=== PATIENT | female | born 1940 | race Caucasian/White ===

== ENCOUNTER → 2017-07-18 | Outpatient (CLI) | payer MEDICARE ==
[~2017-07-18] MED LIST: ASPIR 8181 MG PO; ATENOLOL 50MG T50 M1 PO; CALCIUM 500 +1 EAC5 PO; CIPRO500 MG PO; CLARITIN10 M2 PO; DETROL2 M1 PO; FOSAMAX 70 MG T70 MG PO; GLUCOPHAGE XR500 MG PO; HYDRALAZINE 2525 MG PO; LISINOPRIL20 MG PO; LISINOPRIL40 MG PO; MOBIC15 MG PO; NEURONTIN 300300 M1 PO; THIAMINE HCL100 MG PO; TRAMADOL 50 MG50 MG PO; TYLENOL EXTRA500 MG PO; VITAFOL-OB+DHA1 EACH PO; VITAMIN E400 UNIT PO; ZOCOR20 MG PO
== END ==
LOC: M.ULTRA 09:25
DX: I10 Essential (primary) hypertension (principal); E11.9 Type 2 diabetes mellitus without complications

== ENCOUNTER 2017-09-09 16:18 | Inpatient (IN) | payer MEDICARE ==
[~2017-09-09] VITALS: Ht 170.2 cm; Wt 52.6 kg
[~2017-09-09 16:18] MED LIST changes: -CIPRO500 MG PO; -DETROL2 M1 PO; -HYDRALAZINE 2525 MG PO; -LISINOPRIL40 MG PO; -THIAMINE HCL100 MG PO; -VITAFOL-OB+DHA1 EACH PO
[2017-09-09 16:25] VITALS: BP 216/91
--- NOTE | 2017-09-09 18:05 | NUR ---
PT ATTEMPTED TO URINATE AT THIS TIME, UNSUCCESSFUL. GIVEN WATER TO DRINK.
[2017-09-09 18:08] LABS: ABSOLUTE LYMPHOCYTES 0.8 thou/uL (0.8-5.3); ABSOLUTE MONOCYTES 0.6 thou/uL (0.0-1.2); ABSOLUTE NEUTROPHILS 6.9 thou/uL (1.6-8.1); BASOPHILS 0.5 %; HEMATOCRIT 45.4 % (37.0-47.0); HEMOGLOBIN 15.2 gm/dL (12.0-15.0); LYMPHOCYTES 10.1 %; MCH 29.8 pg (26.0-34.0); MCHC 33.5 g/dL (28.0-37.0); MCV 89.1 fL (80.0-100.0); MONOCYTES 6.8 %; MPV 7.4 fl. (7.2-11.1); NUCLEATED RBCS 0 /100WBC; PLATELET COUNT* 212 thou/uL (150-400); POLYS 82.6 %; WBC 8.4 thou/uL (4.0-11.0)
[2017-09-09 18:16] LABS: CALCIUM 8.8 mg/dL (8.5-10.1); CREATININE 0.6 mg/dL (0.6-1.3); POTASSIUM 3.9 mmol/L (3.5-5.1)
[2017-09-09 18:18] LABS: INR 1.1; PROTIME 10.8 Seconds (9.20-11.50)
[2017-09-09 18:19] LABS: URINE BILIRUBIN NEGATIVE (Negative); URINE BLOOD 1+ (Negative); URINE CLARITY SL CLOUDY; URINE COLOR YELLOW; URINE GLUCOSE-RANDOM NEGATIVE (Negative); URINE KETONES 2+ (Negative); URINE LEUKOCYTES NEGATIVE (Negative); URINE NITRITE POSITIVE (Negative); URINE PROTEIN TRACE (Negative); URINE UROBILINOGEN 0.2 E.U./dl (0.2-1.0)
[2017-09-09 18:23] LABS: ALBUMIN 3.4 g/dL (3.4-5.0); TOTAL BILIRUBIN 0.6 mg/dL (<0.1-1.0); TOTAL PROTEIN 7.1 g/dL (6.4-8.2)
[2017-09-09 18:25] LABS: BACTERIA >30 Many /HPF (None Seen); CASTS None Seen /LPF (None Seen); CRYSTALS None Seen /LPF (None Seen); SQUAMOUS 0-3 Few /LPF (0-3); URINE RBC 0-2 Rare /HPF (0-2); URINE WBC 0-5 Rare /HPF (0-5)
[2017-09-09 20:18] VITALS: BP 194/84
--- NOTE | 2017-09-09 20:30 | NUR ---
ALERT AND ORIENTED X 4 FEMALE PATIENT TO BED 114 BY CART FROM ER ACCOMPANIED BY IN STABLE CONDITION. ADMISSION ROUTINES IN PROGRESS. CONTINUE TO MONITOR.
[2017-09-09] MEDS ORDERED: DETROL2 M1 PO (21:01)
[2017-09-09] MEDS ORDERED: HYDRALAZINE 2525 MG PO (21:03)
[2017-09-10 04:25] LABS: HEMATOCRIT 41.3 % (37.0-47.0); HEMOGLOBIN 13.9 gm/dL (12.0-15.0); MCH 29.4 pg (26.0-34.0); MCHC 33.6 g/dL (28.0-37.0); MCV 87.4 fL (80.0-100.0); MPV 7.9 fl. (7.2-11.1); RBC 4.72 mil/uL (4.20-5.00); RDW-CV 13.9 % (10.5-14.5); WBC 6.7 thou/uL (4.0-11.0)
[2017-09-10 04:53] LABS: ALBUMIN 2.8 g/dL (3.4-5.0); CALCIUM 8.2 mg/dL (8.5-10.1); CREATININE 0.6 mg/dL (0.6-1.3); POTASSIUM 3.2 mmol/L (3.5-5.1); TOTAL BILIRUBIN 0.5 mg/dL (<0.1-1.0); TOTAL PROTEIN 5.6 g/dL (6.4-8.2)
--- NOTE | 2017-09-10 04:59 | NUR ---
PATIENT HAS REMAINED ALERT AND ORIENTED X 4 THROUGHOUT THE SHIFT WITH SOME SLIGHT FORGETFULNESS. TURNING SELF IN BED. MEDS AND IVF'S PROVIDED ORDERED. RESTING QUIETLY ON HOURLY ROUNDS. CONTINUE TO MONITOR.
[2017-09-10 08:20] VITALS: BP 166/77
--- NOTE | 2017-09-10 13:03 | EKG ---
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: Joelle SANTORO : 1940 Requested By: Adán Garner Order Number: [id number] : Celestine Carrillo Measurements Intervals [place] Rate: 77 P: 18 TX: 175 QRS: -4 QRSD: 93 T: 29 QT: 406 QTc: 460 Interpretive Statements Sinus rhythm Anteroseptal infarct, age indeterminate possible Compared to ECG 08/20/2016 11:22:00 Myocardial infarct finding now present Electronically Signed On 09-10-2017 13:03:34 CDT by Celestine Carrillo [email or web address] <ELECTRONICALLY SIGNED> By: Celestine Carrillo MD, FACC 09/10/17 1303 1836 1836 Celestine Carrillo MD, [facility] /EPI
--- NOTE | 2017-09-10 13:55 | NUR ---
PT.WAS ALERT AND ORIENTED. STATED SHE LIVES WITH HER . HE WORKS FROM ABOUT 7AM TO 5:30 PM. SHE TRIPPED AND FELL AFTER HE LEFT FOR WORK. USUALLY SHE HAS HER CELL PHONE WITH HER AT ALL TIMES BUT SHE DIDN'T TAKE IT WITH HER THAT TIME. SHE HAD TO WAIT UNTIL HE GOT HOME FROM WORK FOR HIM TO HELP HER. SHE MIGHT BE INTERESTED IN A LIFE LINE. SHE USES A CANE AT HOSPITAL. SHE STATED SHE IS NORMALLY INDEPENDENT AT HOME. 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 CM WILL FOLLOW.
--- NOTE | 2017-09-10 16:42 | NUR ---
PATIENT REMAINS ALERT AND ORIENTED. POST OP SHOE IN PLACE. TYLENOL EFFECTIVE FOR GENERAL ACHES. TRANSFERS WITH ASSIST OF 1, GB, AND WALKER. LARGE BM THIS AM. IVF AT 125ML/HR. VOIDING PER TOILET, INCONTINENT AT TIMES. TOLERATING MEALS. PT/OT ORDERED.BED/CHAIR ALARM IN USE. AT BEDSIDE. WILL CONTINUE TO MONITOR.
[2017-09-10 16:55] VITALS: BP 151/79
[2017-09-10 19:40] VITALS: BP 156/63
[2017-09-11] VITALS (7 sets, daily range): BP systolic 147–215; BP diastolic 61–76
[2017-09-11 03:47] LABS: HEMATOCRIT 39.6 % (37.0-47.0); HEMOGLOBIN 13.1 gm/dL (12.0-15.0); MCH 29.7 pg (26.0-34.0); MCHC 33.2 g/dL (28.0-37.0); MCV 89.3 fL (80.0-100.0); RBC 4.43 mil/uL (4.20-5.00); RDW-CV 14.2 % (10.5-14.5); WBC 5.1 thou/uL (4.0-11.0)
[2017-09-11 04:04] LABS: CALCIUM 7.8 mg/dL (8.5-10.1); CREATININE 0.5 mg/dL (0.6-1.3); POTASSIUM 3.8 mmol/L (3.5-5.1)
--- NOTE | 2017-09-11 05:37 | NUR ---
PATIENT HAS REMAINED ALERT AND ORIENTED X 4 WITH FORGETFULNESS. RESTING QUIETLY ON HOURLY ROUNDS. INCONT OF URINE. ASSIST WITH BRIEF CHANGES. TURNING SELF. VITAL SIGNS STABLE. MEDS AND IVF'S PER ORDERS. MEDICATED FOR PAIN X 2 TO GOOD EFFECT. CONTINUE TO MONITOR.
--- NOTE | 2017-09-11 15:16 | NUR ---
Nutrition: Pt seen for low BMI. Pt stated she usually weighed 120#. Her noticed wt loss recently, and when pt came to hospital, she realized she was down to 116#. She stated she didn't know why she has lost wt. She still has a good appetite. Admitted for fall at home. Pt is eating well. No malnutrition noted. She stated she takes Ca and vit D on occasion, not daily because it constipates her. She had some food preferences which RD has alerted kitchen about and ordered. Unintended weight loss R/T etiology unknown AEB pt self report of 4# loss. Encouraged pt to watch her wt and if she loses any more, talk with her PCP about it. Also, mentioned OTC oral supplements. Appears at Mild nutrition risk at this time.
--- NOTE | 2017-09-11 17:57 | NUR ---
PATIENT SOMEWHAT PROGRESSING TOWARDS GOALS. AOX4, BUT VERY FORGETFUL. CAN APPEAR TO BE ORIENTED SOMETIMES WHEN MAKING INAPPROPRAITE STATEMENTS. DENIES PAIN THROUGHOUT SHIFT. REMAINS WEAK AND UNSTEADY UPON STANDING. INCONTINENT TO BRIEF, NEEDS FREQUENT CHECKS PATIENT STATES HER BRIEF IS DRY WHEN IT IS SOILED. BLOOD PRESSURES HAVE REMAINED HIGH THROUGHOUT SHIFT. DR GORDON NOTIFIED, NEW ORDERS FOR QID HYDRALAZINE SCHEDULED. PATIENT'S PRESENT THIS EVENING, HAS LEFT A LIST FOR PHYSICIAN TO ADRESS HIS CONCERNS ABOUT PATIENT AT HOME. OTHERWISE, NO NEW CONCERNS FOR NURSING EXPRESSED.
[2017-09-12 00:28] VITALS: BP 182/75
[2017-09-12 04:19] VITALS: BP 185/66
--- NOTE | 2017-09-12 06:43 | NUR ---
Alert and oriented x 4. Orhto shoe placed on patient for L great toe fracture. She is up with assist x1 to the bedside commode. She is incontinent of urine frequently and has a brief on which is often saturated,skin is intact. She had tylenol for a headache at bedtime. She has slept well.
[2017-09-12 08:30] VITALS: BP 157/77
--- NOTE | 2017-09-12 11:44 | NUR ---
SPOKE WITH PT. ABOUT DISCHARGE PLANNING. SHE WAS AGREEABLE TO GOING TO SNF FOR SHORT TERM. SHE WOULD LIKE TO GO TO [facility]. REFERRAL MADE TO [facility]. FAXED INFORMATION. PROBABLE DISCHARGE TOMORROW. LEFT MESSAGE ON HER HUSBANDS CHRISTEN.
--- NOTE | 2017-09-12 14:33 | NUR ---
[facility] SAID THEY CAN ACCEPT PT.TOMORROW IF READY FOR DISCHARGE. INFORMED PT.AND .
[2017-09-12 15:43] VITALS: BP 152/58
[2017-09-12 20:30] VITALS: BP 170/65
[2017-09-13 00:13] VITALS: BP 170/54
--- NOTE | 2017-09-13 06:57 | NUR ---
ALERT AND ORIENTED X4. DENIES NEED FOR PAIN MEDICATION. NO C/O DIFFICULTY WITH VOIDING. WEIGHTBEARING TOLERATED TO LEFT LOWER EXTREMITY. CALL LIGHT WITHIN REACH. UP WITH 1 ASIST. INCONTINENT X1 LAST NIGHT OF URINE.
[2017-09-13 08:00] VITALS: BP 181/62
[2017-09-13] MEDS ORDERED: LISINOPRIL40 MG PO (08:55)
[2017-09-13] MEDS ORDERED: CIPRO500 MG PO (08:55)
[2017-09-13] MEDS ORDERED: TRAMADOL 50 MG50 MG PO (08:56)
--- NOTE | 2017-09-13 09:25 | NUR ---
TEX called Ernestina with [facility] and discussed pt to dc to SNF today. TEX faxed orders to fax [phone]. Ernestina scheduled transportation for pt to dc to SNF [facility] at 13:00. TEX discussed with pt nurse and with pt/family.
[2017-09-13 12:44] VITALS: BP 181/62
--- NOTE | 2017-09-13 12:58 | NUR ---
PATIENT LEFT UNIT BY WHEELCHAIR WITH NURSING STAFF AT 1300. EDUCATED PATIENT AND ON DISCHARGE INSTRUCTIONS AND NEW MED SCRIPTS. PATIENT AND VERBALIZED UNDERSTANDING. IV DC'D. ALL BELONGINGS LEFT WITH PATIENT.
[2017-09-13 13:02] VITALS: BP 181/62
== END 2017-09-13 13:04 | DRG 563 ==
LOC: M.ERS 16:18 → M.TBA-ER 18:32 → M.ORTHSURG 18:32
PROVIDERS: Family Medicine; Physician Assistant Surgical; ADMIT Internal Medicine
DX: S92.402A Displaced unspecified fracture of left great toe, initial encounter for closed fracture (principal); N39.0 Urinary tract infection, site not specified; E44.1 Mild protein-calorie malnutrition; Z68.1 Body mass index [BMI] 19.9 or less, adult; E11.9 Type 2 diabetes mellitus without complications; F17.210 Nicotine dependence, cigarettes, uncomplicated; I10 Essential (primary) hypertension; G89.29 Other chronic pain; M54.9 Dorsalgia, unspecified; B96.20 Unspecified Escherichia coli [E. coli] as the cause of diseases classified elsewhere; W01.0XXA Fall on same level from slipping, tripping and stumbling without subsequent striking against object, initial encounter; Y93.01 Activity, walking, marching and hiking; Z79.2 Long term (current) use of antibiotics; Z79.82 Long term (current) use of aspirin; Z79.899 Other long term (current) drug therapy; Z88.0 Allergy status to penicillin; Z88.2 Allergy status to sulfonamides; Y92.098 Other place in other non-institutional residence as the place of occurrence of the external cause; Y99.8 Other external cause status

== ENCOUNTER 2018-01-25 13:34 | Inpatient (IN) | payer MEDICARE ==
[~2018-01-25] VITALS: Ht 170.2 cm; Wt 55.3 kg
[~2018-01-25 13:34] MED LIST changes: +CIPRO500 MG PO; +DETROL2 M1 PO; +HYDRALAZINE 2525 MG PO; +LISINOPRIL40 MG PO
[2018-01-25 13:38] VITALS: BP 175/72
[2018-01-25 14:26] LABS: ABSOLUTE BASOPHILS 0.1 thou/uL (0.0-0.2); ABSOLUTE EOSINOPHILS 0.1 thou/uL (0.0-0.7); ABSOLUTE LYMPHOCYTES 1.3 thou/uL (0.8-5.3); ABSOLUTE MONOCYTES 0.5 thou/uL (0.0-1.2); ABSOLUTE NEUTROPHILS 4.4 thou/uL (1.6-8.1); BASOPHILS 1.2 %; EOSINOPHILS 1.2 %; HEMATOCRIT 48.3 % (37.0-47.0); HEMOGLOBIN 15.8 gm/dL (12.0-15.0); LYMPHOCYTES 20.9 %; MCH 29.4 pg (26.0-34.0); MCHC 32.8 g/dL (28.0-37.0); MCV 89.5 fL (80.0-100.0); MONOCYTES 7.9 %; NUCLEATED RBCS 0 /100WBC; PLATELET COUNT* 195 thou/uL (150-400); POLYS 68.8 %; RBC 5.39 mil/uL (4.20-5.00); RDW-CV 13.6 % (10.5-14.5); WBC 6.4 thou/uL (4.0-11.0)
[2018-01-25 14:41] LABS: INR 1.1; PROTIME 10.8 Seconds (9.20-11.50)
[2018-01-25 14:56] LABS: ANION GAP 8 mmol/L (7-16); BUN 15 mg/dL (7-18); CALCIUM 8.6 mg/dL (8.5-10.1); CHLORIDE 101 mmol/L (98-107); CO2 29 mmol/L (21-32); CREATININE 0.8 mg/dL (0.6-1.3); GLUCOSE 145 mg/dL (70-99); POTASSIUM 3.6 mmol/L (3.5-5.1); SODIUM 138 mmol/L (136-145)
[2018-01-25 15:03] LABS: ALBUMIN 3.1 g/dL (3.4-5.0); ALKALINE PHOSPHATASE 89 U/L (46-116); SGOT 49 U/L (15-37); SGPT 44 U/L (30-65); TOTAL BILIRUBIN 0.4 mg/dL (<0.1-1.0); TOTAL PROTEIN 6.8 g/dL (6.4-8.2); TROPONIN-I LEVEL <0.06 ng/mL (<0.06)
[2018-01-25 15:39] LABS: URINE BILIRUBIN NEGATIVE (Negative); URINE BLOOD NEGATIVE (Negative); URINE CLARITY CLEAR; URINE COLOR YELLOW; URINE GLUCOSE-RANDOM NEGATIVE (Negative); URINE KETONES NEGATIVE (Negative); URINE LEUKOCYTES-REFLEX NEGATIVE (Negative); URINE NITRITE-REFLEX NEGATIVE (Negative); URINE PROTEIN NEGATIVE (Negative); URINE UROBILINOGEN 0.2 E.U./dl (0.2-1.0)
[2018-01-25 16:46] VITALS: BP 187/76
[2018-01-25 17:11] VITALS: BP 199/90
[2018-01-25 20:00] VITALS: BP 142/65
[2018-01-26] VITALS: BP 164/64
[2018-01-26 04:00] VITALS: BP 167/68
[2018-01-26 08:00] VITALS: BP 175/67
--- NOTE | 2018-01-26 10:02 | EKG ---
[place] [address] ELECTROCARDIOGRAM REPORT Name: SHYANNE VILLAGOMEZ Room: [address] ADM IN .R.#: [id number] Admission: 01/25/18 Attend Phys: Benjamin Vazquez MD Discharge: Date of : 40 Report #: [id number] THIS REPORT FOR: //name// [facility] ED Test Date: 2018-01-25 Test Time: 14:36:08 Pat Name: SHYANNE VILLAGOMEZ Department: Room: [facility] Gender: F Fire Official: Joelle FINN : 1940 Requested By: Bing Nayak Order Number: [id number] MD: Jose Stephenson Measurements Intervals [place] Rate: 62 P: -7 IN: 176 QRS: -15 QRSD: 83 T: 17 QT: 449 QTc: 456 Interpretive Statements Sinus rhythm Probable left atrial enlargement Borderline left axis deviation Minimal ST depression, lateral leads Compared to ECG 09/09/2017 18:36:35 Myocardial infarct finding no longer present Electronically Signed On 01-26-2018 10:02:12 CDT by Jose Stephenson [email or web address] <ELECTRONICALLY SIGNED> By: Jose Stephenson MD, FACC 01/26/18 1002 1436 1436 Jose Stephenson MD, [facility] /EPI
[2018-01-26 11:44] LABS: HEMOGLOBIN 14.4 gm/dL (12.0-15.0); MCHC 32.7 g/dL (28.0-37.0); MCV 88.9 fL (80.0-100.0); RBC 4.94 mil/uL (4.20-5.00); RDW-CV 13.5 % (10.5-14.5); WBC 5.1 thou/uL (4.0-11.0)
[2018-01-26 11:49] VITALS: BP 135/74
[2018-01-26 12:13] LABS: ALBUMIN 2.6 g/dL (3.4-5.0); CALCIUM 8.5 mg/dL (8.5-10.1); CREATININE 0.7 mg/dL (0.6-1.3); POTASSIUM 3.6 mmol/L (3.5-5.1); TOTAL BILIRUBIN 0.5 mg/dL (<0.1-1.0); TOTAL PROTEIN 5.8 g/dL (6.4-8.2)
[2018-01-26 15:45] VITALS: BP 158/67
[2018-01-26 19:45] VITALS: BP 179/85
[2018-01-27] VITALS: BP 158/68
[2018-01-27 04:00] VITALS: BP 169/59
[2018-01-27 08:00] VITALS: BP 155/63
[2018-01-27 12:00] VITALS: BP 118/66
--- NOTE | 2018-01-27 13:54 | 2DMMODE ---
[place] [address] 2 D/M-MODE ECHOCARDIOGRAM Name: SHYANNE VILLAGOMEZ Room: [address] IN [facility]#: [id number] Admission: 01/25/18 Attend Phys: Benjamin Vazquez, Discharge: Date of : 40 Date of Service: 01/27/18 1354 Report #: [id number] THIS REPORT FOR: //name// APPROVED REPORT Study performed: 01/27/2018 10:31:00 EXAM: Comprehensive 2D, Doppler, and color-flow Echocardiogram Patient Location: In-Patient Room #: [facility] Status: routine BSA: 1.57 HR: 56 bpm BP: 155/63 mmHg Rhythm: NSR Other Information Study Quality: Good Indications CVA/TIA Murmur Echo Enhancing Agent Indication: Rule out Shunt Agent(s) / Amount(s) Used: Agitated Saline 10 cc 2D Dimensions IVSd: 16.46 (7-11mm) LVOT Diam: 19.65 (18-24mm) LVDd: 27.25 mm PWd: 16.63 (7-11mm) Ascending Ao: 34.62 (22-36mm) LVDs: 16.40 (25-40mm) Aortic Root: 30.29 mm Volumes Left Atrial Volume (Systole) LA ESV Index: 38.80 mL/m2 Aortic Valve AoV Peak Robinson.: 1.51 m/s AO Peak Gr.: 9.11 mmHg LVOT Max P.69 mmHg AO Mean Gr.: 4.71 mmHg LVOT Mean P.82 mmHg LVOT Max V: 0.96 m/s AO V2 VTI: 34.05 cm LVOT Mean V: 0.62 m/s CHARLES (VTI): 2.05 cm2 LVOT V1 VTI: 23.06 [place] [address] 2 D/M-MODE ECHOCARDIOGRAM Name: SHYANNE VILLAGOMEZ Room: [address] IN .R.#: [id number] Admission: 01/25/18 Attend Phys: Benjamin Vazquez, Discharge: Date of : 40 Date of Service: 01/27/18 1354 Report #: [id number] Mitral Valve MV Mean Gr.: 1.95 mmHg E/A Ratio: 0.77 MV Decel. Time: 394.68 ms MV E Max Robinson.: 0.83 m/s MV PHT: 114.46 ms MVA (PHT): 1.92 cm2 TDI E/Lateral E': 13.83 E/Medial E': 11.86 Medial E' Robinson.: 0.07 m/s Lateral E' Robinson.: 0.06 m/s Pulmonary Valve PV Peak Robinson.: 0.71 m/s PV Peak Gr.: 2.01 mmHg Tricuspid Valve RAP Estimate: 5.00 mmHg TR Peak Gr.: 17.88 mmHg RVSP: 23.00 mmHg PA Pressure: 23.00 mmHg Left Ventricle The left ventricle is normal size. There is normal LV segmental wall motion. Moderate concentric left ventricular hypertrophy. Left ventricular systolic function is normal. The left ventricular ejection fraction is within the normal range. LVEF is >70%. Grade I - abnormal relaxation pattern. Right Ventricle The right ventricle is normal size. The right ventricular systolic function is normal. Atria Left atrium is mildly dilated. Interatrial septum is intact without evidence of ASD or PFO. The right atrium size is normal. Aortic Valve Mild aortic valve sclerosis. No aortic regurgitation is present. There is no aortic valvular stenosis. Mitral Valve There is severe mitral annular calcification. Trace mitral regurgitation. No mitral stenosis. Tricuspid Valve The tricuspid valve is normal in structure[place] [address] 2 D/M-MODE ECHOCARDIOGRAM Name: SHYANNE VILLAGOMEZ Room: [address] IN M.R.#: [id number] Admission: 01/25/18 Attend Phys: Benjamin Vazquez, Discharge: Date of : 40 Date of Service: 01/27/18 1354 Report #: [id number] regurgitation. No pulmonary hypertension. Pulmonic Valve The pulmonary valve is normal in structure. There is no pulmonic valvular regurgitation. Great Vessels The aortic root is normal in size. IVC is normal in size and collapses >50% with inspiration. Pericardium There is no pericardial effusion. <Conclusion> The left ventricle is normal size. Moderate concentric left ventricular hypertrophy. There is normal LV segmental wall motion. LVEF is >70%. There is severe mitral annular calcification. No mitral stenosis. Grade I - abnormal relaxation pattern. Mild aortic valve sclerosis. There is no aortic valvular stenosis. No aortic regurgitation is present. <ELECTRONICALLY SIGNED> By: Gerson Perez MD, FACC 01/27/18 1354 53 135 Gerson Perez MD, FACC /INF
[2018-01-27 16:00] VITALS: BP 167/71
[2018-01-27 20:00] VITALS: BP 179/69
[2018-01-28] VITALS (7 sets, daily range): BP systolic 160–187; BP diastolic 70–77
[2018-01-28] MEDS ORDERED: THIAMINE HCL100 MG PO (12:43)
[2018-01-28] MEDS ORDERED: VITAFOL-OB+DHA1 EACH PO (12:45)
--- NOTE | 2018-01-30 19:14 | CON ---
[address] [address] CONSULTATION Name: SHYANNE VILLAGOMEZ Room: [address] IN M.R.#: [id number] Admission: 01/25/18 Attend Phys: Benjamin Vazquez MD Discharge: 01/28/18 Date of : 40 Report #: [id number] THIS REPORT FOR: //name// CC: Socorro Carbone DATE OF SERVICE: 01/26/2018 HISTORY OF PRESENT ILLNESS: This is a 77-year-old female patient who indicated that she woke up yesterday because she was having some difficulty with double vision. Further history is not clear because the patient does not know where the double vision is. It is moderately severe. She tells me that it is not associated with any headache, but had that headache earlier. She has difficulty with walking in her baseline. That is longstanding. Apparently, there is difficulty with the walking became worst when it happened and then, she fell down. She did not pass out. She did not have any documented hypotension and in fact, she checks her blood pressure on a regular basis and she does not have any history of hypotension. REVIEW OF SYSTEMS: Indicates that she has some bulging disk. She has some sciatica, hypertension, diabetes. Her blood pressure usually stays higher than normal. She denies any history of stroke. She has no new eye, ENT, respiratory, GI, , musculoskeletal, constitutional, dermatological, hematological, psychiatric, throat, allergic symptoms associated with present symptomatology. PAST MEDICAL HISTORY: Negative for any stroke. FAMILY HISTORY: Negative for any early age stroke. SOCIAL HISTORY: She smokes about 1 pack a day and she drinks at least 2 alcoholic drinks every night. PHYSICAL EXAMINATION: Indicates that she is alert, oriented. Her speech, concentration, fund of knowledge and memory is at her baseline. Cranial nerve examination 2-12 indicates that there may be mild nystagmus, some difficulty in adducting the left eye, but was otherwise unremarkable. She has symmetrical strength, sensation, reflexes and tone in all 4 extremities. There is no cerebellar sign. I could not look at the fundus. Pulses are difficult to feel. She has no edema, cyanosis or jaundice. She is thinly built individual who does not have any dysmorphic features of eyes, ears and face. Cardiac examination is unremarkable. No respiratory difficulty, but some rhonchi was noticed on both sides. Her blood pressure was 135/74, pulse is 67, temperature is 99.4. [place] [address] CONSULTATION Name: SHYANNE VILLAGOMEZ Room: [address]#: [id number] Admission: 01/25/18 Attend Phys: Benjamin Vazquez MD Discharge: 01/28/18 Date of : 40 Report #: [id number] LABORATORY DATA: White count is normal at 5.1. GFR is normal at 81. She did have an MRI of the brain, which does not show any acute changes. MRAs were also mostly unremarkable except for slight stenosis. IMPRESSION: The patient gives a history of walking difficulty as well as some difficulty with double vision. History is poorly defined. She does have some nonspecific paresthesias also there. We will check some more blood workup like TSH and collagen vascular workup. I doubt we will find any etiologies. She does need an ENT evaluation. I will go ahead and give her a thiamine. RECOMMENDATION: 1. Thiamine. 2. Evaluation by PT, OT. 3. TSH. 4. Vitamin B12. 5. We will see if any of this workup show any etiology and then go from there. Thank you very much for this referral. <ELECTRONICALLY SIGNED> By: Ajay Negron MD 01/30/181913 19 36Ajay Negron MD /nt
== END 2018-01-28 18:16 | disposition home or self-care (01) | DRG 69 ==
LOC: M.ERS 13:34 → M.2W 15:08 → M.TBA-ER 15:08 → M.2W 16:58
PROVIDERS: Internal Medicine; Nurse Practitioner Family
DX: G45.9 Transient cerebral ischemic attack, unspecified (principal); E44.0 Moderate protein-calorie malnutrition; Z68.1 Body mass index [BMI] 19.9 or less, adult; R27.0 Ataxia, unspecified; E78.5 Hyperlipidemia, unspecified; E11.9 Type 2 diabetes mellitus without complications; I10 Essential (primary) hypertension; R01.1 Cardiac murmur, unspecified; F17.210 Nicotine dependence, cigarettes, uncomplicated; I35.8 Other nonrheumatic aortic valve disorders; F10.10 Alcohol abuse, uncomplicated; M54.30 Sciatica, unspecified side; E56.9 Vitamin deficiency, unspecified; Z79.82 Long term (current) use of aspirin; Z79.84 Long term (current) use of oral hypoglycemic drugs; Z88.2 Allergy status to sulfonamides; Z79.899 Other long term (current) drug therapy; Z88.0 Allergy status to penicillin; Z86.73 Personal history of transient ischemic attack (TIA), and cerebral infarction without residual deficits; Z71.6 Tobacco abuse counseling

== ENCOUNTER 2018-08-18 17:14 | Emergency (ER) | payer MEDICARE ==
[~2018-08-18] VITALS: Ht 170.2 cm; Wt 56.7 kg
[~2018-08-18 17:14] MED LIST changes: +THIAMINE HCL100 MG PO; +VITAFOL-OB+DHA1 EACH PO
[2018-08-18 17:56] LABS: ABSOLUTE BASOPHILS 0.1 thou/uL (0.0-0.2); ABSOLUTE LYMPHOCYTES 1.3 thou/uL (0.8-5.3); ABSOLUTE MONOCYTES 0.6 thou/uL (0.0-1.2); ABSOLUTE NEUTROPHILS 5.6 thou/uL (1.6-8.1); BASOPHILS 1.1 %; EOSINOPHILS 0.3 %; HEMATOCRIT 45.7 % (37.0-47.0); HEMOGLOBIN 15.3 gm/dL (12.0-15.0); LYMPHOCYTES 16.6 %; MCH 29.8 pg (26.0-34.0); MCHC 33.5 g/dL (28.0-37.0); MCV 89.1 fL (80.0-100.0); MONOCYTES 7.7 %; MPV 8.1 fl. (7.2-11.1); NUCLEATED RBCS 0 /100WBC; PLATELET COUNT* 198 thou/uL (150-400); POLYS 74.3 %; RBC 5.13 mil/uL (4.20-5.00); RDW-CV 13.4 % (10.5-14.5); WBC 7.5 thou/uL (4.0-11.0)
[2018-08-18 18:05] LABS: CALCIUM 9.2 mg/dL (8.5-10.1); CREATININE 0.6 mg/dL (0.6-1.3); POTASSIUM 4.7 mmol/L (3.5-5.1)
[2018-08-18 18:14] LABS: ALBUMIN 3.6 g/dL (3.4-5.0); TOTAL BILIRUBIN 1.1 mg/dL (<0.1-1.0); TOTAL PROTEIN 7.8 g/dL (6.4-8.2)
[2018-08-18 19:40] LABS: URINE BILIRUBIN NEGATIVE (Negative); URINE BLOOD TRACE (Negative); URINE CLARITY CLEAR; URINE COLOR YELLOW; URINE GLUCOSE-RANDOM NEGATIVE (Negative); URINE KETONES TRACE (Negative); URINE PROTEIN NEGATIVE (Negative); URINE SPECIFIC GRAVITY 1.015 (1.005-1.030); URINE UROBILINOGEN 0.2 E.U./dl (0.2-1.0)
[2018-08-18 19:46] LABS: URINE LEUKOCYTES-REFLEX 2+ (Negative); URINE NITRITE-REFLEX POSITIVE (Negative)
[2018-08-18 19:47] LABS: BACTERIA-REFLEX >30 Many /HPF (None Seen); CASTS None Seen /LPF (None Seen); CRYSTALS None Seen /LPF (None Seen); SQUAMOUS NONE SEEN /LPF (0-3); URINE RBC None Seen /HPF (0-2); URINE WBC-REFLEX 0-5 Rare /HPF (0-5)
[2018-08-18] MEDS ORDERED: CIPRO250 M1 PO (19:58)
[2018-08-18 20:34] VITALS: BP 212/104
--- NOTE | 2018-08-19 10:48 | EKG ---
[place] [address] ELECTROCARDIOGRAM REPORT Name: SHYANNE VILLAGOMEZ Room: [facility]#: [id number] Admission: 08/18/18 Attend Phys: Discharge: 08/18/18 Date of : 40 Report #: [id number] THIS REPORT FOR: //name// [facility] ED Test Date: 2018-08-18 Test Time: 19:07:26 Pat Name: SHYANNE GATESSYDNEY Department: Room: Gender: F Manager Instrumentation: Joelle LANIER : 1940 Requested By: Tanja Buckner Order Number: [id number] MD: Jose Stephenson Measurements Intervals [place] Rate: 69 P: 19 TN: 170 QRS: -6 QRSD: 95 T: 30 QT: 433 QTc: 464 Interpretive Statements Sinus rhythm Minimal ST depression, lateral leads Baseline wander in lead(s) I,III,aVL,aVF Compared to ECG 01/25/2018 14:36:08 No significant changes Electronically Signed On 08-19-2018 10:48:05 CDT by Jose Stephenson [email or web address] <ELECTRONICALLY SIGNED> By: Jose Stephenson MD, [facility] 08/19/18 1048 1907 1907 Jose Stephenson MD, [facility] /EPI
== END 2018-08-18 20:34 | disposition home or self-care (01) ==
LOC: M.ERS 17:14
PROVIDERS: Personal Emergency Response Attendant
DX: R41.82 Altered mental status, unspecified (principal); N39.0 Urinary tract infection, site not specified; I10 Essential (primary) hypertension; E11.9 Type 2 diabetes mellitus without complications; M54.30 Sciatica, unspecified side; Z88.0 Allergy status to penicillin; Z88.2 Allergy status to sulfonamides

== ENCOUNTER 2018-10-17 12:24 | Inpatient (IN) | payer MEDICARE ==
[~2018-10-17] VITALS: Ht 170.2 cm; Wt 56.7 kg
[~2018-10-17 12:24] MED LIST changes: +CIPRO250 M1 PO
[2018-10-17 12:27] VITALS: BP 163/57
[2018-10-17 14:09] LABS: HEMATOCRIT 41.5 % (37.0-47.0); HEMOGLOBIN 13.9 gm/dL (12.0-15.0); MCH 29.7 pg (26.0-34.0); MCHC 33.4 g/dL (28.0-37.0); MPV 7.2 fl. (7.2-11.1); NUCLEATED RBCS 0 /100WBC; PLATELET COUNT* 216 thou/uL (150-400); RBC 4.67 mil/uL (4.20-5.00); WBC 11.4 thou/uL (4.0-11.0)
[2018-10-17 14:22] LABS: ANION GAP 9 mmol/L (7-16); BUN 15 mg/dL (7-18); CHLORIDE 92 mmol/L (98-107); CO2 27 mmol/L (21-32); CREATININE 0.9 mg/dL (0.6-1.3); GLUCOSE 121 mg/dL (70-99); SODIUM 128 mmol/L (136-145)
[2018-10-17 14:23] LABS: ABSOLUTE EOSINOPHILS 0.2 thou/uL (0.0-0.7); ABSOLUTE LYMPHOCYTES 0.6 thou/uL (0.8-5.3); ABSOLUTE MONOCYTES 0.2 thou/uL (0.0-1.2); ABSOLUTE NEUTROPHILS 10.4 thou/uL (1.6-8.1); ANISOCYTOSIS 1+; PLATELET ESTIMATE ADEQUATE; POIKILOCYTOSIS 1+
[2018-10-17 14:32] LABS: ALBUMIN 3.1 g/dL (3.4-5.0); ALKALINE PHOSPHATASE 77 U/L (46-116); LIPASE 136 U/L (73-393); SGOT 19 U/L (15-37); SGPT 12 U/L (30-65); TOTAL BILIRUBIN 0.7 mg/dL (<0.1-1.0); TOTAL PROTEIN 6.9 g/dL (6.4-8.2); TROPONIN-I LEVEL <0.06 ng/mL (<0.06)
[2018-10-17] MEDS ORDERED: MOBIC15 MG PO (14:53)
[2018-10-17 17:30] VITALS: BP 137/78
[2018-10-17 17:36] VITALS: BP 187/76
--- NOTE | 2018-10-17 19:35 | NUR ---
RECEIVED REPORT FROM ER AT 1730. PT AOX4, UP WITH ASSIST. 02 SAT 90'S RA. TELE IN PLACED TRACING SR ON MONITOR. DENIES PAIN. PT LUNG SOUND DIMINISHED. LAST BM TODAY, HAD DIARRHEA. PT FOR ACCU CHECK. ADMISSION ASSESSMENT CHARTED. GIVE REPORT TO GISELE SANDOVAL. FALL PRECAUTION, HOURLY ROUNDING. CALL LIGHT WITHIN REACH. WILL CONTINUE TO MONITOR.
[2018-10-17 20:00] VITALS: BP 136/54
[2018-10-18] VITALS (92 sets, daily range): BP systolic 41–190; BP diastolic 21–100
--- NOTE | 2018-10-18 01:03 | NUR ---
PT ALERT ORIENTED, UP TO BR WITH ASSIST OF ONE. ON RA. SWALLOWING WITHOUT CHOKING, COUGHING OR POCKETING OF FOOD. AT INITAL ASSESSMENT NO IVF RUNNING ON PT. ORDER FOUND FOR IVF. NS AT 100MLS/HR STARTED AT 2140. TELEMETRY SHOWS SR.
[2018-10-18 03:55] LABS: ABSOLUTE LYMPHOCYTES 2.1 thou/uL (0.8-5.3); ABSOLUTE MONOCYTES 0.7 thou/uL (0.0-1.2); ABSOLUTE NEUTROPHILS 7.5 thou/uL (1.6-8.1); BASOPHILS 0.4 %; EOSINOPHILS 0.1 %; HEMATOCRIT 31.2 % (37.0-47.0); LYMPHOCYTES 20.4 %; MCH 29.7 pg (26.0-34.0); MCHC 33.2 g/dL (28.0-37.0); MCV 89.5 fL (80.0-100.0); MONOCYTES 6.5 %; MPV 7.4 fl. (7.2-11.1); NUCLEATED RBCS 0 /100WBC; PLATELET COUNT* 269 thou/uL (150-400); POLYS 72.6 %; RBC 3.49 mil/uL (4.20-5.00); RDW-CV 12.9 % (10.5-14.5); WBC 10.3 thou/uL (4.0-11.0)
[2018-10-18 03:56] LABS: HEMOGLOBIN 10.4 gm/dL (12.0-15.0)
[2018-10-18 04:13] LABS: ALBUMIN 2.2 g/dL (3.4-5.0); CREATININE 0.8 mg/dL (0.6-1.3); POTASSIUM 4.2 mmol/L (3.5-5.1); TOTAL BILIRUBIN 0.5 mg/dL (<0.1-1.0); TOTAL PROTEIN 4.8 g/dL (6.4-8.2)
[2018-10-18 04:34] LABS: HEMATOCRIT 28.2 % (37.0-47.0); HEMOGLOBIN 9.3 gm/dL (12.0-15.0)
[2018-10-18 05:24] LABS: CHOLESTEROL 84 mg/dL (<200); HDL CHOLESTEROL 38 mg/dL (>40); LDL CHOLESTEROL 34 mg/dL (<100); TC:HDL 2.2 Ratio (Not establshd); TRIGLYCERIDE 64 mg/dL (<150); VLDL 13 mg/dL (<40)
--- NOTE | 2018-10-18 05:26 | NUR ---
APPROX 0315 HR NOTED TO BE 120 PREVIOUSLY IN THE 70S. UPON CHECKING A LARGE AMT OF BLOODY EMESIS AROUND PT. BLOOD PRESSUER DOWN TO 60S/29. DR EDGAR NOTIFIED. 1500ML NS BOLUS GIVEN. BP STABLE AFTER FLUID BOLUS. ORDERS FOR LABS, PROTONIX QTT. TYPE AND SCREEN. HGB DROP FROM 13.9 TO 10.4. APPROX 40 MIN LATER PT HAD ANOTHER EPISOID OF EMESIS. HGB 9.3. DR ORTIZ CONSULTED. PT TRANSFED TO ICU. DR ORTIZ ORDERED A OCTREOTIDE QTT. REPORT GIVEN TO BELINDA SANDOVAL.
[2018-10-18 05:47] LABS: SERUM ASSESSMENT CLEAR
[2018-10-18 06:49] LABS: HEMATOCRIT 18.8 % (37.0-47.0); HEMOGLOBIN 6.1 gm/dL (12.0-15.0)
--- NOTE | 2018-10-18 07:09 | NUR ---
ATTEMPTED TO REACH BY PHONE NUMBER LISTED IN PROFILE, UNABLE TO REACH, GOES STRAIGHT TO VOICEMAIL. ALL CONSENTS UNABLE TO GET SIGNED, MEDICAL NECESSITY
--- NOTE | 2018-10-18 07:51 | NUR ---
PATIENT ARRIVED ON UNIT FROM TELEMETRY AT 0500. AT 0530, PATIENT HAD A LARGE BLOODY EMESIS AND LOOSE BOWEL MOVEMENT. CALLED GI TO REPORT PATIENT STATUS, WAS TOLD GI PHYSICIAN WOULD COME SEE PATIENT AT 0930 WHEN THEY CAME IN. PATIENT STATUS CONTINUED TO DECLINE. FLOATER OPERATOR NOTIFIED OF SITUATION. PATIENT BECAME LETHARGIC AT 0645. HGB CHECKED, DOWN TO 6.8. BLOOD PRODUCT ORDERED AND TRANSFUSING. PATIENT CURRENTLY HAVING CENTRAL LINE PLACED AND ET TUBE PUT IN. DOPAMINE ORDERED, MAXED OUT AT 20. BP REMAINS SOFT. REPORT GIVEN TO DAY NURSE. PATIENT TO UNDERGO EGD EMERGENTLY. UNABLE TO CONTACT FOR CONSENT, CONSENT DONE EMERGENTLY. PHYSICIANS IN ROOM WITH PATIENT.
[2018-10-18 07:53] LABS: INR 1.3; PROTIME 13.2 Seconds (9.20-11.50)
--- NOTE | 2018-10-18 08:14 | NUR ---
EGD BEING DONE AT BEDSIDE AT THIS TIME. PATIENT INTUBATED BY DR CRUZ. 2 UNITS OF BLOOD TRANSFUSED AND H&H RECHECK AT 0900.
[2018-10-18 09:23] LABS: HEMATOCRIT 38.5 % (37.0-47.0)
[2018-10-18 09:24] LABS: HEMOGLOBIN 12.5 gm/dL (12.0-15.0)
--- NOTE | 2018-10-18 11:00 | NUR ---
DR GIBBS PULLED BACK CENTRAL LINE DUE TO IT BEING IN THE [facility]. TOLERATED WELL AND CXR CONFIRMED IT WAS IN THE RIGHT POSITION NOW. KUB ORDERED FOR NEW PLACEMENT OF OG TUBE, CONFIRMED POSITION. NAVARRO CATHETER INSERTED AND FLOWING LIGHT YELLOW URINE. HEMOGLOBIN STABLE AT THIS TIME. REMAINS ON PRESSORS AT THIS TIME.
--- NOTE | 2018-10-18 11:37 | NUR ---
ATTEMPTED TO CALL TO INFORM HIM OF PATIENT STATUS BUT AGAIN WENT STRAIGHT TO VOICEMAIL.
[2018-10-18 11:58] LABS: BE -11.6 mmol/L (-2 to +3); PCO2 34.5 mmHg (35.0-45.0)
[2018-10-18 12:01] LABS: PO2 233.7 mmHg (75.0-100.0); pH 7.247 (7.340-7.450)
[2018-10-18 12:37] LABS: URINE BILIRUBIN NEGATIVE (Negative); URINE BLOOD NEGATIVE (Negative); URINE CLARITY CLEAR; URINE COLOR YELLOW; URINE GLUCOSE-RANDOM 1+ (Negative); URINE KETONES NEGATIVE (Negative); URINE LEUKOCYTES-REFLEX NEGATIVE (Negative); URINE NITRITE-REFLEX NEGATIVE (Negative); URINE PROTEIN NEGATIVE (Negative); URINE UROBILINOGEN 0.2 E.U./dl (0.2-1.0)
[2018-10-18 12:45] LABS: AMP/METHAMP Negative (Negative); BARBITURATES Negative (Negative); BENZODIAZEPINES Negative (Negative); COCAINE Negative (Negative); METHADONE Negative (Negative); OPIATES Negative (Negative); PCP Negative (Negative); THC Negative (Negative)
--- NOTE | 2018-10-18 17:52 | NUR ---
DIRK JAFFE TAKEN OFF, TEMPERATURE FINALLY AT 99.3 FROM 94.5
--- NOTE | 2018-10-18 18:53 | NUR ---
PATIENT PROGRESSING WELL TOWARDS GOALS, STABLIZED OUT ON SMALL AMOUNT OF DOPAMINE. REPEAT EGD TOMORROW PER DR LORA, RESIDENTIAL SALES MANAGER NOTIFIED. 2 UNITS OF BLOOD TRANFUSED AND HEMOGLOBIN STABLIZED. CALLED, UPDATED ON PLAN OF CARE. HE WILL BE HERE TOMORROW MORNING TO CHECK ON PATIENT AGAIN. DID COME BY THIS AFTERNOON AND SEEN HER. ALL QUESTIONS ANSWERED. RESTRAINTS IN PLACE, DOBIE MAN IN PLACE, BED IN LOWEST POSITION.
[2018-10-19] VITALS (123 sets, daily range): BP systolic 62–185; BP diastolic 28–83
[2018-10-19 03:09] LABS: GLYCOHEMOGLOBIN (HGB A1C) 5.4 % (4.8-5.6)
--- NOTE | 2018-10-19 05:27 | NUR ---
REPORT RECIEVED FROM OFF GOINGSHIFT AND CARE ASSUMMED. PT WILL OPEN EYE AND ATTEMPTS TO HELP TURN SELF DURING POSITION CHANGES. PT IS CALM AND OCOPERATIVE. DOPAMINE INFUSING VIA PUMP INSTRUCTED FOR SOFT BPS. SEE CHARTING FOR DETAILS. NAVARRO INTACT AND PATENT DRAINING YELLOW URINE TO BEDSIDE BAG. VSS AND NO ACUTE CHANGES DURING SHIFT. OGT INTACT AND CONNECTED TO LIS DRAINING BLACK SECRETIONS. MONITORS INTACT AND ALARMS SET. ETT 7.5 23@ LIP INTACT AND CONNECTED TO VENTILATOR. SETTING AT BEGINNING OF SHIFT AC 16 TV 450 PEEP 5 AND FIO2 45%. CURRENTLY SETTINGS ARE AC 16, TV 450, PEEP 5, AND FIO2 35%... AND PT TOLERATING WELL. WILL CONTINUE TO MONITOR
[2018-10-19 06:00] LABS: BE -10.9 mmol/L (-2 to +3); PCO2 30.7 mmHg (35.0-45.0)
[2018-10-19 06:01] LABS: pH 7.291 (7.340-7.450)
[2018-10-19 06:02] LABS: PO2 142.5 mmHg (75.0-100.0)
[2018-10-19 07:54] LABS: HEMATOCRIT 27.9 % (37.0-47.0); MCHC 34.8 g/dL (28.0-37.0); MPV 7.8 fl. (7.2-11.1); RBC 3.13 mil/uL (4.20-5.00); RDW-CV 13.8 % (10.5-14.5); WBC 10.6 thou/uL (4.0-11.0)
[2018-10-19 08:00] LABS: HEMOGLOBIN 9.7 gm/dL (12.0-15.0)
[2018-10-19 08:27] LABS: CALCIUM 6.1 mg/dL (8.5-10.1); CREATININE 0.8 mg/dL (0.6-1.3); POTASSIUM 3.2 mmol/L (3.5-5.1)
--- NOTE | 2018-10-19 12:00 | NUR ---
PT.'S NOW AT BEDSIDE. SPOKE WITH HIM ABOUT PT. HE SAID THEY HAVE BEEN 59 YEARS. SHE IS WEAK, WALKS VERY SLOW, ONLY ABLE TO HOUSEHOLD DISTANCES AND USES A CANE. SHE IS ABLE TO GET UP OUT OF CHAIR OR OUT OF BED BY HERSELF. CAN DRESS AND GET READY FOR BED ALONE. SHE CAN WALK TO THE BATHROOM ALONE. HE HELPS HER BATHE. HE DOES THE DRIVING, ALL OF THE SHOPPING,COOKING,CLEANING ETC. HE FIXES HER MEDICATIONS EVERY AM AND EVENING. HE SAID SHE IS GETTING FORGETTFUL AND NOT REMEMBERING THINGS. SHE IS ABLE TO BE LEFT ALONE, IF HE GIVES HER A LIST OF WHAT SHE WILL DO AND WHAT TIME AND IF HE LEAVES HER LUNCH. HE WORKS 3-4 DAYS/WEEK. HE SAID THE REASON THEY COULD NOT GET AHOLD OF HIM YESTERDAY WAS HE WAS AT WORK AND THEY CANNOT HAVE PHONES WITH THEM. HE SAID HE NOW HAS GIVEN THE NURSES HIS WORK PHONE NUMBER. PT.HAS A HX OF [facility] LAST YEAR AND HOME HEALTH AFTER THAT BUT HE CANNOT REMEMBER NAME OF AGENCY. CM WILL FOLLOW.
--- NOTE | 2018-10-19 12:20 | EKG ---
[place] [address] ELECTROCARDIOGRAM REPORT Name: SHYANNE VILLAGOMEZ Room: [address] ADM IN [facility].#: [id number] Admission: 10/17/18 Attend Phys: Vlad Lerma MD Discharge: Date of : 40 Report #: [id number] THIS REPORT FOR: //name// [facility] ED Test Date: 2018-10-17 Test Time: 12:57:33 Pat Name: SHYANNE VILLAGOMEZ Department: Room: [facility] Gender: F Managing Jeweler: : 1940 Requested By: Akil Simpson Order Number: [id number] MD: Celestine Carrillo Measurements Intervals [place] Rate: 66 P: 12 DE: 184 QRS: -17 QRSD: 95 T: 27 QT: 462 QTc: 485 Interpretive Statements Sinus rhythm Borderline left axis deviation Possible anteroseptal infarct, old Compared to ECG 08/18/2018 19:07:26 Myocardial infarct finding now present ST (T wave) deviation no longer present Electronically Signed On 10-19-2018 12:20:30 CDT by Celestine Carrillo [email or web address] <ELECTRONICALLY SIGNED> By: Celestine Carrillo MD, [facility] 10/19/18 1220 1257 1257 Celestine Carrillo MD, [facility] /EPI
[2018-10-19 14:46] LABS: BE -8.2 mmol/L (-2 to +3); PCO2 37.7 mmHg (35.0-45.0)
[2018-10-19 14:50] LABS: PO2 125.4 mmHg (75.0-100.0); pH 7.289 (7.340-7.450)
--- NOTE | 2018-10-19 17:11 | NUR ---
PATIENT SOMEWHAT PROGRESSING WELL TOWARDS GOALS. REPEAT EGD DONE TODAY, BIOPSIED ULCER, WILL WAIT FOR RESULTS. ABLE TO WEAN DOWN SOME ON DOPAMINE. POTASSIUM AND MAGNESIUM CURRENTLY BEING REPLACED. HAS BEEN HERE AND GONE HOME FOR THE NIGHT. UPDATED ON PLAN OF CARE. ABGS NOT IMPROVING. BICARB ADDED TO FLUIDS FOR ONE BAG AND THEN WILL RESUME NORMAL SALINE. HAT COPYIST IN PLACE. BED ALARM ON, BED IN LOWEST POSITION
[2018-10-19 17:54] LABS: HEMATOCRIT 23.5 % (37.0-47.0)
[2018-10-19 20:12] LABS: MAGNESIUM 2.7 mg/dL (1.8-2.4)
[2018-10-20] VITALS (44 sets, daily range): BP systolic 93–200; BP diastolic 36–79
[2018-10-20 04:39] LABS: ABSOLUTE LYMPHOCYTES 1.2 thou/uL (0.8-5.3); ABSOLUTE MONOCYTES 0.2 thou/uL (0.0-1.2); ABSOLUTE NEUTROPHILS 3.5 thou/uL (1.6-8.1); BASOPHILS 0.3 %; EOSINOPHILS 0.2 %; HEMATOCRIT 22.3 % (37.0-47.0); HEMOGLOBIN 7.8 gm/dL (12.0-15.0); LYMPHOCYTES 23.7 %; MCHC 35.2 g/dL (28.0-37.0); MCV 87.9 fL (80.0-100.0); MONOCYTES 4.7 %; MPV 7.6 fl. (7.2-11.1); NUCLEATED RBCS 0 /100WBC; PLATELET COUNT* 62 thou/uL (150-400); POLYS 71.1 %; RBC 2.53 mil/uL (4.20-5.00); RDW-CV 13.7 % (10.5-14.5); WBC 4.9 thou/uL (4.0-11.0)
[2018-10-20 05:05] LABS: ALBUMIN 1.5 g/dL (3.4-5.0); CALCIUM 6.6 mg/dL (8.5-10.1); CREATININE 0.6 mg/dL (0.6-1.3); MAGNESIUM 1.9 mg/dL (1.8-2.4); POTASSIUM 3.1 mmol/L (3.5-5.1); TOTAL BILIRUBIN 0.4 mg/dL (<0.1-1.0)
--- NOTE | 2018-10-20 08:57 | CON ---
[address] [address] CONSULTATION Name: SHYANNE VILLAGOMEZ Room: [address] IN .R.#: [id number] Admission: 10/17/18 Attend Phys: Vlad Lerma MD Discharge: Date of : 40 Report #: [id number] THIS REPORT FOR: //name// CC: Vlad Whelan MD DATE OF SERVICE: 10/18/2018 PULMONARY CONSULTATION ATTENDING PHYSICIAN: Vlad Lerma MD The patient is located in ICU bed 1. INDICATION FOR CONSULTATION: Acute respiratory failure, anemia, and dyspnea. The patient is a 78-year-old female, a recent smoker, who presented yesterday to the Emergency Room. She had near syncope and fall in the bathroom. She was initially seen on a telemetry unit up with her . She had had several falls and TIAs over the last week or two. She was hyponatremic and anemic. Hemoglobin of 6; had gone down to 3. She has had several units of blood. She had a dental extraction about 3 weeks ago; had poor intake. Although, she did quit smoking, still drinks a couple alcoholic drinks at night and the patient was still doing poorly and then had some nausea and vomiting last night. Supposedly, coughed up most of the bloody secretions. This was bright red blood with hematemesis. She was transferred down to the ICU, had an NG tube placed. Again, hemoglobin was around 6. She has had several units of blood. It dropped down to 3 and repeat hemoglobin is pending as is intubation and then stat endoscopy by Dr. Whelan in the GI Service. PAST MEDICAL HISTORY: Transient ischemic attacks, syncope, urinary tract infection, weakness, hyponatremia, and hypertension. Also, had mild hyperlipidemia and again hypertension was noted. SHE HAS ALLERGIES OR INTOLERANCE TO PENICILLIN AND SULFA, WHICH GIVES HER NAUSEA. OUTPATIENT MEDICATIONS: Included meloxicam 15 mg daily, metformin 500 mg b.i.d., simvastatin 20 mg at bedtime, lisinopril 20 mg at bedtime, atenolol 50 mg daily, hydralazine 25 mg b.i.d., gabapentin 100 mg b.i.d., aspirin was 81 mg daily; those are on hold. OTHER PAST MEDICAL HISTORY: Mild diabetes or glucose intolerance, hypertension, [place] [address] CONSULTATION Name: KODYSHYANNE GRIMES Shawn Room: [address]#: [id number] Admission: 10/17/18 Attend Phys: Vlad Lerma MD Discharge: Date of : 40 Report #: [id number] and back disease. FAMILY HISTORY: Negative for premature cardiopulmonary disease. SOCIAL HISTORY: She lives with her . She has a prior 30-91-dlgy-year history of smoking. She states she quit 2 or 3 weeks ago. Had a dental extraction 3 weeks ago and then does drink a couple alcoholic drinks, 2-4 scotch daily. A 14-review of systems was reviewed and negative except for pertinent positives as noted in the HPI. PHYSICAL EXAMINATION: GENERAL: A 78-year-old female, in [facility]. She is in respiratory distress and not oriented. VITAL SIGNS: She was hypotensive with blood going in. Blood pressure is about 80/50, heart rate is in the 80s-90s, respirations are 20-24, unlabored before intubation. Temperature is 36.9 degrees. She is 5 feet 3 inches tall. Weight is 50 kilograms or 110 pounds. BMI is 17. HEENT: She appears pale. Mucous membranes are dry. No increase in jugular venous pressure. NECK: Supple without nodes. CHEST: Shows bilateral rhonchi. No wheeze noted, somewhat labored respirations. CARDIOVASCULAR: Regular rate and rhythm without murmur, gallop, or rub. Heart rate is 96. ABDOMEN: Slightly tender, but without rebound. EXTREMITIES: Pale. No cyanosis, clubbing, or edema. She will withdraw to tactile stimuli. NEUROLOGIC: She is vaguely responsive to commands. LABORATORY DATA: Hemoglobin early this morning was 9.3, then went down to 6.1 at 7:00 a.m. and the last one was around 3.5 at about 8:00 a.m. Sodium was 138, potassium is 4.2, carbon dioxide is 25, BUN 17, creatinine 0.8, glucose is 174, and calcium is 8.0. AST and ALT are within normal limits. Albumin is 2.2. ABGs are still pending at this time. She was desaturating on 100% mask at about 88-92% and urine tox screen was negative. Alcohol was less than 10. Coags: INR was 1.3. Chest x-ray now shows ET tube in good position. Right central line in good position without any pneumothorax. Large gastric air bubble and OG tube will be placed. IMPRESSION: 1. Acute respiratory failure, aspiration syndrome, upper gastrointestinal bleed. 2. Upper gastrointestinal bleed secondary to bleeding prepyloric ulcer. 3. Anemia. [address] [place] [address] CONSULTATION Name: SHYANNE VILLAGOMEZ Room: [address]#: [id number] Admission: 10/17/18 Attend Phys: Vlad Lerma MD Discharge: Date of : 40 Report #: [id number] 4. Hypertension. 5. Possible chronic obstructive pulmonary disease and aspiration. PLAN: Chest x-ray relatively clear. We will keep on vent settings at 100% 450 and 16 and PEEP of 5. Keep her on DuoNeb treatment; she probably has underlying COPD. She will be on a Protonix drip. She will need another endoscopy on Friday. So, we will leave her intubated for a couple days. Hopefully, we will clear up her secretions and make sure she does not develop any infiltrates. No antibiotics at least at this time. This has been a 38-minute critical care consult. <ELECTRONICALLY SIGNED> By: Luisa Belle MD 10/20/18 [phone] [id number] Adorno MD /nt
[2018-10-20 13:22] LABS: BE -8.4 mmol/L (-2 to +3); PCO2 VENOUS 31.8 mmHg (41.0-51.0); PO2 VENOUS 140.7 mmHg (35.0-45.0)
--- NOTE | 2018-10-20 13:45 | NUR ---
MULTIPLE RTS UNABLE TO DRAW ABG. DR BOBBY NOTIFIED. VBG ORDERED INSTEAD. RESULTS CALLED TO DR BOBBY. PATIENT HAD BEEN ON TRIAL FOR 1.[address] OBBBY GAVE ORDERS TO EXTUBATE WITH NO FOLLOW UP BLOOD GAS. PATIENT EXTUBATED AT 1345. TOLERATING WELL. ON 4L NC WITH SAT OF 97%. NO DISTRESS NOTED. AT BEDSIDE.
[2018-10-20 17:44] LABS: HEMOGLOBIN 7.9 gm/dL (12.0-15.0)
--- NOTE | 2018-10-20 18:09 | NUR ---
PATIENT PROGRESSING WELL SINCE EXTUBATION. AOX4. DOES APPEAR TO HAVE GENERALIZED WEAKNESS. CAN MOVE ALL EXTREMITIES EQUALLY, BUT MINIMALLY. DENIED PAIN THROUGHOUT SHIFT. DENIES NAUSEA/SOA. CURRENTLY ON 2L NC WITH OW SAT 95% AND UNLABORED RESPIRATIONS. OFF DOPAMINE SINCE ENAMEL SHADER. PATIENT BPS NOW HIGH AT TIMES. PRN HYDRALAZINE HAS NOT BEEN GIVEN BLOOD PRESSURE EVENS OUT ON OWN AND PHYSICIAN WOULD LIKE TO AVOID IF POSSIBLE. NO STOOLS THIS SHIFT. NO BLEEDING NOTED OTHERWISE. ELECTROLYTES REPLACED THIS SHIFT (POTASSIUM AND PHOSPHORUS), AWAITING REDRAW. PRESENT THROUGHOUT SHIFT. UPDATED ON PLAN OF CARE. BED ALARM ON, LOCKED IN LOWEST POSITION.
[2018-10-20 19:12] LABS: CALCIUM 6.6 mg/dL (8.5-10.1); CREATININE 0.5 mg/dL (0.6-1.3); MAGNESIUM 1.8 mg/dL (1.8-2.4); POTASSIUM 4.3 mmol/L (3.5-5.1)
--- NOTE | 2018-10-20 19:45 | NUR ---
PT DENIES CONCERNS AT THIS TIME, YET GUARDING LUE. WHEN ASKED ABOUT GUARDING PT STATES LUE SORE, EDEMA NOTED AT L AC AND L FA PERIPHERAL IV SITES. BOTH IV'S DC'D AT THIS TIME. HR ELEVATED AND SUSTAINING MID-HIGH 120'S, DR YOU LATHAM. PT ELEVATED AT 200/79, PRN IVP HYDRALAZINE GIVE ORDERED WITH DECREASE IN BP TO 166/55, NO CHANGE IN HR.
--- NOTE | 2018-10-20 22:30 | NUR ---
PER DR ORTA, BEDSIDE SWALLOW EVAL PERFORMED WITH NO COUGHING OR OTHER S/S ASPIRATION NOTED. PO CARDIZEM INIATED PER DR ORTA TO ADDRESS TACHYCARDIA. PT REPORTS LUE FEELING BETTER, ENCOURAGED TO KEEP LUE ELEVATED. PT CURRENTLY DENIES PAIN, SOA, NAUSEA, AND ANY OTHER DISCOMFORT. CALL LIGHT WITHIN REACH.
[2018-10-21] VITALS (16 sets, daily range): BP systolic 104–164; BP diastolic 41–79
[2018-10-21 03:32] LABS: ABSOLUTE LYMPHOCYTES 0.9 thou/uL (0.8-5.3); ABSOLUTE MONOCYTES 0.3 thou/uL (0.0-1.2); ABSOLUTE NEUTROPHILS 4.2 thou/uL (1.6-8.1); BASOPHILS 0.7 %; EOSINOPHILS 0.2 %; HEMATOCRIT 25.1 % (37.0-47.0); HEMOGLOBIN 8.6 gm/dL (12.0-15.0); LYMPHOCYTES 16.8 %; MCH 30.3 pg (26.0-34.0); MCHC 34.1 g/dL (28.0-37.0); MCV 88.9 fL (80.0-100.0); MONOCYTES 6.2 %; MPV 7.5 fl. (7.2-11.1); NUCLEATED RBCS 0 /100WBC; PLATELET COUNT* 79 thou/uL (150-400); POLYS 76.1 %; RBC 2.82 mil/uL (4.20-5.00); RDW-CV 13.8 % (10.5-14.5); WBC 5.6 thou/uL (4.0-11.0)
[2018-10-21 03:52] LABS: ALBUMIN 1.8 g/dL (3.4-5.0); CALCIUM 7.4 mg/dL (8.5-10.1); CREATININE 0.6 mg/dL (0.6-1.3); POTASSIUM 3.9 mmol/L (3.5-5.1); TOTAL BILIRUBIN 0.5 mg/dL (<0.1-1.0); TOTAL PROTEIN 4.7 g/dL (6.4-8.2)
[2018-10-21 04:12] LABS: PHOSPHORUS* 2.2 mg/dL (2.5-4.9)
--- NOTE | 2018-10-21 07:23 | NUR ---
VSS. DESAT DURING THE NIGHT TO HIGH 80'S WHILE SLEEPING, 2L O2 PLACED PER NC AND TITRATED TO 4L TO MAINTAIN SAT >92%. TOLERATING PO MEDS WITH WATER, NO S/S ASPIRATION. PT C/O 01/14 BILATERAL CALF PAIN, NO REDNESS OR EDEMA NOTED. PRN TYLENOL GIVEN ORDERED WITH NO RELIEF. PAGED DR ORTA, AWAITING RETURN CALL. CALL LIGHT WITHIN REACH.
--- NOTE | 2018-10-21 15:07 | PATH ---
[address] [address] PATHOLOGY RPT PROCEDURE Name: SHYANNE SHUKLA Room: [address] IN .#: [id number] Admission: 10/17/18 Date of : 40 Discharge: Report #: [id number] Path Case #: [id number] [facility] Accession Number: [id number] . 01 Material submitted: . stomach - GASTRIC ULCER BIOPSY . 01 Clinical history: . None provided . 02 Diagnosis: Gastric ulcer biopsy: - Nonspecific active gastritis with ulceration, negative for Helicobacter pylori organisms, granulomas and dysplasia. (GIOVANY:bg; 10/21/2018) . Special stain: H. pylori immuno. QMS/10/21/2018 . 02 Electronically signed: . Daniel Ely MD, Pathologist NPI- [id number] . 01 Gross description: . Received in formalin labeled "Shyanne Shukla, gastric ulcer biopsy," are two fragments of levine-brown soft tissue measuring 0.1 x 0.1 x 0.1 cm and 0.3 x 0.2 x 0.1 cm in greatest dimensions. The specimen is submitted entirely in cassette A1. ([facility]; 10/20/2018) XDC/XDC . 02 Pathologist provided ICD-10: K29.70, K25.9 . 02 CPT . 336931, Q25413 Specimen Comment: A courtesy copy of this report has been sent to Specimen Comment: [phone], , . Specimen Comment: Report sent to ,DR ORTA / DR OLSON Performed at: [address], [place] [id number] MD Seth Luong MD Phone: [phone] Performed at: 02 [facility] [address], [place], [place] [id number] MD Daniel Ely MD Phone: [phone]
--- NOTE | 2018-10-21 17:40 | NUR ---
PATIENT PROGRESSING TOWARDS GOALS. UP IN CHAIR TODAY WITH MAX ASSIST OF 2-3. DOES COMPLAIN OF INTERMITTENT ACHING IN LEGS, IMPROVED WITH GABAPENTIN. PER PULMONARY, GIVEN ALBUMIN AND LASIX TOGETHER. NOW ON ROOM AIR WITH SAT OF 98%. RESTING IN BED WATCHING TELEVISION AT THIS TIME, APPEARS COMFORTABLE. BED LOCKED AND IN LOWEST POSITION.
[2018-10-22] VITALS (10 sets, daily range): BP systolic 131–173; BP diastolic 53–72
[2018-10-22 04:21] LABS: ABSOLUTE EOSINOPHILS 0.1 thou/uL (0.0-0.7); ABSOLUTE LYMPHOCYTES 1.1 thou/uL (0.8-5.3); ABSOLUTE MONOCYTES 0.3 thou/uL (0.0-1.2); ABSOLUTE NEUTROPHILS 2.6 thou/uL (1.6-8.1); BASOPHILS 0.7 %; EOSINOPHILS 2.2 %; HEMATOCRIT 22.1 % (37.0-47.0); HEMOGLOBIN 7.6 gm/dL (12.0-15.0); LYMPHOCYTES 26.8 %; MCH 30.4 pg (26.0-34.0); MCHC 34.1 g/dL (28.0-37.0); MCV 89.1 fL (80.0-100.0); MONOCYTES 6.5 %; MPV 7.5 fl. (7.2-11.1); NUCLEATED RBCS 0 /100WBC; PLATELET COUNT* 91 thou/uL (150-400); POLYS 63.8 %; RBC 2.48 mil/uL (4.20-5.00); RDW-CV 13.8 % (10.5-14.5); WBC 4.1 thou/uL (4.0-11.0)
[2018-10-22 04:33] LABS: CALCIUM 7.8 mg/dL (8.5-10.1); CREATININE 0.5 mg/dL (0.6-1.3); PHOSPHORUS* 2.4 mg/dL (2.5-4.9); TOTAL BILIRUBIN 0.6 mg/dL (<0.1-1.0); TOTAL PROTEIN 4.7 g/dL (6.4-8.2)
[2018-10-22 04:42] LABS: POTASSIUM 2.9 mmol/L (3.5-5.1)
--- NOTE | 2018-10-22 06:40 | NUR ---
VSS. PT HAS DENIES PAIN, SOA, AND ANY OTHER CONCERNS THIS SHIFT. LOW POTASSIUM AND MAGNESIUM THIS AM, REPLACING PER ELECTROLYTE PROTOCOL. PT HAS BEEN TURNED Q2HR THROUGHOUT THE NIGHT.
--- NOTE | 2018-10-22 13:56 | NUR ---
CHIEF CONTROLLER SPOKE TO THE PATIENT TO DISCUSS DISCHARGE PLANNING NEEDS AND THE PHYSICIAN'S RECOMMENDATION OF ACUTE INPATIENT REHAB WHEN MEDICALLY STABLE. PATIENT INFORMS THAT SHE HAD BEEN TO LONG TERM IN THE PAST AT [facility] AND WOULD RATHER NOT DO THAT. PATIENT INITIALLY RESISTANT TO ACUTE INPATIENT REHAB, BUT AFTER WORKING WITH THERAPIES IS NOW IN AGREEMENT. PATIENT REQUEST THAT D/C LINUX DEVOPS ENGINEER CONTACT HER SPOUSE TO DISCUSS THIS WELL. D/C LINUX DEVOPS ENGINEER CALL AND LEFT A MESSAGE FOR THE PATIENT'S SPOUSE TO RETURN CALL. CM WILL REMAIN AVAILABLE TO ASSIST AND FOLLOW NEEDED.
--- NOTE | 2018-10-22 16:34 | NUR ---
PT CARE ASSUMED AFTER REPORT. SR/ST ON MONITOR. PT INCREASINGLY MORE CONFUSED AND HALLUCINATING THROUGH OUT THE DAY. STATED THAT SHE SAW A "BROKEN BOTTLE OF SCOTCH" ON THE COUNTER AT THE NURSES STATION. ALSO ATTEMPTED TO EXIT THE BED ON HER OWN TO "GO UPSTAIRS TO THE MEETING". BED ALARM ON FOR PT SAFETY. PT VERY UNSTEADY AND NOT ABLE TO WALK WITH OUT ASSISTANCE. REFUSES TO GO TO REHAB UPON DISCHARGE. PT UP X2 ASSIST. SAT IN LOUNGE CHAIR WITH ASSISTANCE OF PT. MELANIE INFANTE DD. WILL REDRAW LABS WHEN POTASSIUM INFUSION IS COMPLETE. DENIES PAIN. PROGRESSING TOWARDS SOME GOALS.
[2018-10-22 18:40] LABS: POTASSIUM 4.7 mmol/L (3.5-5.1)
--- NOTE | 2018-10-22 20:16 | CON ---
[address] [address] CONSULTATION Name: SHYANNE VILLAGOMEZ Room: [address] IN ..#: [id number] Admission: 10/17/18 Attend Phys: Vlad Lerma MD Discharge: Date of : 40 Report #: [id number] THIS REPORT FOR: //name// CC: Vlad Sprague Carbone DATE OF SERVICE: 10/18/2018 HISTORY OF PRESENT ILLNESS: This is a pleasant 78-year-old female who is being evaluated for hematemesis and melena. The patient is currently sedated and intubated and the history has been obtained from the chart. The patient presented yesterday with near syncope and falls. The patient reported at the time of presentation that she had been having multiple episodes of dizziness and falls and possible TIAs. She denied any chest pain, shortness of breath, hematemesis, or melena at the time of presentation. Last night, the patient developed a large melenic episode followed by several episodes of hematemesis. The patient was then transferred to the ICU and intubated for airway protection. PAST MEDICAL HISTORY: Significant for hypertension, syncope, transient ischemic attack, and hyperlipidemia. PAST SURGICAL HISTORY: Nonsignificant. SOCIAL HISTORY: The patient apparently drinks 2 glasses of scotch every day and quit smoking. There is no history of recreational drug use. FAMILY HISTORY: There is no family history of colon cancer or Rucker related neoplasia. REVIEW OF SYSTEMS: Unable to obtain because of the patient's mental status. PHYSICAL EXAMINATION: GENERAL: The patient is sedated and intubated. VITAL SIGNS: Temperature 36.9, pulse rate 84, respirations 20, and blood pressure 162/93. HEENT: Dried blood is seen around the mouth. Pupils are equal, round, reactive to light and accommodation. Mucous membranes appear congested. LUNGS: Clear to auscultation bilaterally. CARDIOVASCULAR: Rate and rhythm regular. S1, S2 present. ABDOMEN: Soft. There is no significant distention, guarding or rigidity. EXTREMITIES: Warm, well perfused. There is no evidence of edema. LABORATORY DATA: Hemoglobin on presentation was 13.9, is 6.1 this morning. Sodium 138, potassium 4.2, chloride 102, bicarbonate 25, BUN 17, creatinine 0.8, total bilirubin 0.5, AST 20, ALT 9, alkaline phosphatase 53, albumin 2.2, and lipase 136. [place] [address] CONSULTATION Name: KODYSYDNEYSHYANNE Shawn Room: [address]#: [id number] Admission: 10/17/18 Attend Phys: Vlad Lerma MD Discharge: Date of : 40 Report #: [id number] ASSESSMENT AND PLAN: This is a pleasant 78-year-old female initially presenting for dizziness and presyncope, found to have hematemesis as well as melena. The GI service has been consulted for further evaluation. Maintain adequate IV access. Check hemoglobin at least twice a day. Protonix drip 80 mg bolus followed by 80 mg per hour. Octreotide drip 50 mcg followed by [address] the patient on antibiotics either ceftriaxone or ciprofloxacin for suspected variceal bleeding. Place the patient on Reglan 10 mg q. 6 hours p.r.n. We will proceed with upper gastrointestinal endoscopy today and make further recommendations based on above. About 30 minutes were spent with the patient performing physical examination, reviewing chart, and formulating a plan of care. <ELECTRONICALLY SIGNED> By: Shailesh Whelan MD 10/22/182015 [id number] Whelan MD /nt
[2018-10-23] VITALS (12 sets, daily range): BP systolic 129–166; BP diastolic 59–82
--- NOTE | 2018-10-23 00:17 | NUR ---
PT. INCONTINENT OF LARGE AMOUNT OF URINE. UP TO COMMODE X2 MAX ASSIST. PUREWICK EXTERNAL CATHETER PLACED. BED ALARM IN PLACE. WILL CONTINUE TO MONITOR.
[2018-10-23 04:31] LABS: ABSOLUTE EOSINOPHILS 0.1 thou/uL (0.0-0.7); ABSOLUTE MONOCYTES 0.4 thou/uL (0.0-1.2); BASOPHILS 0.6 %; HEMOGLOBIN 8.3 gm/dL (12.0-15.0); MCH 30.6 pg (26.0-34.0); NUCLEATED RBCS 0 /100WBC; WBC 4.6 thou/uL (4.0-11.0)
[2018-10-23 04:34] LABS: ABSOLUTE NEUTROPHILS 3.1 thou/uL (1.6-8.1); EOSINOPHILS 2.1 %; HEMATOCRIT 24.5 % (37.0-47.0); LYMPHOCYTES 21.3 %; MCHC 34.1 g/dL (28.0-37.0); MCV 89.7 fL (80.0-100.0); MONOCYTES 9.3 %; PLATELET COUNT* 131 thou/uL (150-400); POLYS 66.7 %; RBC 2.73 mil/uL (4.20-5.00); RDW-CV 13.8 % (10.5-14.5)
[2018-10-23 04:48] LABS: CALCIUM 8.4 mg/dL (8.5-10.1); CREATININE 0.5 mg/dL (0.6-1.3); MAGNESIUM 1.8 mg/dL (1.8-2.4); POTASSIUM 3.9 mmol/L (3.5-5.1)
--- NOTE | 2018-10-23 04:52 | NUR ---
PT. SOMEWHAT PROGRESSING TOWARDS GOALS. UP TO BSC X4 THIS SHIFT WITH 2 PERSON MAX ASSIST. PUREWICK REMAINS IN PLACE, DRAINING WELL. PT. HAS BEEN PLEASANTLY CONFUSED, STATING SHE NEEDS TO GO TO HER CAR, ASKING IF HER IS ON THE COUCH, ASKING HOW THE [employer] OUTSIDE ARE DOING. ORIENTED TO PERSON AND PLACE WHEN ASKED ORIENTATION QUESTIONS. SINUS RHYTHM. CALL LIGHT REMAINS IN REACH, WILL CONTINUE TO MONITOR.
--- NOTE | 2018-10-23 10:30 | NUR ---
PER [facility], THEY CAN ACCEPT PT.TODAY TO REHAB UNIT. SPOKE WITH PT.AND . THEY ARE BOTH AGREEABLE. TOLD THEM THEIR NURSE WOULD LET THEM KNOW WHAT TIME SHE WOULD TRANSFER TODAY. WOULD LIKE TO SPEAK WITH . CONTACTED BUT HE WAS ALREADY OUT OF THE BUILDING. TOLD HE CAN TALK TO ONE OF THE HOSPITALISTS TOMORROW. HE WAS OK WITH THAT.
--- NOTE | 2018-10-23 11:46 | NUR ---
Nutrition: Pt admitted with acute resp failure. Seen for LOS. H/o DJD, DM, TIA, aspiration PNA, GIB. BG ok, alb 2, prealb 11.9 - severely depleted. Ate 25-75% of meals so far. Wt: 128#. CHO controlled diet. No nutrition interventions needed at [facility]. RD available if needed. Consider mild nutrition risk for now.
[2018-10-23 11:56] LABS: HEMATOCRIT 26.9 % (37.0-47.0); HEMOGLOBIN 9.2 gm/dL (12.0-15.0)
[2018-10-23] MEDS ORDERED: AUGMENTIN 875-1 EACH PO (12:40)
[2018-10-23] MEDS ORDERED: PROTONIX40 M1 PO (12:47)
[2018-10-23] MEDS ORDERED: IPRAT-ALBUT 0.5-3 ML INH (13:02)
--- NOTE | 2018-10-23 14:37 | NUR ---
PT ALERT AND ORIENTED TO PLACE AND PERSON, ANSWERS QUESTIONS APPROPRIATELY BUT FORGETFUL AND CONFUSED AT TIMES. SHE THREW HER DENTURES IN THE DUSTBIN AFTER HER LUNCH TODAY AND ASKED HER TO FEED THE CATS IN THE ROOM. PT REORIENTED. VSS. O2 SATS >92% IN RA. ATE 50% OF HER DIET, GOOD APPETITE. PT SAT UP IN CHAIR FOR ABOUT AN HOUR WITH THE HELP OF PT, 2 PERSON ASSIST. PT INCONTINENT OF BOWEL AND BLADDER, PASSED LARGE AMOUNT OF LOOSE STOOL, BLACK COLORED TWICE THIS MORNING. REPEAT H AND H DONE, IMPROVED THAN PREVIOUS VALUES, DR MICHEL LIMON FOR HER TO GO TO REHAB UPSTAIRS.
--- NOTE | 2018-10-23 17:02 | NUR ---
REHAB REFUSED THE ADMISSION BECAUSE OF HER CONFUSION STATUS. PLANNED FOR HER TO TRANSFER IN TELE. LT WRIST IV ACCESS ESTABLISHED. REPORT GIVEN TO NAMRATA SANDOVAL, TELE.
--- NOTE | 2018-10-23 17:47 | NUR ---
pt admitted to tele floor on ra. aox4. eating diner at this time. sinus tachy on compliance monitor. vss. see chart.
[2018-10-24] VITALS: BP 156/66
[2018-10-24 04:00] VITALS: BP 155/73
--- NOTE | 2018-10-24 05:56 | NUR ---
ASSUMED PT CARE APPROX 1930. PT IS AWAKE AND ORIENTED X4 BUT FORGETFUL. VSS ON ROOM AIR. DATA WAREHOUSE CONSULTANT IN PLACE TRACING SR. ASSESSMENT DONE AND CHARTED. PT DENIES PAIN. PT REMAINED INCONTINENT THROUGH THIS SHIFT, PT KEPT DRY AND CLEAN. POSITION CHANGES AND INCONTINENCE CHECKS DONE FREQUENTLY. CALL LIGHT WITHIN REACH. HIGH FALL PRECAUTIONS IN PLACE. CLOSELY MONITORED.
[2018-10-24 08:00] VITALS: BP 166/72
[2018-10-24 13:34] VITALS: BP 132/79
[2018-10-24 17:36] VITALS: BP 160/69
[2018-10-24 20:00] VITALS: BP 152/78
[2018-10-25] VITALS: BP 136/61
[2018-10-25 04:00] VITALS: BP 156/63
--- NOTE | 2018-10-25 04:27 | NUR ---
ASSUMED PT CARE AT APPROX 1930. PT IS AWAKE AND ORIENTED X4, FORGETFUL AT TIMES. PT IS TRACING SR/ST ON TELE. PT DENIES PAIN/DISCOMFORT. ASSESSMENT DONE AND CHARTED. POSITION CHANGES DONE Q2H AND INCONTINENCE CHECKS DONE FREQUENTLY. HIGH FALL PRECAUTIONS IN PLACE. CALL LIGHT WITHIN REACH. CLOSELY MONITORED.
[2018-10-25 08:00] VITALS: BP 141/62
--- NOTE | 2018-10-25 09:50 | NUR ---
ASSUMED PT CARE . REPORT RECEIVED FROM NURSE. PT IS AOX3 FORGETFUL. TRACING SR ON RN INTERN. HEART RATE 77. VSS. PT OUT OF BED TO CHAIR WITH NURSE HELP. PT ATE BREAKFAST. PT HAS GOOD APPETITE, BUT IS WEAK ON HER LEGS. ACCUCHECK WITHIN NORMAL LIMIT. MEDICATION ADMINISTERED ORDERED. PT IV LINE IS INTACT. PT IS INCINTINENT OF BOWEL AND BLADDER AND WET HER BED. WILL CONTINUE TO MONITOR PT.
[2018-10-25 11:27] VITALS: BP 165/72
[2018-10-25 12:33] VITALS: BP 153/73
== END 2018-10-25 12:53 | DRG 208 ==
LOC: M.ERS 12:24 → M.ICU 15:05 → M.TBA-ER 15:05 → M.2W 17:29 → M.ICU 10-18 05:00 → M.2W 10-23 17:23
PROVIDERS: Emergency Medicine Emergency Medical Services; Internal Medicine Critical Care Medicine; Internal Medicine Gastroenterology; Internal Medicine Pulmonary Disease; ADMIT Internal Medicine
PROC: 5A1945Z Respiratory Ventilation, 24-96 Consecutive Hours (ICD-10-PCS; principal; 2018-10-18)
PROC: 0BH17EZ Insertion of Endotracheal Airway into Trachea, Via Natural or Artificial Opening (ICD-10-PCS; principal; 2018-10-18)
PROC: B548ZZA Ultrasonography of Superior Vena Cava, Guidance (ICD-10-PCS; principal; 2018-10-18)
PROC: 02HV33Z Insertion of Infusion Device into Superior Vena Cava, Percutaneous Approach (ICD-10-PCS; principal; 2018-10-18)
PROC: 30233N1 Transfusion of Nonautologous Red Blood Cells into Peripheral Vein, Percutaneous Approach (ICD-10-PCS; principal; 2018-10-18)
PROC: 0W3P8ZZ Control Bleeding in Gastrointestinal Tract, Via Natural or Artificial Opening Endoscopic (ICD-10-PCS; principal; 2018-10-18)
DX: J96.01 Acute respiratory failure with hypoxia (principal); J69.0 Pneumonitis due to inhalation of food and vomit; R57.8 Other shock; K25.4 Chronic or unspecified gastric ulcer with hemorrhage; G93.41 Metabolic encephalopathy; E87.1 Hypo-osmolality and hyponatremia; E87.2 Acidosis; E11.9 Type 2 diabetes mellitus without complications; E78.00 Pure hypercholesterolemia, unspecified; I10 Essential (primary) hypertension; E78.5 Hyperlipidemia, unspecified; F17.210 Nicotine dependence, cigarettes, uncomplicated; M19.90 Unspecified osteoarthritis, unspecified site; M54.30 Sciatica, unspecified side; E86.0 Dehydration; D69.6 Thrombocytopenia, unspecified; Z79.2 Long term (current) use of antibiotics; Z79.82 Long term (current) use of aspirin; Z79.84 Long term (current) use of oral hypoglycemic drugs; Z79.899 Other long term (current) drug therapy; Z88.0 Allergy status to penicillin; Z88.2 Allergy status to sulfonamides; Z86.73 Personal history of transient ischemic attack (TIA), and cerebral infarction without residual deficits

== ENCOUNTER 2018-10-23 11:15 | Inpatient (IN) | payer MEDICARE ==
[~2018-10-23] VITALS: Ht 170.2 cm; Wt 51.7 kg
[2018-10-23] MEDS ORDERED: AUGMENTIN 875-1 EACH PO (12:40)
[2018-10-23] MEDS ORDERED: PROTONIX40 M1 PO (12:47)
[2018-10-23] MEDS ORDERED: IPRAT-ALBUT 0.5-3 ML INH (13:02)
[2018-10-25 13:28] VITALS: BP 150/59
--- NOTE | 2018-10-25 13:45 | NUR ---
PT DISCHARGED TO REHAB UNIT BY BE ACCOMPAINED BY STAFF. NOTIFIED. REPORT GIVEN TO JOSÉ SANDOVAL
--- NOTE | 2018-10-25 18:39 | NUR ---
ASSUMMED CARE OF PT ON ADMISSION TO UNIT, PT ALERT AND ORIENTED, PT TRANSFERS WITH MOD ASSSIT OF 1, GB CUEING, PT TAKING FOOD AND FLUIDS, PT HAS DENTURES AND COMPLAINING SHE HAS SORES IN HER MOUTH, PT DID EAT MASHED POTATOES AND APPLESAUCE, TAKING FLUIDS, DENIES PAIN, PT INSTRUCTED IN USE OF CALL LIGHT, BUT DOES GET UP WITHOUT USING CALL LIGHT, PT INCONTINENT X2 OF LARGE AMOUNT OF URINE, PT WEARS PULL UP, ORIENTED TO ROOM, HOURLY ROUNDING COMPLETED, ASSESSMENT COMPLETE, WILL CONTINUE TO MONITOR.
[2018-10-25 19:00] VITALS: BP 159/67
--- NOTE | 2018-10-25 23:26 | NUR ---
ASSUMED CARE AT 1930. PATIENT RESTING IN BED. HERE UNTIL AROUND 2030. WEARING BRIEF, INCONTINENT OF URINE. TURNS SELF. TAKES PILLS WHOLE WITH WATER A FEW AT AT TIME. DENIES PAIN. NO S/X OF GI BLEEDING. DENTURES PLACED IN POLIDENT/WATER. CALL LITE IN REACH. BED ALARM ON. HOURLY ROUNDS CONTINUE.
[2018-10-26 05:33] LABS: HEMATOCRIT 24.6 % (37.0-47.0); HEMOGLOBIN 8.2 gm/dL (12.0-15.0); MCH 30.2 pg (26.0-34.0); MCHC 33.5 g/dL (28.0-37.0); MCV 90.4 fL (80.0-100.0); MPV 6.7 fl. (7.2-11.1); RBC 2.72 mil/uL (4.20-5.00); RDW-CV 14.2 % (10.5-14.5); WBC 4.4 thou/uL (4.0-11.0)
[2018-10-26 05:49] LABS: CALCIUM 8.4 mg/dL (8.5-10.1); CREATININE 0.7 mg/dL (0.6-1.3)
--- NOTE | 2018-10-26 06:01 | NUR ---
SLEPT ALL NIGHT. TURNS SELF. INCONTINENT OF URINE. BRIEF CHANGED BY NURSING, SKIN CARE GIVEN. NO C/O PAIN. HOURLY ROUNDS CONTINUE. BED ALARM ON. CALL LITE IN REACH.
--- NOTE | 2018-10-26 06:56 | NUR ---
K OF 3.[address] GORDON PER KAREN.
[2018-10-26 08:35] VITALS: BP 154/65
[2018-10-26 09:19] LABS: URINE BILIRUBIN NEGATIVE (Negative); URINE BLOOD NEGATIVE (Negative); URINE CLARITY CLEAR; URINE COLOR YELLOW; URINE GLUCOSE-RANDOM NEGATIVE (Negative); URINE KETONES NEGATIVE (Negative); URINE LEUKOCYTES NEGATIVE (Negative); URINE NITRITE NEGATIVE (Negative); URINE PROTEIN NEGATIVE (Negative); URINE SPECIFIC GRAVITY <= 1.005 (1.005-1.030); URINE UROBILINOGEN 0.2 E.U./dl (0.2-1.0)
--- NOTE | 2018-10-26 11:10 | NUR ---
Nutrition: Pt admitted to rehab s/p GIB, encephalopathy. Severe anemia, dehydration, aspiration PNA all noted in progress notes. CHO controlled diet, good po intake per RN notes. Wt stable 122#. Alb 2, prealb 11.9 - severely depleted protein stores. RD will order Beneprotein for added nutrition. Mild to moderate risk. Will follow weekly, 10/28/18.
--- NOTE | 2018-10-26 16:36 | NUR ---
ASSUMED CARE AT 0730. ALERT ORIENTED PLEASANT COOPERATIVE. HX OF ENCEPHALOPATHY GI BLEED. TRANSFERS WITH MIN SBA G BELT AND WALKER. NEEDS CUEING. INCONTINENT URINE IN PULLUPS AT 0800. SKIN MISA AREA REDNESS MOISTURE BARRIER APPLIED. PT. VOIDED 500CCS AT 1030 BLADDER SCAN > 999 CCS STRAIGHT CATH WAS 1000CCS PT. DENIED DISCOMFORT. DR. LEONARD REQUESTED BLADDER SCAN IN 4 HRS. BLADDER SCAN WAS 534CCS. NO VOID STRAIGHT CATH WAS 500CCS SHITAL URINE AT 1550. PT. HAS PARTICIPATED IN THERAPIES TODAY DENIES DISCOMFORT. HAD ISSUES WITH CHEWING WITH NEW DENTURES SORE GUMS DIET CHANGED TO ALTERED GROUND CHO CONTROLLED TO SEE IF IT WOULD MAKE CHEWING EASIER LESS DISCOMFORT.
--- NOTE | 2018-10-26 17:26 | NUR ---
SW met with pt to complete initial assessment, introduce self, and SW role on inpt rehab unit. Pt alert, oriented. Pt lives at home with who works 3 to 4 days per week so pt was at home alone at times. Pt is forgetful but usually independent with ADLs besides does help with bathing and IADLs. Pt has a RW and cane at home. Pt has hx of [facility]. Pt has hx of HH; unknown agency. SW to continue to follow to assist with safe dc planning.
--- NOTE | 2018-10-26 20:25 | NUR ---
RESTING QUIETLY IN BED. DENIES DISCOMFORT. GIVEN TWO CONTAINERS OF JUICE, PEANUT BUTTER AND KASHIF CRACKERS FOR 61 BLOOD GLUCOSE. TOOK MEDICATIONS WHOLE ALL AT ONCE WITH WATER.
[2018-10-26 20:41] VITALS: BP 185/76
--- NOTE | 2018-10-27 05:44 | NUR ---
RESTED QUIETLY. LAST STRAIGHT CATH COMPLETED AT 0510. PATIENT STATES HAS NO URGE TO VOID. HOURLY ROUNDING IN PROGRESS.
[2018-10-27 08:00] VITALS: BP 139/62
--- NOTE | 2018-10-27 16:46 | NUR ---
ASSUMMED CARE OF PT AT 0730, PT ALERT, FORGETFUL, IMPULSIVE, TRANSFERS WITH GB WLAKER CUEING, DOES NOT USE CALL LIGHT TO ASK FOR HELP WHEN TRANSFERRING, HAS SET ALARMS OFF THIS SHIFT, PT UNALBE TO VOID AT 0900, BLADDER SCANNED FOR 425CC AND ST CATHED FOR 400CC, UROLOGY CONSULT ORDERED, NAVARRO CATH PLACED WITH YELLOW URINE RETURNED, PT BLOOD SUGAR AT 1200 WAS 30, PT ASYMPTOMATIC, 30GM OF CARBS GIVEN, BS RECHECK, LESS THAN 29, ADDITIONAL 30 GMS GIVEN AND BLOOD GLUCOSE 114, PT THEN AT LUNCH,PHYSICIAN NOTIFIED, PT DENIES PAIN, NO STOOL THIS SHIFT, PT FATIGUED AND WANTS TO RETURN TO BED AFTER EACH THERAPY SESSION, PARTICIPATED IN ALL THERAPIES, HOURLY ROUNDING COMPLETED, ASSESSMENT COMPLETE, WILL CONTINUE TO MONITOR.
[2018-10-27 19:30] VITALS: BP 123/64; BP 138/55
--- NOTE | 2018-10-27 20:10 | NUR ---
RESTING QUIETLY IN BED. NAVARRO TO DEPENDENT DRAINAGE WITH CLEAR/YELLOW URINE. DENIES DISCOMFORT. DECLINED OFFER OF JUICE OR A SNACK. CALL LIGHT WITHIN REACH.
--- NOTE | 2018-10-28 04:53 | NUR ---
RESTED QUIETLY ALL NIGHT. NO COMPLAINTS VOICED. HOURLY ROUNDING IN PROGRESS.
[2018-10-28 08:46] VITALS: BP 146/65
--- NOTE | 2018-10-28 10:32 | NUR ---
Nutrition: reassessment. Albumin 2, prealb 11.9. +BM. Wt stable, 122#. Continue Beneprotein supplement. Appears at mild risk now. Will follow weekly on rehab unit.
--- NOTE | 2018-10-28 15:19 | NUR ---
Team conference held today. TEX and Dr Otero met with pt to review team conference summary and plan for pt to remain on rehab unit to continue therapies at least another week with team to reassess pt length of stay during team conference next Friday.
--- NOTE | 2018-10-28 16:43 | NUR ---
PT HAS PARTICIPATED WITH THERAPIES AND AMBULATES WITH GAITBELT WALKER AND MIN ASSIST OF 1. PT REPORTS HAVING NO PROBLEM WITH BM'S. NAVARRO TO DD WITH CLEAR YELLOW URINE PRESENT. PT ALERT AND ORIENTATED BUT CAN BE FORGETFULL.PT EATS IN DINNINGROOM.
[2018-10-28 19:00] VITALS: BP 143/57
--- NOTE | 2018-10-29 00:57 | NUR ---
ASSUMED CARE @ 1937-.AWAKE IN BED W/ HOB UP. @ BEDSIDE.BOTH WATCHING TV.NAVARRO CATHETER IN PLACE & DRAINING.BED ALARM PUT ON @ 1937. 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
[2018-10-29 02:32] LABS: ABSOLUTE EOSINOPHILS 0.1 thou/uL (0.0-0.7); ABSOLUTE LYMPHOCYTES 1.4 thou/uL (0.8-5.3); ABSOLUTE MONOCYTES 0.3 thou/uL (0.0-1.2); ABSOLUTE NEUTROPHILS 3.1 thou/uL (1.6-8.1); EOSINOPHILS 1.8 %; HEMATOCRIT 24.4 % (37.0-47.0); HEMOGLOBIN 8.1 gm/dL (12.0-15.0); LYMPHOCYTES 28.6 %; MCH 30.1 pg (26.0-34.0); MCHC 33.1 g/dL (28.0-37.0); MONOCYTES 6.8 %; MPV 6.4 fl. (7.2-11.1); NUCLEATED RBCS 0 /100WBC; PLATELET COUNT* 322 thou/uL (150-400); POLYS 61.8 %; RBC 2.69 mil/uL (4.20-5.00); RDW-CV 14.4 % (10.5-14.5)
[2018-10-29 02:46] LABS: CALCIUM 8.1 mg/dL (8.5-10.1); CREATININE 0.8 mg/dL (0.6-1.3); MAGNESIUM 1.2 mg/dL (1.8-2.4); PHOSPHORUS* 4.1 mg/dL (2.5-4.9); POTASSIUM 3.4 mmol/L (3.5-5.1)
--- NOTE | 2018-10-29 05:38 | NUR ---
SLEEPING SINCE 2029 & SLEPT GOOD ALL NIGHT.REFUSED HS SNACK.WEARS PULL UPS.
[2018-10-29 07:42] VITALS: BP 93/57
--- NOTE | 2018-10-29 09:00 | NUR ---
I have reviewed the documentation by YOSELIN WESLEY from 10/28/18 to 10/29/18 and I concur with it. REKHA ORTIZ
[2018-10-29 19:20] VITALS: BP 121/50
[2018-10-29 20:00] VITALS: BP 151/50
--- NOTE | 2018-10-30 01:59 | NUR ---
ASSUMED PT CARE AT APPROX 1930. PT IS AWAKE AND ORIENTED X4, FORGETFUL AT TIMES. VSS ON RROM AIR. ASSESSMENTS DONE AND CHARTED. NAVARRO CATHETER-FOR RETENTION, INTACT AND DRAINING WELL. CALL LIGHT WITHIN REACH. HIGH FALL PRECAUTIONS IN PLACE. HOURLY ROUNDING DONE. REPORT GIVEN TO ANGIE SANDOVAL FOR CONTINUITY OF CARE.
[2018-10-30 02:06] LABS: GLYCOHEMOGLOBIN (HGB A1C) 5.9 % (4.8-5.6)
--- NOTE | 2018-10-30 05:06 | NUR ---
ASSUMED CARE AT ABOUT 2300. NAVARRO TO DEPENDENT DRAINAGE WITH CLEAR/YELLOW URINE. RESTED QUIETLY ALL NIGHT. NO COMPLAINTS VOICED. HOURLY ROUNDING IN PROGRESS.
[2018-10-30 07:30] VITALS: BP 147/58
[2018-10-30 08:18] LABS: MAGNESIUM 1.5 mg/dL (1.8-2.4); POTASSIUM 4.2 mmol/L (3.5-5.1)
--- NOTE | 2018-10-30 14:44 | NUR ---
ASSUMED CARE AT 0730. ALERT ORIENTED PLEASANT COOPERATIVE. HX OF ENCEPHALOPATHY. TRANSFERS WITH SBA G BELT WALKER. AMBULATES TO THERAPIES. DENIES PAIN OR CONCERNS. APPETITE POOR AT BREAKFAST MEAL BUT ATE 50% OF LUNCH. ORDER OBTAINED FOR [employer] FOR APPETITE STIMULANT. TAKES MEDS WITHOUT DIFFICULTY. PARTICIPATING IN THERAPIES THROUGHOUT THE DAY. NAVARRO PATENT TO DD BAG SHITAL URINE. UP IN RECLINER WITH LEGS ELEVATED WHEN NOT IN THERAPIES. RESTING IN BED AFTER THERAPIES COMPLETED.
--- NOTE | 2018-10-30 15:26 | NUR ---
I have reviewed the documentation by YOSELIN WESLEY from TODAY to 10/30/18 and I concur with it. REKHA ORTIZ
[2018-10-30 20:13] VITALS: BP 132/48
--- NOTE | 2018-10-30 23:24 | NUR ---
ASSUMED CARE AT 1930. PATIENT ASSISTED TO BED AROUND 1999. UP WITH SBA, GAIT BELT, WALKER. NAVARRO TO DD. TAKES PILLS WHOLE WITH WATER. TURNS SELF. NO C/O PAIN. HOURLY ROUNDS CONTINUE. BED ALARM ON. CALL LITE IN REACH.
--- NOTE | 2018-10-31 05:28 | NUR ---
SLEPT ALL NIGHT LONG. NAVARRO DRAINING SHITAL URINE. NO C/O PAIN. TURNS SELF. HOURLY ROUNDS CONTINUE. BED ALARM ON. CALL LITE IN REACH.
[2018-10-31 07:55] VITALS: BP 128/47
[2018-10-31 19:40] VITALS: BP 113/41
--- NOTE | 2018-11-01 01:53 | NUR ---
ASSUMED CARE @ 1939-10/31-SAT.SITS IN RECLINER W/ @ BEDSIDE BOTH WATCHING TV.NAVARRO CATHETER DRAINING.BP @ .HS DOSE LISINOPRIL HELD. AT 2024-FOUND SITTING EDGE OF BED CHANGING INTO NIGHT CLOTHES.ASSISTED W/ CHANGING PANTS DUE TO NAVARRO.WEARS PULL UPS.BED ALARM PUT ON @ 2029.TURNS SELF @ NIGHT.ON HOURLY ROUNDS.
--- NOTE | 2018-11-01 05:13 | NUR ---
SLEEPING SINCE 2100 & SLEPT GOOD ALL NIGHT.REFUSED HS SNACVK.TURNS SELF @ NIGHT.
[2018-11-01 08:15] VITALS: BP 108/42
--- NOTE | 2018-11-01 17:22 | NUR ---
PATIENT UP TO CHAIR FOR MEALS THIS SHIFT. UP WITH GAIT BELT AND A WALKER. NAVARRO REMAINS DRAINING YELLOW URINE WITHOUT DIFFICULTY. NO COMPLAINTS OF PAIN. PATIENT REFUSING ANYTHING FOR CONSTIPATION.
[2018-11-01 19:40] VITALS: BP 115/32
--- NOTE | 2018-11-02 00:22 | NUR ---
ASSUMED CARE @ 1919-11/01-FRIDAY.AWAKE IN BED W/ HOB UP.NAVARRO CATHETER PATENT. BED ALARM ALREADY ON @ 1919.WEARS PULL UPS.LAST BM-10/25-FRIDAY OR 10/26-FRIDAY. REFUSED PRN MOM NOR PRN DUL SUP WHEN OFFERED @ HS.HS DOSE LISINOPRIL HELD @ HS.BP LOW-115/32.TURNS SELF @ NIGHT.PER PATIENT BM PATTERN @ HOME-BM Q 4 DAYS.DOES NOT TAKE ANY LAXATIVES BUT WILL JUST HAVE BM.ON HOURLY ROUNDS.
--- NOTE | 2018-11-02 05:20 | NUR ---
SLEEPING SINCE 1999 & SLEPT GOOD ALL NIGHT FROM 2200 TO 0500.REFUSED HS SNACK. TURNS SELF @ NIGHT.
[2018-11-02 07:45] VITALS: BP 113/57
--- NOTE | 2018-11-02 13:48 | NUR ---
ASSUMED CARE AT 0730. ALERT ORIENTED PLEASNT COOPERATIVE. HX OF ENCEPHALOPATHY. TRANSFERS WITH SBA G BELT WALKER FROM BED TO RECLINER. FEEDS SELF BREAKFAST APPETITE GOOD. TAKES MEDS WITHOUT DIFFICULTY. NAVARRO PATENT WITH SHITAL URINE TO DD BAG. DR. ROSADO UROLOG[facility] HERE ROUNDING ORDERS NOTED. PT. PARTICIPATING IN THERAPIES TO FOR MEALS. MEDICATED WITH TYLENOL FOR LEG ACHING RATES A 5 ON PAIN SCALE. PT. DID TRANSFER SELF FROM RECLINER TO BED X 1 THIS AFTERNOON. INSTRUCTED TO CALL FOR ASSISTANCE WITH TRANSFERS.
--- NOTE | 2018-11-02 16:20 | NUR ---
I have reviewed the documentation by YOSELIN WESLEY from TODAY to 11/02/18 and I concur with it. REKHA ORTIZ
[2018-11-02 19:20] VITALS: BP 116/31
--- NOTE | 2018-11-02 19:20 | NUR ---
RESTING QUIETLY IN BED. NAVARRO TO DEPENDENT DRAINAGE WITH CLEAR SHITAL URINE. DENIES DISCOMFORT. PROVIDED WITH KASHIF PHILIP. CALL LIGHT WITHIN REACH.
--- NOTE | 2018-11-03 05:18 | NUR ---
RESTED QUIETLY ALL NIGHT. NO COMPLAINTS VOICED. WILL BE DISCONTUING THE NAVARRO THE MORNING PER ORDER. HOURLY ROUNDING IN PROGRESS.
[2018-11-03 07:33] VITALS: BP 119/40
--- NOTE | 2018-11-03 10:53 | NUR ---
PT. NAVARRO WAS DISCONTINUED AT 0550 NO VOID AT 1020 A.M. BLADDER SCAN WAS 213 CCS DENIES DISCOMFORT IN BLADDER REGION AT THIS TIME. DID MEDICATE FOR LEG PAIN WITH TYLENOL 2 TABS AT THIS TIME. WILL HAVE PT. TRY TO VOID AGAIN LATER. FLUIDS ENCOURAGED.
--- NOTE | 2018-11-03 12:06 | NUR ---
SW called and spoke with pt Don in preparation for team conference tomorrow. Pt concerned for pt strength, mobility, memory and if pt will need 24/7 at dc or possibly HALF-WAY or SNF needs? Also, pt shared that he will be having open heart surgery within the next 2 months and he was asking about recommendations on when and if he should share this with pt. SW and pt plan to meet on at 10 am to review team conference summary and discuss dc planning in more details.
--- NOTE | 2018-11-03 15:11 | NUR ---
ASSUMED CARE AT 0730. ALERT ORIENTED PLEASANT COOPERATIVE. HX OF ENCEPHALOPATHY PAST RESP FAILURE HX. TRANSFERS WITH SBA G BELT WALKER AMBULATES TO DR AND WITH THERAPIES WITH G BELT AND WALKER SLOW GAIT. TRANSFERRED SELF TO BED THIS AFTERNOON FROM RECLINER INTO BED. INSTRUCTED SHE NEEDS TO ASK FOR ASSISTANCE FOR SAFETY. PT. WAS LARGELY INCONTINENT OF URINE IN SHOWER AT 1130. WENT TO DR AFTER SHOWER SO BLADDER SCAN WASNT DONE. WILL TOILET AROUND 400 AND SEE IF SHE CAN VOID. APPETITE GOOD AT BREAKFAST AND LUNCH STATES SHE IS HUNGRY. RESTING IN BED THIS AFTERNOON AFTER THERAPIES COMPLETED. BED CHAIR ALARM ON FOR PT. SAFETY AND IMPULSIVENESS.
--- NOTE | 2018-11-03 15:38 | NUR ---
I have reviewed the documentation by YOSELIN WESLEY from TODAY to 11/03/18 and I concur with it. REKHA ORTIZ
--- NOTE | 2018-11-03 16:50 | NUR ---
PT. VOIDED 200CCS IN SPECI HAT AND HAD SMALL INCONTINENCE URINE IN PULLUPS BLADDER SCAN AFTERWARD WAS ONLY 30 MLS. VOID WAS CLEAR YELLOW URINE.
[2018-11-03 19:29] VITALS: BP 171/71
--- NOTE | 2018-11-03 19:30 | NUR ---
SITTING UP IN CHAIR. CALL LIGHT WITHIN REACH. PROVIDED KASHIF CRACKERS AND PRUNE JUICE. PATIENT DOESN'T WANT TO TRY TO VOID AT THIS TIME. DENIES DISCOMFORT.
--- NOTE | 2018-11-04 05:52 | NUR ---
INCONTINENT OF URINE X 2 DURING THE NIGHT. MISA CARE GIVEN. EACH TIME GOT UP TO BEDSIDE COMMODE WITH ENCOURAGEMENT AND VOIDED MORE. PATIENT WAS VERY SLEEPY AND RELUCTANT TO GET UP TO VOID. BOTH TIMES THE URINE SPILLED ONTO PATIENT'S PANTS AND THE SECOND TIME PATIENT VOIDED ON THE FLOOR ON THE WAY TO THE BEDSIDE COMMODE. EACH TIME THE BLADDER SCAN WAS LESS THAN 250 ML SO THERE WAS NO NEED TO REINSERT THE NAVARRO. HOURLY ROUNDING IN PROGRESS.
[2018-11-04 07:00] VITALS: BP 126/44
--- NOTE | 2018-11-04 15:40 | NUR ---
TEX and Dr Otero met with pt to review team conference summary and plan for pt to remain on rehab unit to continue therapies with team to reteam on Friday with probable dc on 11/12. Pt was quiet and seemingly disappointed to stay another week, but was okay with plan. Pt reported that her constipation does not bother her. Pt flat affect; therapist report possible that pt is depressed. Pt barriers to meeting goals include lack of motivation and therapy suggest depression could be a factor in that challenge. SW to review team conference summary in more detail with pt . SW to continue to follow to assist with safe dc planning.
--- NOTE | 2018-11-04 16:24 | NUR ---
I have reviewed the documentation by YOSELIN WESLEY from TODAY to 11/04/18 and I concur with it. REKHA ORTIZ
--- NOTE | 2018-11-04 18:04 | NUR ---
AM ASSESSMENT AND VITAL SIGNS COMPLETED DOCUMENTED. PT HAS BEEN ALERT AND ORIENTED BUT HAS A FLAT AFFECT AND VERY LITTLE MOTIVATION. PT RESTS IN BED OR RECLINER BETWEEN THERAPIES. FALL PRECAUTIONS AND HOURLY ROUNDING CONTINUE.
[2018-11-04 19:38] VITALS: BP 102/31
--- NOTE | 2018-11-04 22:46 | NUR ---
ASSUMED CARE AT 1930. PATIENT ALREADY IN BED. LEFT AROUND 1999. PATIENT TURNS SELF WEARS BRIEF. TAKES PILLS WHOLE WITH WATER. NO BM FOR MANY DAYS, NEW ORDER OF MIRILAX. PATIENT REFUSED MIRILAX WHEN TOLD IT WAS A GENTLE LAXATIVE. TOOK MELATONIN AT HS. DENIES PAIN. HOURLY ROUNDS CONTINUE. BED ALARM ON. CALL LITE IN REACH.
--- NOTE | 2018-11-05 00:07 | NUR ---
ON ROUNDS, FOUND PATIENT INCONTINENT OF URINE, LARGE AMOUNT. RELUCTANT TO GET UP OUT OF BED, BUT NURSING DID ALL OF CARES OF CHANGING LINENS, PAJAMAS, BRIEF AND CHUX. [place] [facility] [place] 400 ML LT YELLOW URINE WITHOUT DIFF IN ADDITION TO INCONTINENCE. SKIN CARE GIVEN. CHANGED INTO GOWN AND DRY BRIEF. RETURNED TO BED. CALL LITE IN REACH. BED ALARM ON. HOURLY ROUNDS CONTINUE.
[2018-11-05 08:00] VITALS: BP 118/54
--- NOTE | 2018-11-05 16:09 | NUR ---
TEX met with pt this morning to discuss team conference summary in more detail and discuss safe dc planning for next . Pt in agreement with plan for pt to remain on rehab unit one more week with the possibility that pt may need more assist or even SNF if pt unable to be left alone at times. Pt/family preference would be for [facility]. If pt able to make more progress in therapies and be at prior level of functioning at dc, pt considering pt to return home with hired assistance as needed. However, pt hoping to be able to have heart surgery and recover as well; pt mentioned putting off his surgery to take care of pt if pt comes home, but if pt needs SNF, then pt plans to continue with surgery. Pt decided to inform pt of pt 's health concerns and stent already placed and future open heart surgery planned. And pt discussed with pt that pt might need SNF at dc for a while. TEX spoke with team about above info. SW to continue to follow to assist with safe dc planning.
[2018-11-05 19:25] VITALS: BP 109/36
--- NOTE | 2018-11-05 19:25 | NUR ---
RESTING QUIETLY IN BED AND WATCHING FOOTBALL ON TV. DENIES DISCOMFORT. CALL LIGHT WITHIN REACH.
--- NOTE | 2018-11-06 06:10 | NUR ---
RESTED QUIETLY. INCONTINENT DURING THE NIGHT AND THIS MORNING. MISA CARE GIVEN. MOISTURE BARRIER APPLIED TO MISA AREA. NO COMPLAINTS VOICED. HOURLY ROUNDING IN PROGRESS.
[2018-11-06 09:30] VITALS: BP 134/67
--- NOTE | 2018-11-06 15:32 | NUR ---
PATIENT ALERT X 2-3, GAVE DUCOLAX SUPP. DUE TO CONSTIPATION. NO RESULTS YET. INSTRUCTED PATIENT TO CALL WHEN SHE FEELS THE URGE. DENIES COMPLAINTS OF PAIN OR DISCOMFORT. NO SIGN OF DISTRESS.
[2018-11-06 19:51] VITALS: BP 105/30
--- NOTE | 2018-11-06 22:06 | NUR ---
ASSUMED CARE AT 1915. PATIENT RESTING IN BED. TURNS SELF. TAKES PILLS WHOLE WITH WATER. WANTED TO BE LEFT ALONE TO SLEEP. INCONTINENT OF URINE AND STOOL CONTAINED IN BRIEF. PAJAMA BOTTOM REMOVED, BRIEF REMOVED, SKIN CARE DONE, MOISTURE BARRIER APPLIED ALL BY NURSING. PATIENT ABLE TO BRIDGE UP SLIGHTLY TO ASSIST WITH PANTS/BRIEF. PATIENT HAD DENIED THAT SHE WAS WET EVEN THOUGH BRIEF WAS SOAKED AND STOOL PRESENT IN BRIEF. NO C/O PAIN. HOURLY ROUNDS CONTINUE. BED ALARM ON. CALL LITE IN REACH.
--- NOTE | 2018-11-07 01:29 | NUR ---
INCONTINENT OF LARGE AMOUNT OF URINE IN BRIEF, CHUX AND EXTENDING ONTO BED LINENS AND CLOTHING. SKIN CARE GIVEN AND DURING SKIN CARE AND LINEN/CLOTHING CHANGE PATIENT VOIDED LARGE AMOUNT INTO NEW CHUX AFTER DENYING SHE NEEDED TO VOID. SKIN CARE REPEATED, CHUX CHANGED. BRIEF LEFT OFF BECAUSE MISA AREA SLIGHTLY PINK. MOISTURE BARRIER APPLIED TO AREA. CHANGED INTO HOSPITAL GOWN.
--- NOTE | 2018-11-07 05:41 | NUR ---
SLEPT ALL NIGHT. AWAKENED TO CHECK FOR INCONTINENCE AND PROVIDING SKIN CARE. INCONTINENT THROUGH THE NIGHT REQUIRING LINEN AND CLOTHING CHANGE. TURNS SELF. NO C/O PAIN. HOURLY ROUNDS CONTINUE. BED ALARM ON. CALL LITE IN REACH.
[2018-11-07 08:00] VITALS: BP 110/37
--- NOTE | 2018-11-07 14:23 | NUR ---
ASSUMED CARE AT 0730. ALERT ORIENTED BUT FORGETFULPLEASANT COOPERATIVE. HX OF ENCEPHALOPATHY. TRANSFERS WITH SBA G BELT WALKER AND AMBULATES TO BR TO VOID. HAS VOIDED X 2 AMTS OF 200CCS SHITAL URINE AND THEN 200CCS PLUS UNMEASURED IN TOILET. WEARS PULLUPS FOR OCCASSIONAL INCONTINENCE. PARTICIPATING IN THERAPIES THROUGHOUT THE DAY. HERE VISITING THIS A.M. RESTING IN BED WHEN NOT IN THERAPIES. TAKES MEDS WITHOUT DIFFICULTY. DENIES PAIN.
[2018-11-07 19:20] VITALS: BP 107/39
--- NOTE | 2018-11-07 19:20 | NUR ---
RESTING QUIETLY IN BED WATCHING TV. SNACK PROVIDED. CALL LIGHT WITHIN REACH.
--- NOTE | 2018-11-08 05:01 | NUR ---
RESTED QUIETLY. TURNS SELF FREQUENTLY IN BED. INCONTINENT X 2 DURING THE NIGHT. MISA CARE GIVEN. MOISTURE BARRIER CREAM APPLIED. HOURLY ROUNDING IN PROGRESS.
[2018-11-08 07:45] VITALS: BP 117/43
--- NOTE | 2018-11-08 14:41 | NUR ---
ASSUMED CARE AT 0730. ALERT ORIENTED PLEASANT COOPERATIVE. HX OF ENCEPHALOPATHY FORGETFUL AT TIMES. TRANSFERS WITH SBA G BELT WALKER AND AMBULATES TO BR TO VOID BUT IS INCONTINENT IN PULLUPS ALSO LARGE AMTS. USUALLY SAYS SHE DOESNT NEED TO GO TO TOILET. VOIDING CLEAR SHITAL URINE. FEEDS SELF AND APPETITE GOOD UP TO RECLINER FOR ALL MEALS. ABLE TO DRESS SELF WITH SET UP. DOES MISA CARE AFTER INCONTINENCE CHANGED PULLUPS. USES CALL LIGHT APPROPRIATELY TODAY. DENIES PAIN OR CONCERNS.
--- NOTE | 2018-11-08 16:32 | NUR ---
VOIDED X 3 AND INCONTINENCE URINE IN PULLUPS X 3. RESTING IN BED LONG INTERVALS.
[2018-11-08 19:25] VITALS: BP 120/37
--- NOTE | 2018-11-09 00:57 | NUR ---
ASSUMED CARE @ 1911-11/08-SUN.SITS IN RECLINER W/ LE'S UP.PATIENT & BOTH WATCHING TV @ THIS TIME.CHAIR ALARM ALREADY ON @ 1911.HS DOSE LISINOPRIL HELD. BP-120/37.ASSISTED TO BED @ 2022-AFTER BRP.HOB UP.SIDERAILS X4 UP.BED ALARM PUT ON @ 2022.PULL UPS OFF @ -11/09-FRIDAY.PERINEAL AREAS RED.WASHED,DRIED WELL & MOISTURE BARRIER CREAM APPLIED @ 0000.TOWEL PLACED BETWEEN THIGHS.ON HOURLY ROUNDS.
--- NOTE | 2018-11-09 05:27 | NUR ---
SLEEPING SINCE 2300 & SLEPT GOOD ALL NIGHT.AWAKENED ONLY TO CHECK IF INC. URINE @ 0000 & 0300-11/09-FRIDAY.INC URINE BOTH TIMES @ 0000 & 0300.MISA CARE GIVEN 2X.MOISTURE BARRIER CREAM APPLIED TO RED PERINEAL AREAS 2X.URINE ACCIDENT X1.BRP X1 @ 2019-BEFORE BEDTIME.TOOK 2 PACKAGES KASHIF CRACKERS W/ 120 ML ORANGE JUICE HS SNACKS.TURNS SELF @ NIGHT.
[2018-11-09 07:42] VITALS: BP 132/55
--- NOTE | 2018-11-09 10:39 | NUR ---
TEX faxed referral for back up plan of SNF to pt/family preference of [place]. SW to continue to follow to assist with safe dc planning for 11/12. Team to reassess on Saturday 11/11. [place] ph [phone]
--- NOTE | 2018-11-09 14:08 | NUR ---
ASSUMED CARE AT 0730. ALERT ORIENTED BUT IS FORGETFUL AT TIMES. HX OF ENCEPHALOPATHY. TRANSFERS WITH SBA G BELT WALKER BUT TAKES HER TIME DOING SO NEEDS ENCOURAGED TO DO MORE FOR HERSELF. FEEDS SELF APPETITE GOOD TAKES MEDS WITHOUT DIFFICULTY. DID C/O L LEG PAIN TYLENOL GIVEN. VOIDED X 1 IN TOILET WAS INCONTINENT X 1 LARGE AMT. IN PULLUPS ALSO HAD SOME BM AND ALSO MORE BM IN TOILET. PULLUPS CHANGED PERICARE MOISTURE BARRIER APPLIED. USES CALL LIGHT APPROPRIATELY FOR ASSISTANCE. PARTICIPATED IN THERAPIES. TO FOR MEALS.
[2018-11-09 19:25] VITALS: BP 132/42
--- NOTE | 2018-11-10 00:53 | NUR ---
ASSUMED CARE @ 1919-11/09-FRIDAY.AWAKE IN BED WATCHING TV W/ .HOB UP.SIDERAILS X4 UP.BED ALARM PUT ON @ 1919.HS DOSE LISINOPRIL HELD.BP-132/42. PULL UPS OFF @ 2144.TOWEL PLACED BETWEEN THIGHS.ON HOURLY ROUNDS.
--- NOTE | 2018-11-10 05:20 | NUR ---
SLEEPING SINCE 2100 & SLEPT GOOD ALL NIGHT.TOOK ALL 2 PACKAGES KASHIF CRACKERS & 120 ML ORANGE JUICE HS SNACKS.TURNS SELF @ NIGHT.AWAKENED ONLY TO CHECK IF INC.URINE.INC URINE X3.URINE ACCIDENT X1.MISA CARE X3.MOISTURE BARRIER CREAM APPLIED TO PINK PERINEAL AREAS X3 AFTER MISA CARE.PERINEAL AREA-BETTER. PINK NOW.
--- NOTE | 2018-11-10 06:47 | NUR ---
INC.URINE 4TH TIME @ 0635.MISA CARE GIVEN.MOISTURE BARRIER CREAM APPLIED. PULL UPS PUT ON.
[2018-11-10 08:00] VITALS: BP 132/76
--- NOTE | 2018-11-10 15:56 | NUR ---
I have reviewed the documentation by YOSELIN WESLEY from 11/09/18 to 11/10/18 and I concur with it. REKHA ORTIZ
--- NOTE | 2018-11-10 16:44 | NUR ---
ASSUMMED CARE OF PT AT 0730, PT ALERT AND ORIENTED, FLAT AFFECT, TRANSFERS WITH SBA ASSIST GB WALKER MOVES SLOWLY, NEEDS SOME CUEING, AMBULATED TO DININGROOM FOR LUNCH, PT SETS OFF CHAIR ALARMS SHE WANTS TO RETURN TO BED IMMEDIATELY AFTER EACH THERAPY SESSION OR MEALS, DISCUSSED WITH PT IMPORTANCE OF STAYING IN CHAIR TO INCREASE ENDURANCE BUT PT REFUSES, PT TOILETED EVERY 2-3 HOURS, PT DENIES URGE TO VOID BUT WHEN TAKEN INTO BATHROOM DOES VOID IN 100-150 CC AMOUNTS OF DARK SHITAL URINE, BLADDER SCANNED X 1 FOR 48cc AFTER A VOID OF 150CC, HAS HAD SLIGHT AMOUNT OF INCONTINENCE IN BRIEF THIS SHIFT, PT ENCOURAGED TO INCREASE FLUID INTAKE, PT DENIES NEED FOR PAIN MEDICATION THIS SHIFT, PARTICIPATED IN ALL THERAPIES, HOURLY ROUNDING COMPLETED, ASSESSMENT COMPLETE, WILL CONTINUE TO MONITOR.
--- NOTE | 2018-11-10 16:44 | NUR ---
SW received letter from pt communicating concerns for pt dc plan and wanted to ensure pt will be able to dc to SNF; SW to follow up with [facility] to make sure of acceptance for dc ; SW to meet with pt on morning to finalize dc plans. Plan to reteam tomorrow with dc to SNF given pt needs and changes in pt plans and health as well; pt still plans to continue to work and won't be able to provide needed care in the home; pt also feels pt home not conducive to private duty, etc. SW to continue to follow.
[2018-11-10 19:26] VITALS: BP 132/56
--- NOTE | 2018-11-11 00:08 | NUR ---
ASSUMED CARE @ 1916-12/11-.AWAKE IN BED WATCHING TV W/ WHILE HOLDING HANDS.HOB UP.BED ALARM PUT ON @ 1916.HS DOSE LISINOPRIL HELD.BP- -132/56.PULL UPS OFF @ 2119.TOWEL PLACED BETWEEN THIGHS.TURNS SELF @ NIGHT. AWAKENED ONLY TO CHECK IF INC.URINE.ON HOURLY ROUNDS.
--- NOTE | 2018-11-11 05:22 | NUR ---
SLEEPING SINCE 2200 & SLEPT GOOD ALL NIGHT.TOOK ALL 2 PACKAGES KASHIF CRACKERS W/ 120 ML ORANGE JUICE HS SNACKS.INC URINE X3.MISA CARE GIVEN X3. MOISTURE BARRIER CREAM APPLIED TO PINK PERINEAL AREAS X3.URINE ACCIDENT X1.
[2018-11-11 07:50] VITALS: BP 137/48
--- NOTE | 2018-11-11 13:52 | NUR ---
TEX and Dr Otero met with pt to review team conference summary and plan for pt to dc tomorrow. Pt asked if she gets to go home tomorrow, SW explained recommendation for SNF since pt unsafe to be at home alone, pt nodded in understanding at the moment. Pt/pt preference was for [facility] SNF, TEX followed up with [facility] admissions on previous referral, Sosa in admissions accepted referral and confirmed ability to accept pt to [facility] tomorrow. SW to continue to follow to finalize safe dc plan, review with pt tomorrow at 10 am and to send dc orders, med list at time of dc and to schedule transportation. [facility] ph [phone] fax [phone]
--- NOTE | 2018-11-11 16:25 | NUR ---
PATIENT UP WITH SBA; WALKER AND GAIT BELT. THIS NURSE AND OTHER STAFF ATTEMPTED TO TAKE PATIENT TO BATHROOM EVERY 2 HOURS BUT PATIENT REFUSING MOST OF THE DAY. PATIENT STATED TO THIS NURSE "BOY YOU ARE JUST BOUND AND DETERMINED TO MAKE ME GO PEE, WELL I THINK I KNOW WHEN I HAVE TO GO OR NOT!" PATIENT INCONTINENT OF URINE IN BRIEF MULTIPLE TIMES THIS SHIFT. NO COMPLAINTS OF PAIN.
[2018-11-11 20:20] VITALS: BP 115/44
--- NOTE | 2018-11-11 20:20 | NUR ---
SITTING UP IN BED WATCHING THE [employer] GAME ON TV. WAS HERE EARLIER VISITING. DENIES DISCOMFORT. DECLINED OFFER OF A SNACK. CALL LIGHT WITHIN REACH. TOOK MEDS WHOLE ALL AT ONCE WITH WATER.
--- NOTE | 2018-11-12 05:19 | NUR ---
RESTED QUIETLY. INCONTINENT OF URINE AND A LARGE BM AT 2340. MISA CARE GIVEN. MOISTURE BARRIER APPLIED TO MISA AREA. INCONTINENT AGAIN AT 0500. MISA CARE PROVIDED AGAIN. HOURLY ROUNDING IN PROGRESS.
[2018-11-12 07:48] VITALS: BP 112/49
--- NOTE | 2018-11-12 11:45 | NUR ---
TEX met with pt and pt to finalize safe dc planning and discussed plan for pt to dc to SNF [facility] today. Pt wants to be able to dc home but was ultimately in agreement/understanding of plan. TEX recieved call from Sosa in admissions at [facility] arranging transportation for 13:00. TEX informed pt of transport time. Chart copied and nurse aware of number for report. [phone] [facility] ph. SW faxed final orders and med list to [facility] SNF for continuation of care.
[2018-11-12 12:24] VITALS: BP 112/49
--- NOTE | 2018-11-12 13:05 | NUR ---
DISCHARGE NOTE - REPORT CALLED TO BAMBI PHILLIPS RN. NO QUESTIONS. ALL BELONGINGS SENT WITH PT. CHART COPIED AND SENT.
--- NOTE | 2018-11-12 16:10 | NUR ---
I have reviewed the documentation by YOSELIN WESLEY from 11/11/18 to 11/12/18 and I concur with it. REKHA ORTIZ
== END 2018-11-12 13:05 | DRG 189 ==
LOC: M.REH 11:15
PROVIDERS: Family Medicine; Internal Medicine; ADMIT Physical Medicine & Rehabilitation
DX: J96.00 Acute respiratory failure, unspecified whether with hypoxia or hypercapnia (principal); J69.0 Pneumonitis due to inhalation of food and vomit; R57.8 Other shock; G93.41 Metabolic encephalopathy; K25.4 Chronic or unspecified gastric ulcer with hemorrhage; D62 Acute posthemorrhagic anemia; E87.1 Hypo-osmolality and hyponatremia; E87.2 Acidosis; M54.30 Sciatica, unspecified side; E11.9 Type 2 diabetes mellitus without complications; I10 Essential (primary) hypertension; E86.0 Dehydration; R53.1 Weakness; R33.9 Retention of urine, unspecified; D50.9 Iron deficiency anemia, unspecified; E83.42 Hypomagnesemia; K59.00 Constipation, unspecified; M19.90 Unspecified osteoarthritis, unspecified site; E87.6 Hypokalemia; Z91.81 History of falling; Z88.0 Allergy status to penicillin; Z88.2 Allergy status to sulfonamides; Z90.710 Acquired absence of both cervix and uterus; Z87.891 Personal history of nicotine dependence; Z79.899 Other long term (current) drug therapy; Z79.84 Long term (current) use of oral hypoglycemic drugs; Z86.73 Personal history of transient ischemic attack (TIA), and cerebral infarction without residual deficits

== ENCOUNTER 2018-12-30 11:43 | Emergency (ER) | payer MEDICARE ==
[~2018-12-30] VITALS: Ht 170.2 cm; Wt 54.8 kg
[~2018-12-30 11:43] MED LIST changes: +AUGMENTIN 875-1 EACH PO; +IPRAT-ALBUT 0.5-3 ML INH; +PROTONIX40 M1 PO
[2018-12-30] MEDS ORDERED: METFORMIN HCL500 MG PO (11:58)
[2018-12-30] MEDS ORDERED: MEGESTROL400 MG/11 PO (11:59)
[2018-12-30] MEDS ORDERED: SENNA8.6 MG PO (12:01)
[2018-12-30] MEDS ORDERED: NAMENDA 5 MG TAB5 M1 PO (12:01)
[2018-12-30 12:29] LABS: ABSOLUTE MONOCYTES 0.7 thou/uL (0.0-1.2); ABSOLUTE NEUTROPHILS 4.3 thou/uL (1.6-8.1); BASOPHILS 0.7 %; EOSINOPHILS 0.8 %; HEMATOCRIT 36.8 % (37.0-47.0); HEMOGLOBIN 12.3 gm/dL (12.0-15.0); MCH 30.5 pg (26.0-34.0); MCHC 33.3 g/dL (28.0-37.0); MCV 91.6 fL (80.0-100.0); MONOCYTES 10.8 %; MPV 7.5 fl. (7.2-11.1); NUCLEATED RBCS 0 /100WBC; PLATELET COUNT* 215 thou/uL (150-400); POLYS 70.7 %; RBC 4.02 mil/uL (4.20-5.00); RDW-CV 12.7 % (10.5-14.5); WBC 6.1 thou/uL (4.0-11.0)
[2018-12-30 12:55] LABS: ANION GAP 12 mmol/L (7-16); BUN 12 mg/dL (7-18); CALCIUM 8.4 mg/dL (8.5-10.1); CHLORIDE 105 mmol/L (98-107); CO2 23 mmol/L (21-32); CREATININE 1.1 mg/dL (0.6-1.3); GLUCOSE 158 mg/dL (70-99); SODIUM 140 mmol/L (136-145)
[2018-12-30 12:57] LABS: POTASSIUM 2.9 mmol/L (3.5-5.1)
[2018-12-30 13:06] LABS: ALBUMIN 2.7 g/dL (3.4-5.0); ALKALINE PHOSPHATASE 60 U/L (46-116); NT-PRO BRAIN NAT PEPTIDE 2683 pg/mL (<300); SGOT 17 U/L (15-37); SGPT 15 U/L (30-65); TOTAL BILIRUBIN 0.4 mg/dL (<0.1-1.0); TOTAL PROTEIN 6.2 g/dL (6.4-8.2); TROPONIN-I LEVEL <0.06 ng/mL (<0.06)
[2018-12-30 13:56] LABS: URINE BILIRUBIN NEGATIVE (Negative); URINE BLOOD NEGATIVE (Negative); URINE CLARITY SL CLOUDY; URINE COLOR YELLOW; URINE GLUCOSE-RANDOM NEGATIVE (Negative); URINE KETONES NEGATIVE (Negative); URINE LEUKOCYTES-REFLEX 1+ (Negative); URINE NITRITE-REFLEX NEGATIVE (Negative); URINE PROTEIN TRACE (Negative); URINE UROBILINOGEN 0.2 E.U./dl (0.2-1.0)
[2018-12-30 14:04] LABS: AMP/METHAMP Negative (Negative); BARBITURATES Negative (Negative); BENZODIAZEPINES Negative (Negative); COCAINE Negative (Negative); METHADONE Negative (Negative); OPIATES Negative (Negative); PCP Negative (Negative); THC Negative (Negative)
[2018-12-30 14:06] LABS: SQUAMOUS 0-3 Few /LPF (0-3)
[2018-12-30 14:07] LABS: URINE RBC 0-2 Rare /HPF (0-2); URINE WBC-REFLEX >25 Many /HPF (0-5); WBC CLUMPS Moderate (None Seen)
[2018-12-30 14:08] LABS: BACTERIA-REFLEX >30 Many /HPF (None Seen); CRYSTALS None Seen /LPF (None Seen); HYALINE CASTS 4-10 Moderate /LPF (None Seen); MUCUS >6 Heavy strn/LPF (None Seen)
[2018-12-30] MEDS ORDERED: KEFLEX500 M1 PO (14:29)
--- NOTE | 2018-12-30 15:13 | EKG ---
[place] [address] ELECTROCARDIOGRAM REPORT Name: SHYANNE VILLAGOMEZ Room: 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1940 Requested By: Tanja Buckner Order Number: [id number] MD: Jose Stephenson Measurements Intervals [place] Rate: 70 P: 33 VT: 161 QRS: -2 QRSD: 95 T: 28 QT: 458 QTc: 495 Interpretive Statements Sinus rhythm Atrial premature complex Borderline prolonged QT interval Compared to ECG 10/17/2018 12:57:33 Atrial premature complex(es) now present Myocardial infarct finding no longer present Electronically Signed On 12-30-2018 15:12:56 CDT by Jose Stephenson [email or web address] <ELECTRONICALLY SIGNED> By: Jose Stephenson MD, [facility] 12/30/18 1512 1152 1152 Jose Stephenson MD, [facility] /EPI
[2018-12-30 16:17] VITALS: BP 108/45
== END 2018-12-30 16:16 | disposition home or self-care (01) ==
LOC: M.ERS 11:43
PROVIDERS: Personal Emergency Response Attendant
DX: N39.0 Urinary tract infection, site not specified (principal); R55 Syncope and collapse; E11.9 Type 2 diabetes mellitus without complications; I10 Essential (primary) hypertension; E78.00 Pure hypercholesterolemia, unspecified; E78.5 Hyperlipidemia, unspecified; J44.9 Chronic obstructive pulmonary disease, unspecified; M19.90 Unspecified osteoarthritis, unspecified site; F41.9 Anxiety disorder, unspecified; Z86.2 Personal history of diseases of the blood and blood-forming organs and certain disorders involving the immune mechanism; Z86.73 Personal history of transient ischemic attack (TIA), and cerebral infarction without residual deficits; Z87.440 Personal history of urinary (tract) infections; Z88.0 Allergy status to penicillin; Z88.2 Allergy status to sulfonamides; Z87.891 Personal history of nicotine dependence

== ENCOUNTER 2019-07-05 00:14 | Inpatient (IN) | payer MEDICARE, MEDICAID ==
[~2019-07-05] VITALS: Ht 170.2 cm; Wt 64.2 kg
[2019-07-05] VITALS (8 sets, daily range): BP systolic 115–140; BP diastolic 31–74
[~2019-07-05 00:14] MED LIST changes: +KEFLEX500 M1 PO; +MEGESTROL400 MG/11 PO; +METFORMIN HCL500 MG PO; +NAMENDA 5 MG TAB5 M1 PO; +SENNA8.6 MG PO
[2019-07-05] MEDS ORDERED: CENTRUM SILVER1 EACH PO (00:35)
[2019-07-05] MEDS ORDERED: CLARITIN10 M3 PO (00:36)
[2019-07-05] MEDS ORDERED: FLOMAX0.4 MG PO (00:36)
[2019-07-05] MEDS ORDERED: DULCOLAX10 MG RECTAL (00:36)
[2019-07-05] MEDS ORDERED: IRON325 PO (00:37)
[2019-07-05] MEDS ORDERED: HYDROCODON-ACE1 EAC7 PO (00:37)
[2019-07-05] MEDS ORDERED: MELATONIN5 MG PO (00:38)
[2019-07-05] MEDS ORDERED: KLOR-CON 1010 MEQ PO (00:38)
[2019-07-05] MEDS ORDERED: MILK OF MA400 MG/5 M PO (00:38)
[2019-07-05] MEDS ORDERED: TENORMIN25 MG PO (00:39)
[2019-07-05] MEDS ORDERED: ASPIRIN325 PO (00:40)
[2019-07-05] MEDS ORDERED: HUMALOG100 UNIT/1 SUBQ (00:40)
[2019-07-05] MEDS ORDERED: ENOXAPARIN40 MG/0.1 SUBQ (00:41)
[2019-07-05] MEDS ORDERED: MIRALAX119 GM PO (00:41)
[2019-07-05] MEDS ORDERED: NEURONTIN100 MG PO (00:41)
[2019-07-05 01:15] LABS: HEMATOCRIT 32.4 % (37.0-47.0); HEMOGLOBIN 10.6 gm/dL (12.0-15.0); MCHC 32.9 g/dL (28.0-37.0); MCV 88.1 fL (80.0-100.0); MPV 7.2 fl. (7.2-11.1); NUCLEATED RBCS 0 /100WBC; PLATELET COUNT* 386 thou/uL (150-400); RBC 3.67 mil/uL (4.20-5.00); RDW-CV 12.4 % (10.5-14.5); WBC 12.5 thou/uL (4.0-11.0)
[2019-07-05 01:36] LABS: URINE BLOOD NEGATIVE (Negative); URINE CLARITY CLEAR; URINE COLOR YELLOW; URINE GLUCOSE-RANDOM NEGATIVE (Negative); URINE KETONES 1+ (Negative); URINE LEUKOCYTES-REFLEX TRACE (Negative); URINE NITRITE-REFLEX NEGATIVE (Negative); URINE PROTEIN NEGATIVE (Negative)
[2019-07-05 01:36] LABS: CALCIUM 8.5 mg/dL (8.5-10.1); POTASSIUM 5.2 mmol/L (3.5-5.1)
[2019-07-05 01:37] LABS: URINE BILIRUBIN 1+ (Negative)
[2019-07-05 01:38] LABS: APTT 32.9 Seconds (25.0-31.3); INR 1.1
[2019-07-05 01:39] LABS: ICTOTEST (BILI CONFIRMATORY) Negative (Negative)
[2019-07-05 01:51] LABS: ALBUMIN 2.2 g/dL (3.4-5.0); CK-MB MASS 1.9 ng/mL (<0.5-3.6); TOTAL BILIRUBIN 0.6 mg/dL (<0.1-1.0); TOTAL PROTEIN 6.8 g/dL (6.4-8.2)
[2019-07-05 01:51] LABS: MUCUS 0-3 Light strn/LPF (None Seen); SQUAMOUS 0-3 Few /LPF (0-3)
[2019-07-05 01:52] LABS: BACTERIA-REFLEX >30 Many /HPF (None Seen); CRYSTALS None Seen /LPF (None Seen); HYALINE CASTS 4-10 Moderate /LPF (None Seen); URINE RBC None Seen /HPF (0-2); URINE WBC-REFLEX 6-15 Few /HPF (0-5)
[2019-07-05 02:32] LABS: ABSOLUTE LYMPHOCYTES 0.6 thou/uL (0.8-5.3); ABSOLUTE NEUTROPHILS 10.9 thou/uL (1.6-8.1); ATYPICAL LYMPHS 1 %
[2019-07-05 02:33] LABS: PLATELET ESTIMATE ADEQUATE
--- NOTE | 2019-07-05 02:39 | NUR ---
[facility] NOTIFIED OF HOSPITAL ADMISSION
[2019-07-05] MEDS ORDERED: ACETAMINOPHEN325 MG PO (04:14)
[2019-07-05] MEDS ORDERED: ZOCOR 20 MG TAB20 M1 PO (04:15)
--- NOTE | 2019-07-05 05:58 | NUR ---
RECEIVED REPORT FROM HELEN SANDOVAL. PT TRANSFERRED TO RM 200. PT A&0X1. CONFUSED. VSS. PHYSICAL ASSESSMENT COMPLETED AND CHARTED. PT ON RA. PT TRACING SR ON TELE. PT DENIED ANY PAIN. PT WITH NAVARRO TO DEPENDENT DRAIN. PT WITH BILATERAL GROIN INCISION-DRESSING CHANGED. FALL PRECAUTIONS IN PLACE. CALL LIGHT WITHIN REACH.
--- NOTE | 2019-07-05 10:34 | EKG ---
[place] [address] ELECTROCARDIOGRAM REPORT Name: SHYANNE VILLAGOMEZ Room: [address] ADM IN [facility]#: [id number] Admission: 07/05/19 Attend Phys: Bryant Woodard Discharge: Date of : 40 Date of Service: 07/05/19 0025 Report #: [id number] THIS REPORT FOR: //name// [facility] ED Test Date: 2019-07-05 Test Time: 00:25:41 Pat Name: SHYANNE VILLAGOMEZ Department: Room: [facility] Gender: F Living Advisor: : 1940 Requested By: Adán Garner Order Number: [id number] MD: Jose Stephenson Measurements Intervals [place] Rate: 82 P: 0 NV: 53 QRS: -2 QRSD: 94 T: 21 QT: 390 QTc: 456 Interpretive Statements Sinus rhythm Short NV interval Compared to ECG 12/30/2018 11:52:06 no change Electronically Signed On 07-05-2019 10:32:56 CDT by Jose Stephenson [email or web address] <ELECTRONICALLY SIGNED> By: Jose Stephenson MD, FACC 07/05/19 1032 0025 0025 Jose Stephenson MD, FAC /EPI
--- NOTE | 2019-07-05 11:18 | NUR ---
ASSUMED CARE OF PT AT 0730. PT RESTING IN BED. A&0X1, FORGETFUL AND CONFUSED. ORIENTED TO SELF ONLY. SEPSIS SCREENING-NEGATIVE. TRACING SR ON THE TUG CAPTAIN. ON RA SAT 98%. PT DENIES ANY PAIN OR SHORTNESS OF BREATH AT THIS TIME, FAINT PEDAL PULSES NOTED TO BILATERAL LE'S. PT INCONT OF BOWEL THIS AM. NAVARRO TO DEPENDENT DRAINAGE WITH YELLOW URINE. IVF. PT RECEIVING ROCEPHIN FOR UTI. PT GOAL FOR TODAY IS BE SEEN BY WOUND CARE TO LLE, MONITOR ORIENTATION, IVF AND MAINTAIN BLOOD GLUCOSE GREATER THAN 100. AM ASSESSMENT CHARTED. MEDICATIONS PER JUN .PT REPOSITIONED EVERY 2 HOURS FOR COMFORT. HOURLY ROUNDING OBSERVED. BED IN LOW POSITION. BED ALARM IN PLACE. FALL PRECAUTIONS IN PLACE. CALL LIGHT WITHIN REACH. WILL CONTINUE PLAN OF CARE.
--- NOTE | 2019-07-05 11:51 | NUR ---
SW completed initial assessment via chart review, previous record, and speaking with pt spouse, Ibrahima. Pt was home with and in December of 2018 moved into LTC at [facility]. Pt had hx of SNF at [facility], ARU at [facility] and hx of HH. Pt has RW and a cane. Pt explained that pt was recently at [place] for surgery, 2 stents placed. Plan for pt to be able to return home to [facility] LTC at dc. SW to continue to follow to assist with safe dc planning.
--- NOTE | 2019-07-05 17:10 | NUR ---
NO ACUTE CHANGES THROUGHOUT SHIFT. REFER TO CHARTING. PT BLOOD GLUCOSE STABLE THROUGHOUT SHIFT. PT SON CALLED THIS AFTERNOON AND UPDATED ON CURRENT PLAN OF CARE. PT SON BROUGHT PT GLASSES. PT DENIES ANY PAIN OR SHORTNESS OF BREATH THIS AFTERNOON. CONTINUES TO TRACE SR ON THE AUTISM SPECIALIST. ON RA SAT UPPER 90'S. NAVARRO TO DEPENDENT DRAINAGE. IVF. PT INCONT OF BOWEL TODAY. WOUND CARE STILL TO SEE PT. CONSULT CALLED. PT CONTINUES TO BE A&5T6-GNDY ONLY. IMPULSIVE AT TIMES. MEDICATIONS PER JUN. PT REPOSITIONED EVERY 2 HOURS FOR COMFORT. HOURLY ROUNDING OBSERVED. BED IN LOW POSITION. BED ALARM IN PLACE. FALL PRECAUTIONS IN PLACE. CALL LIGHT WITHIN REACH. WILL CONTINUE PLAN OF CARE.
[2019-07-06 04:07] VITALS: BP 149/50
[2019-07-06 04:15] LABS: HEMATOCRIT 24.9 % (37.0-47.0); MCH 30.1 pg (26.0-34.0); MCHC 34.6 g/dL (28.0-37.0); MCV 86.8 fL (80.0-100.0); MPV 6.4 fl. (7.2-11.1); RBC 2.86 mil/uL (4.20-5.00); RDW-CV 12.5 % (10.5-14.5); WBC 6.2 thou/uL (4.0-11.0)
[2019-07-06 04:19] LABS: HEMOGLOBIN 8.6 gm/dL (12.0-15.0)
[2019-07-06 04:41] LABS: ALBUMIN 1.6 g/dL (3.4-5.0); CALCIUM 8.2 mg/dL (8.5-10.1); MAGNESIUM 1.2 mg/dL (1.8-2.4); PHOSPHORUS* 2.6 mg/dL (2.5-4.9); POTASSIUM 3.5 mmol/L (3.5-5.1)
[2019-07-06 04:42] LABS: CREATININE 0.9 mg/dL (0.6-1.3)
--- NOTE | 2019-07-06 06:39 | NUR ---
PT IS ABLE TO COMMUNICATE HER NEEDS TO STAFF WITH SOME DIFFICULTY; SHE IS A+OX1 AND CONFUSED. CURRENT PAIN MEDICATION REGIMEN HAS BEEN ADEQUATE FOR CONTROLLING HER PAIN UP TO THIS TIME. PODIATRY MD CONSULTED FOR TODAY. NAVARRO HAS BEEN PATENT UP TO THIS TIME.
[2019-07-06 07:50] VITALS: BP 148/58
--- NOTE | 2019-07-06 08:35 | NUR ---
ASSUMED CARE OF PT AT 0730. PT RESTING IN BED. A&1H4-KVJF ONLY. CONFUSED AND FORGETFUL. UPON ASSESSMENT, PT HAD NAVARRO CATHETER STAT LOCK IN HAND- NEW STAT LOCK PLACED AND IV WRAPPED WITH PROTECTIVE WRAP. TRACING SR ON THE RESIDENT CARE ASSISTANT. FAINT PEDAL PULSES NOTED TO BILATERAL FEET. ON RA SAT UPPER 90'S. PT DENIES ANY SHORTNESS OF BREATH. NAVARRO TO DEPENDENT DRAINAGE. IVF. PT GOAL FOR TODAY IS BE SEEN BY WOUND CARE AND PODIATRY, REPLACE MAG PER ELECTROLYTE PROTOCOL AND PAIN MGMT. AM ASSESSMENT CHARTED. MEDICATIONS PER JUN. PT REPOSITIONED EVERY 2 HOURS FOR COMFORT. HOURLY ROUNDING OBSERVED. BED IN LOW POSITION. BED ALARM IN PLACE. FALL PRECAUTIONS IN PLACE. CALL LIGHT WITHIN REACH. WILL CONTINUE PLAN OF CARE.
[2019-07-06 12:10] VITALS: BP 142/60
[2019-07-06 16:06] VITALS: BP 148/89
--- NOTE | 2019-07-06 18:26 | NUR ---
NO ACUTE CHANGES THROUGHOUT SHIFT. REFER TO CHARTING. MAGNESIUM REPLACED PER ELECTROLYTE PROTOCOL. REFER TO EMAR. WOUND CARE AND PODIATRY CONSULT PENDING. FATUMA ADDED TO MEALS. PT COMPLAINED OF PAIN TO FEET THIS AFTERNOON-TREATED WITH PRN NORCO WITH PARTIAL RELIEF. NAVARRO TO DEPENDENT DRAINAGE WITH CLEAR YELLOW URINE-GOOD URINE OUTPUT. CONTINUES TO TRACE SR ON THE VACUUM CLOSING MACHINE OPERATOR. ON RA SAT UPPER 90'S. DENIES ANY SHORTNESS OF BREATH. CONTINUES TO BE A&0X1. MEDICATIONS PER MAR. PT REPOSITIONED EVERY 2 HOURS FOR COMFORT. HOURLY ROUNDING OBSERVED. BED IN LOW POSITION. BED ALARM IN PLACE. FALL PRECAUTIONS IN PLACE. CALL LIGHT WITHIN REACH. WILL CONTINUE PLAN OF CARE.
[2019-07-06 20:00] VITALS: BP 138/60
[2019-07-07] VITALS (7 sets, daily range): BP systolic 124–150; BP diastolic 48–72
--- NOTE | 2019-07-07 00:38 | NUR ---
PT ALERT TO SELF AND PLACE. COOPERATIVE. L FT WITH GREAT AND 5TH TOE NECROSIS. ANKLE AND LOWER CALF RED WITH MILD EDEMA. HYDROCODONE GIVEN. PT RATED PAIN AT 10/10. TURNING Q 2 HRS. TELEMETRY SHOWS SR. NAVARRO WITH CLEAR YELLOW. WCTM.
--- NOTE | 2019-07-07 09:18 | NUR ---
ASSUMED CARE OF PT AT 0730. PT RESTING IN BED WAITING FOR BREAKFAST. A&1W3-AKBK ONLY, CONFUSED AND FORGETFUL. TRACING SR ON THE ORCHESTRA LEADER. FAINT PEDAL PULSES NOTED. ON RA SAT UPPER 90'S, DENIES ANY SHORTNESS OF BREATH OR PAIN AT THIS TIME. PT UP WITH 1-2 ASSIST-WEAKNESS NOTED. NAVARRO TO DEPENDENT DRAINAGE. IVF. PT RECEIVING IV ANTIBIOTICS FOR UTI. URINE CULTURE PENDING RESULTS. PT GOAL FOR TODAY IS WORK WITH PT AND OT, WOUND CARE CONSULT AND INCREASE ACTIVITY. AM ASSESSMENT CHARTED. MEDICATIONS PER JUN. PT REPOSITIONED EVERY 2 HOURS FOR COMFORT. HOURLY ROUNDING OBSERVED. BED IN LOW POSITION. BED ALARM IN PLACE. FALL PRECAUTIONS IN PLACE. CALL LIGHT WITHIN REACH. WILL CONTINUE PLAN OF CARE.
--- NOTE | 2019-07-07 10:14 | NUR ---
WOUND NURSE: PATIENT SEEN TO ADDRESS TWO NECROTIC TOES ON THE LEFT FOOT: GREAT TOE MEASURES 3.7 X 3.0 CM CONTAINS STABLE BLACKENED ESCHAR, NO DRAINAGE, LOCALIZED REDNESS; 1 TO 2 PLUS PITTING EDEMA. 5TH TOE STABLE ESCHAR MEASURING 1.5 X 1.5 CM CONTAINS STABLE BLACKENED ESCHAR, NO DRAINAGE, NO LOCALIZED REDNESS. ABLE TO DOPPER BILATERAL DORSALIS PEDAL PULSE AND RIGHT POSTERIOR TIBIAL. UNABLE TO DOPPER THE LEFT POSTERIOR TIBIAL. PATIENT WAS SEEN BY DR. CAMILLA DPM AND HE APPROVED VASCULAR CONSULT. ALSO RECOMMENDED KEEPING TOES CLEAN AND DRY. WILL CONTINUE WITH HIS RECOMMENDATION.
--- NOTE | 2019-07-07 13:45 | CON ---
[address] [address] CONSULTATION Name: SHYANNE VILLAGOMEZ Room: [address] IN [facility].#: [id number] Admission: 07/05/19 Attend Phys: Marietta Sheppard Discharge: Date of : 40 Report #: [id number] THIS REPORT FOR: //name// cc: Sina Chung MD, James MD ~ THIS REPORT FOR: //name// CC: Sina Woodard DATE OF SERVICE: 07/06/2019 HOSPITAL ADMISSION: Mental altered status. HISTORY OF PRESENT ILLNESS: A 78-year-old female admitted for acute mental status change. She had recent bilateral femoral-popliteal bypass performed at [facility] on 06/29/2019. She currently has dry gangrene to the left distal lateral hallux and left distal fifth toe. She relates pain to the left distal foot, she is a poor historian. PAST MEDICAL HISTORY: Significant for TIA, type 2 diabetes mellitus, UTI, hypertension, sepsis, debility. She is on parenteral vancomycin. Blood cultures pending x 2. LABORATORY DATA: WBC 6.2, RBC 2.86, hemoglobin 8.6, hematocrit 24.9, platelets 289. BUN 10, creatinine 0.9, glucose 108. Albumin 1.6. PHYSICAL EXAMINATION: Dry eschar to the left distal lateral hallux and left distal fifth toe. There is no drainage or culturable material. No other lesions noted to either extremity. Her lower extremities are swollen with +2 pitting edema to the left and +1 to the right. The feet are warm to the touch with no pallor or cyanosis. There is immediate digital capillary refill to the left hallux near the adjacent eschar. No popliteal adenopathy or tenderness. No calf pain bilaterally. Toenails are dystrophic without paronychia. IMPRESSION: Dry gangrene, left distal hallux and fifth toe. PLAN: I do not recommend debridement of the lesions given her peripheral artery disease. Recommend keeping the toes dry and clean and covered with a clean dry sock. I will discuss with Vascular Surgery nurse if any inpatient vascular followup is warranted. <ELECTRONICALLY SIGNED> By: Barrie Nails DPM 07/07/19 1345 1737 1930Barrie Nails DPM /nt
--- NOTE | 2019-07-07 17:28 | NUR ---
NO ACUTE CHANGES THROUGHOUT SHIFT. REFER TO CHARTING, PT SEEN BY WOUND CARE- PER PODIATRY- KEEP TOES DRY AND CLEAN, COVER WITH DRY SOCK. VASCULAR CONSULT PLACED. PT WORKED WITH PT AND OT TODAY- TOLERATED FAIR. NAVARRO TO DEPENDENT DRAINAGE. INCONT OF BOWEL. APPETITE GOOD. CONTINUES TO BE A&3U4-LZZPRSURI AND CONFUSED. , DON, CALLED MULTIPLE TIMES THROUGHOUT SHIFT AND UPDATED ON CURRENT PLAN OF CARE. MEDICATIONS PER JUN. PT REPOSITIONED EVERY 2 HOURS FOR COMFORT. HOURLY ROUNDING OBSERVED. BED IN LOW POSITION. BED ALARM IN PLACE. FALL PRECAUTIONS IN PLACE. CALL LIGHT WITHIN REACH. WILL CONTINUE PLAN OF CARE.
--- NOTE | 2019-07-08 02:56 | NUR ---
PT ALERT OREINTED TO SELF AND PLACE. PAIN MEDICATION GIVEN HS WITH MELATONIN. PT RESTING QUIETLY. TELEMETRY SHOWS SR. WCTM
[2019-07-08 04:00] VITALS: BP 150/59
[2019-07-08 08:00] VITALS: BP 177/77
[2019-07-08] MEDS ORDERED: MACROBID 100 M100 MG PO (10:10)
[2019-07-08 11:05] VITALS: BP 177/77
--- NOTE | 2019-07-08 11:41 | CON ---
[address] [address] CONSULTATION Name: SHYANNE VILLAGOMEZ Room: [address] IN .R.#: [id number] Admission: 07/05/19 Attend Phys: Marietta Sheppard Discharge: Date of : 40 Report #: [id number] THIS REPORT FOR: //name// cc: Sina Chung MD, James MD ~ THIS REPORT FOR: //name// CC: Sina Woodard DATE OF SERVICE: 07/07/2019 VASCULAR SURGERY CONSULTATION REQUESTING PHYSICIAN: Bryant Woodard D.O. REASON FOR CONSULTATION: Peripheral arterial disease. HISTORY OF PRESENT ILLNESS: The patient is known to me as an outpatient. She is a vasculopath. I have been working up her lower extremity arterial insufficiency as an outpatient when she presented to the [facility] with worsening tissue loss of her left leg. She was admitted and the vascular surgeons at that facility performed bilateral common femoral endarterectomies with iliac intervention. I do not have any more details at this time. This was done a week ago. She was released to rehabilitation few days ago. She was admitted to the hospital here with UTI and altered mental status. She has been complaining of left foot pain. REVIEW OF SYSTEMS: A 12-point review of systems was reviewed and negative as per HPI. PAST MEDICAL HISTORY: Significant for altered mental status, hypertension, hyponatremia, sepsis, syncope, TIA, toe fracture, urinary tract infection, and weakness. ALLERGIES: Include PENICILLIN and SULFA. HOME MEDICATIONS: Include lisinopril, Protonix, Neurontin, Namenda, senna, Centrum Silver, Claritin, Dulcolax, Flomax, [place], iron, Klor-Con, melatonin, magnesium hydroxide, Humalog, aspirin, Lovenox, MiraLAX, Neurontin, Tylenol, and Zocor. SOCIAL HISTORY: A former smoker. She denies alcohol or drug use. PHYSICAL EXAMINATION: GENERAL: The patient in no acute distress. [place] [address] CONSULTATION Name: SHYANNE VILLAGOMEZ Room: [address] IN [facility]#: [id number] Admission: 07/05/19 Attend Phys: Marietta Sheppard Discharge: Date of : 40 Report #: [id number] VITAL SIGNS: Afebrile. Vital signs stable. HEENT: Normocephalic, atraumatic. NECK: Supple. HEART: Regular. LUNGS: Clear. ABDOMEN: Soft. EXTREMITIES: Warm, well perfused. I had difficulty feeling peripheral pulses, but she has some significant edema, especially on the left. Her feet are pink and warm. She has demarcating left first toe with necrotic areas. No acute infection. NEUROLOGIC: Grossly intact. ASSESSMENT: Status post revascularization bilateral lower extremities at the outside facility with outside surgeons. PLAN: We will obtain arterial duplex with ABIs to further assess revascularization success. I do think that she has more than adequate blood flow at this time. I suspect she is likely having reperfusion pain. Thank you very much for involving me in the care of this very pleasant patient. Please feel free to call me with any questions or concerns with assessment and plan. <ELECTRONICALLY SIGNED> By: Phil Najera DO 07/08/19 1141 1731 [id number] Sow MD /nt
--- NOTE | 2019-07-08 11:48 | NUR ---
FAXED [facility] THE DISCHARGE ORDERS, SUMMARY, THERAPY NOTES, LABS AND MEDICATION LIST. CONFIRMED WITH [facility]ELAINE/YADY THAT THEY WILL INTITIALLY ACCEPT PATIENT FOR NURSING HOME AND THEN RESUME HER SALES TRAINING COORDINATOR CARE STATUS RESIDENCE AFTER REHAB. FACILITY MADE ARRANGEMENTS TO CHANNEL REBUILDER PATIENT BY WHEELCHAIR VAN AT 16:30. NOTIFIED NURSING UNIT REGARDING DISCHARGE AND TIME. CHART COPY REQUESTED. CONTACTED GABRIELA VILLAGOMEZ (SPOUSE) AT [phone] REGARDING DISCHARGE ARRANAGEMENTS. HE WAS VERY PLEASED WITH THE CARE AND COMMUNICATION PATIENT RECEIVED WHILE SPOUSE WAS IN THE HOSPITAL.
--- NOTE | 2019-07-08 17:12 | NUR ---
RECEIVED REPORT FROM KEREN RN. ASSUMED CARE OF PT AROUND 0730. PT A&O TO SELFAND "HOSPITLA", FORGETFUL AND CONFUSED. AM ASSESSMENT AND VITALS COMPLETED CHARTED. MEDS PER EMAR. PT REPORTED PAIN TO LEFT FOOT THAT WAS TREATED WITH PO PAIN MEDICAITON WITH RELIEF. PT TOLERATING DIET. PT WORKED WITH P.T. - TOLERATED FAIR. ORDER RECEIVED TO DC NAVARRO - REMOVED. VASCULAR CHANGED BILATERAL FEMORAL DRESSINGS AT BEDSIDE THIS AM, AND PAINTED LEFT GREAT AND 5TH TOES WITH BETADINE AND SECURED WITH GAUZE. DISCHARGE ORDERS RECEIVED. DISCHARGE COMPLETED DOCUMENTED. DISCHAGE SUMMARY PLACED IN PACKET FOR FACILITY. REPORT CALLED TO OK AT [facility]. IV AND SILK CONDITIONER REMOVED. PT LEFT UNIT IN WHEELCHAIR WITH TRANSPORTER. PT LEFT HOSPITAL IN WHEELCHAIR VAN. KEELEY CALLED WITH UPDATE AT 1710.
== END 2019-07-08 17:18 | DRG 871 ==
LOC: M.ERS 00:14 → M.2W 02:14 → M.TBA-ER 02:14 → M.2W 03:25
PROVIDERS: Family Medicine; ADMIT Internal Medicine
DX: A41.9 Sepsis, unspecified organism (principal); G93.41 Metabolic encephalopathy; E43 Unspecified severe protein-calorie malnutrition; E11.52 Type 2 diabetes mellitus with diabetic peripheral angiopathy with gangrene; N39.0 Urinary tract infection, site not specified; I10 Essential (primary) hypertension; M54.30 Sciatica, unspecified side; M19.90 Unspecified osteoarthritis, unspecified site; E78.00 Pure hypercholesterolemia, unspecified; E78.5 Hyperlipidemia, unspecified; J44.9 Chronic obstructive pulmonary disease, unspecified; F41.9 Anxiety disorder, unspecified; L03.032 Cellulitis of left toe; F03.90 Unspecified dementia, unspecified severity, without behavioral disturbance, psychotic disturbance, mood disturbance, and anxiety; K21.9 Gastro-esophageal reflux disease without esophagitis; B96.20 Unspecified Escherichia coli [E. coli] as the cause of diseases classified elsewhere; Z87.891 Personal history of nicotine dependence; Z87.01 Personal history of pneumonia (recurrent); Z87.440 Personal history of urinary (tract) infections; Z68.22 Body mass index [BMI] 22.0-22.9, adult; Z91.81 History of falling; Z79.891 Long term (current) use of opiate analgesic; Z79.899 Other long term (current) drug therapy; Z88.0 Allergy status to penicillin; Z88.2 Allergy status to sulfonamides; Z95.820 Peripheral vascular angioplasty status with implants and grafts; Z86.73 Personal history of transient ischemic attack (TIA), and cerebral infarction without residual deficits

== ENCOUNTER 2019-10-18 12:01 | Inpatient (IN) | payer MEDICARE, MEDICAID ==
[~2019-10-18] VITALS: Ht 170.2 cm; Wt 59.0 kg
[~2019-10-18 12:01] MED LIST changes: +ACETAMINOPHEN325 MG PO; +ASPIRIN325 PO; +CENTRUM SILVER1 EACH PO; +CLARITIN10 M3 PO; +DULCOLAX10 MG RECTAL; +ENOXAPARIN40 MG/0.1 SUBQ; +FLOMAX0.4 MG PO; +HUMALOG100 UNIT/1 SUBQ; +HYDROCODON-ACE1 EAC7 PO; +IRON325 PO; +KLOR-CON 1010 MEQ PO; +MACROBID 100 M100 MG PO; +MELATONIN5 MG PO; +MILK OF MA400 MG/5 M PO; +MIRALAX119 GM PO; +NEURONTIN100 MG PO; +TENORMIN25 MG PO; +ZOCOR 20 MG TAB20 M1 PO
[2019-10-18 12:02] VITALS: BP 114/60; BP 115/35
[2019-10-18] MEDS ORDERED: LEVO-T25 MCG PO (12:15)
[2019-10-18] MEDS ORDERED: IPRAT-ALBUT 0.5-3 ML INH (12:15)
[2019-10-18 13:04] LABS: ABSOLUTE EOSINOPHILS 0.1 thou/uL (0.0-0.7); ABSOLUTE MONOCYTES 0.6 thou/uL (0.0-1.2); ABSOLUTE NEUTROPHILS 3.4 thou/uL (1.6-8.1); BASOPHILS 0.9 %; EOSINOPHILS 1.2 %; HEMATOCRIT 33.6 % (37.0-47.0); HEMOGLOBIN 11.2 gm/dL (12.0-15.0); LYMPHOCYTES 19.2 %; MCH 29.1 pg (26.0-34.0); MCHC 33.3 g/dL (28.0-37.0); MCV 87.4 fL (80.0-100.0); MONOCYTES 11.3 %; MPV 8.2 fl. (7.2-11.1); NUCLEATED RBCS 0 /100WBC; PLATELET COUNT* 126 thou/uL (150-400); POLYS 67.4 %; RBC 3.84 mil/uL (4.20-5.00); RDW-CV 14.5 % (10.5-14.5)
[2019-10-18 13:12] LABS: CALCIUM 8.8 mg/dL (8.5-10.1); CREATININE 1.2 mg/dL (0.6-1.3); POTASSIUM 4.1 mmol/L (3.5-5.1)
[2019-10-18 13:17] LABS: ALBUMIN 2.7 g/dL (3.4-5.0); TOTAL BILIRUBIN 0.2 mg/dL (<0.1-1.0)
[2019-10-18 14:42] LABS: URINE BILIRUBIN NEGATIVE (Negative); URINE BLOOD NEGATIVE (Negative); URINE CLARITY CLEAR; URINE COLOR YELLOW; URINE GLUCOSE-RANDOM NEGATIVE (Negative); URINE KETONES TRACE (Negative); URINE LEUKOCYTES-REFLEX 1+ (Negative); URINE NITRITE-REFLEX POSITIVE (Negative); URINE PROTEIN NEGATIVE (Negative); URINE SPECIFIC GRAVITY >= 1.030 (1.005-1.030); URINE UROBILINOGEN 0.2 E.U./dl (0.2-1.0)
[2019-10-18 14:57] LABS: BACTERIA-REFLEX >30 Many /HPF (None Seen); CASTS None Seen /LPF (None Seen); CRYSTALS None Seen /LPF (None Seen); SQUAMOUS 0-3 Few /LPF (0-3); URINE RBC 0-2 Rare /HPF (0-2); URINE WBC-REFLEX 0-5 Rare /HPF (0-5)
[2019-10-18 18:51] VITALS: BP 185/66
[2019-10-18 19:30] VITALS: BP 170/71
[2019-10-18 20:45] VITALS: BP 170/71
[2019-10-19 04:16] LABS: HEMOGLOBIN 9.4 gm/dL (12.0-15.0); MCHC 33.6 g/dL (28.0-37.0); MCV 86.4 fL (80.0-100.0); MPV 8.1 fl. (7.2-11.1); RBC 3.24 mil/uL (4.20-5.00); RDW-CV 14.5 % (10.5-14.5); WBC 3.9 thou/uL (4.0-11.0)
[2019-10-19 04:29] LABS: CALCIUM 8.4 mg/dL (8.5-10.1); CREATININE 0.9 mg/dL (0.6-1.3); MAGNESIUM 1.2 mg/dL (1.8-2.4); POTASSIUM 3.4 mmol/L (3.5-5.1)
--- NOTE | 2019-10-19 06:26 | NUR ---
NEW ADMISSION THIS SHIFT. HAS SLEPT FAIRLY WELL OVERNIGHT. INCONTINENT URINE, MISA CARE GIVEN. PT TURNED AND REPOSITIONED Q2 HOURS AND PRN FOR SKIN CARE AND COMFORT. L FOOT GREAT TOE AMPUTATION, INCISION PINK AND HEALING. DRSG APPLIED ORDERED AND WOUND CARE CONSULTED.RFA IVF INFUSING PER PUMP. AM LABS-ELECTROLYTE PROTOCOL INITIATED. ACCUCHECK HS 99. AOX3, FORGETFUL-HX DEMENTIA. CALL LITE IN EASY REACH, BED ALARM ON FOR SAFETY.
[2019-10-19 08:10] VITALS: BP 164/75
--- NOTE | 2019-10-19 09:53 | NUR ---
Nutrition: consult for wound; pt w/ recent toe amputation. Wt up from a year ago in 120 lb range. Albumin 2.7. MVI and other meds reviewed. Pt with hx of Dm, HTN, GERD, dementia; from [place]. Nsg reported pt ate 75% or more of breakfast this am. Encourage intake of HBV-protein at meals. Low nutrition risk.
--- NOTE | 2019-10-19 14:40 | NUR ---
WOUND NURSE: PATIENT WITH POSTOPERATIVE INCISON ON THE LEFT FOOT -- GREAT TOE AMP. EDGES ARE WELL APPROXIMATED, NO DRAINAGE, REDNESS,WARMTH, OR INDURATION. GOOD CAPILLARY REFILL. SUTURESS HAD PREVIOUSLY BEEN REMOVED. DR VASQUEZ WAS SURGEON WHO REMOVED THE GREAT TOE PER THE PATIENT'S . CLEANSED WITH NS AND GAUZE, THEN COVERED WITH 4X4'S, WRAPPED WITH KERLEX, SECURED WITH TAPE. THIS WAS TOLERATED WELL BY THE PATIENT. PATIENT IS MILDLY CONFUSED AND NOT TEACHEABLE AT TIME OF THIS ASSESSMENT. SPOUSE IS PRESENT AND UNDERSTANDS THE MANAGEMENT OF THIS LESION.
[2019-10-19 16:00] VITALS: BP 121/45
--- NOTE | 2019-10-19 16:35 | NUR ---
PATIENT INCONTINENT OF URINE THIS SHIFT BUT DID USE THE BSC WHILE WORKING WITH PT. PATIENT UP WITH ONE ASSIST. IVF AND SCHED ABX INFUSED ORDERED, IV SL THIS AM PER ORDERS. DRESSING TO LEFT FOOT CHANGED BY WOUND CARE. PRN HYDROCODONE GIVEN X 1 FOR LEFT FOOT PAIN, GOOD RELIEF NOTED. MG REPLACED AND REDRAW AT 1700 PER PROTOCOL.
[2019-10-19 18:05] LABS: MAGNESIUM 1.2 mg/dL (1.8-2.4); POTASSIUM 4.3 mmol/L (3.5-5.1)
[2019-10-19 22:35] VITALS: BP 134/53
[2019-10-20 04:37] LABS: HEMATOCRIT 28.8 % (37.0-47.0); HEMOGLOBIN 9.7 gm/dL (12.0-15.0); MCHC 33.7 g/dL (28.0-37.0); MCV 86.1 fL (80.0-100.0); MPV 7.8 fl. (7.2-11.1); RBC 3.34 mil/uL (4.20-5.00); RDW-CV 14.6 % (10.5-14.5); WBC 3.8 thou/uL (4.0-11.0)
[2019-10-20 04:49] LABS: CALCIUM 8.9 mg/dL (8.5-10.1); CREATININE 0.9 mg/dL (0.6-1.3); MAGNESIUM 2.8 mg/dL (1.8-2.4); POTASSIUM 3.9 mmol/L (3.5-5.1)
--- NOTE | 2019-10-20 07:32 | NUR ---
PATIENT HAS SLEPT WELL MOST OF THE NIGHT. VSS ON RA. NO C/O PAIN. MEDICATIONS GIVEN ORDERED AND CHARTED. PATIENT UP WITH ASSIST X 1 TO THE BSC. PATIENT FORGETFUL AT TIMES. DRESSING TO LEFT LOWER EXTREMITY IS C/D/I. IV IN RIGHT FOREARM-SL. FALL PRECAUTIONS IN PLACE AND HOURLY ROUNDS MADE. NURSING TO CONTINUE MONITORING
[2019-10-20] MEDS ORDERED: LISINOPRIL20 MG PO (08:00)
[2019-10-20] MEDS ORDERED: LEVAQUIN 500 M500 M3 PO (08:00)
[2019-10-20 08:05] VITALS: BP 144/64
--- NOTE | 2019-10-20 12:18 | NUR ---
FAXED DISCHARGE ORDERS TO [facility]. SHE WILL LET CM KNOW OF VAN TRANSPORT TIME.
[2019-10-20 12:30] VITALS: BP 144/64
--- NOTE | 2019-10-20 16:26 | NUR ---
PT DISCHARGED TO [facility] AT 1620 BY WHEEL CHAIR VAN. IV OUT. REPORT CALLED. PERSONAL ITEMS SENT WITH PT. PT STABLE UPON DISCHARGE
== END 2019-10-20 16:34 | DRG 689 ==
LOC: M.ERS 12:01 → M.ORTHSURG 15:54 → M.TBA-ER 15:54 → M.ORTHSURG 18:59
PROVIDERS: Personal Emergency Response Attendant; ADMIT Internal Medicine; ATTEND Internal Medicine
DX: N39.0 Urinary tract infection, site not specified (principal); G92 Toxic encephalopathy; E44.1 Mild protein-calorie malnutrition; R65.10 Systemic inflammatory response syndrome (SIRS) of non-infectious origin without acute organ dysfunction; E78.5 Hyperlipidemia, unspecified; J44.9 Chronic obstructive pulmonary disease, unspecified; E11.9 Type 2 diabetes mellitus without complications; I10 Essential (primary) hypertension; M19.90 Unspecified osteoarthritis, unspecified site; F41.9 Anxiety disorder, unspecified; E78.00 Pure hypercholesterolemia, unspecified; Z20.828 Contact with and (suspected) exposure to other viral communicable diseases; Z68.20 Body mass index [BMI] 20.0-20.9, adult; Z86.73 Personal history of transient ischemic attack (TIA), and cerebral infarction without residual deficits; Z87.01 Personal history of pneumonia (recurrent); Z87.891 Personal history of nicotine dependence; Z79.899 Other long term (current) drug therapy; Z79.4 Long term (current) use of insulin; Z79.82 Long term (current) use of aspirin; Z88.0 Allergy status to penicillin; Z88.2 Allergy status to sulfonamides; Z89.412 Acquired absence of left great toe; Z90.710 Acquired absence of both cervix and uterus

== ENCOUNTER 2020-06-16 19:36 | Inpatient (IN) | payer MEDICARE, MEDICAID ==
[~2020-06-16] VITALS: Ht 170.2 cm; Wt 1.2 kg
--- NOTE | ~2020-06-16 | CON ---
[address] [address] CONSULTATION Name: DAHLIAKURT HAWK Room: [address] IN M.R.#: [id number] Admission: 06/16/20 Attend Phys: Karissa Rand MD Discharge: Date of : 40 Report #: [id number] THIS REPORT FOR: cc: Sina Chung MD, James MD ~ Dilcia Reece MD DATE OF SERVICE: 06/17/2020 NEPHROLOGY CONSULTATION CONSULTING PHYSICIAN: Karissa Rand MD REASON FOR NEPHROLOGY CONSULTATION: Hypernatremia, acute kidney injury. REASON FOR ADMISSION: Sent over from senior care because she was feeling sick, having nausea, vomiting and abnormal kidney function. HISTORY OF PRESENT ILLNESS: This is a 79-year-old female with history of dementia, brought in from the senior care because she has been feeling sick for the past 1 week having nausea and vomiting and also she was found to have high BUN in 80s. Here, she was found to have an initial hemoglobin of 10.3, which went down to 7.9; platelet count of 101, which went down to 63; her sodium was high at 154. She also had evidence of acute kidney injury. Her creatinine was 2.2, her BUN was 82. She had a CT of her abdomen without contrast, which showed enterocolitis, but her kidneys looked normal and she has been having some diarrhea this morning as well. She was sleeping on my examination. She was started on IV fluids. Her BUN was already down to 69, creatinine is down to 1.8. Sodium was still 154 on her last check. She also has evidence of elevated lactate. Her blood pressures have been towards the normal side. ALLERGIES: PENICILLIN AND SULFA. REVIEW OF SYSTEMS: As mentioned in history of present illness, otherwise detailed review of systems cannot be done from the patient because she was currently resting. PAST MEDICAL AND SURGICAL HISTORY: Includes diabetes, hypertension, sciatica, disk bulge, syncope, anemia, history of TIA, acute respiratory failure, intubation, pneumonia, hypernatremia, dehydration, UTI, DJD, frequent falls, history of smoking, alcohol use in the past, diarrhea, dyslipidemia, fatigue, upper gastrointestinal bleed, COPD, bleeding prepyloric ulcer, metabolic acidosis, aspiration pneumonia, malnutrition, anemia, anxiety, osteoarthritis. HOME MEDICATIONS: Include Benadryl, Plavix, doxycycline, Florastor, [place], [place] [address] CONSULTATION Name: KURT VILLAGOMEZ Room: [address] IN [facility]#: [id number] Admission: 06/16/20 Attend Phys: Karissa Rand MD Discharge: Date of : 40 Report #: [id number] Lantus, hydrocodone, ipratropium/albuterol, levothyroxine, Protonix, Namenda, Centrum Silver, clonidine, Flomax, potassium chloride, full-dose aspirin, MiraLax, Zocor, gabapentin, senna, Dulcolax, milk of magnesia, acetaminophen as needed. FAMILY HISTORY: Noncontributory. SOCIAL HISTORY: She lives in a senior care. Does not smoke or drink alcohol or use illicit drugs. PHYSICAL EXAMINATION: VITAL SIGNS: Blood pressure is 109/52, respiratory rate is 18, pulse rate is 88, temperature 36.8 and she was on no oxygen and her pulse ox was 100%. GENERAL: The patient is currently sleeping. HEAD AND EYES: Atraumatic and normocephalic. Conjunctivae normal. EARS, NOSE, AND THROAT: Normal ears and nose. Mucous membranes look dry. NECK: No JVD. CHEST: Bilaterally clear to auscultation anteriorly. No crackles or wheezing. CARDIOVASCULAR: S1, S2 normal. No murmurs. ABDOMEN: Soft, nondistended, nontender. EXTREMITIES: Lower extremities, there is no lower extremity edema. She has a left groin wound with stitches in it, which is dressed otherwise. GENITOURINARY: She has a Gutierrez catheter, which is draining clear urine. NEUROLOGICAL FUNCTION: She is currently resting. PSYCHIATRIC: Not able to evaluate. LABORATORY DATA: Her hemoglobin is 7.9, platelet count 263,000 this morning. Sodium was 154 earlier this morning, potassium was at 3.6, CO2 was 15, BUN was 69, creatinine was 1.8 down from 2.2. Lactate was 4.8, which is down from 5.1 and other labs were reviewed. IMAGING: CT abdomen and chest x-ray were reviewed. ASSESSMENT: 1. Acute kidney injury in the setting of volume depletion, diarrhea, nausea and vomiting, baseline creatinine could be around 0.9 in 10/2019, but she came in with a creatinine of 2.2, BUN of 82, which is getting better with IV fluids. Urinalysis showed increased pH, trace protein and no hematuria. Kidneys looked normal on CT abdomen. 2. Hypernatremia in the setting of volume depletion. 3. Anion gap metabolic acidosis in the setting of renal insufficiency. 4. Lactic acidosis, which is improving, could be because of hypoperfusion and defer to Internal Medicine to further follow that up. 5. [place] [address] CONSULTATION Name: KURT VILLAGOMEZ Room: [address] IN [facility]#: [id number] Admission: 06/16/20 Attend Phys: Karissa Rand MD Discharge: Date of : 40 Report #: [id number] 6. [facility] resident. 7. Enterocolitis. 8. Anemia. Hemoglobin has dropped from 10.3 to 7.9. 9. Thrombocytopenia. Defer to Internal Medicine. PLAN: 1. We will change her IV fluids to D5 water with 75 mEq of sodium bicarbonate to run at 125 mL an hour, strict I's and O's. She already has a Gutierrez catheter in place. 2. Avoid nephrotoxic agents. Try to keep MAP 65-70. 3. Check her morning labs. Thank you for this consultation. We will follow with you. Discussed with the patient's nurse in detail. By: [id number] Reece MD /cameron
--- NOTE | ~2020-06-16 | PROC ---
[address] [address] PROCEDURE REPORT Name: KURT VILLAGOMEZ Room: [address] IN M.R.#: [id number] Admission: 06/16/20 Attend Phys: Karissa Rand MD Discharge: Date of : 40 Report #: [id number] THIS REPORT FOR: cc: Sina Chung MD, James MD ~ [facility],Medical Records Staff For GI report, please see the Provation report in Perceptive 7 content. By: [id number] Records Staff [facility] /ERICK
--- NOTE | ~2020-06-16 | PROC ---
[address] [address] PROCEDURE REPORT Name: KURT VILLAGOMEZ Room: [address] IN M.R.#: [id number] Admission: 06/16/20 Attend Phys: Karissa Rand MD Discharge: Date of : 40 Report #: [id number] THIS REPORT FOR: cc: Sina Chung MD, James MD ~ [facility],Medical Records Staff For GI report, please see the Provation report in Perceptive 7 content. By: [id number] Records Staff [facility] /ERICK
[~2020-06-16 19:36] MED LIST changes: +LEVAQUIN 500 M500 M3 PO; +LEVO-T25 MCG PO
[2020-06-16 19:43] VITALS: BP 158/64
[2020-06-16] MEDS ORDERED: BENADRYL25 MG PO (19:53)
[2020-06-16] MEDS ORDERED: PLAVIX 75 MG TA75 MG PO (19:53)
[2020-06-16] MEDS ORDERED: DORYX MPC120 MG PO (19:53)
[2020-06-16] MEDS ORDERED: SLOW FE142 MG PO (19:54)
[2020-06-16] MEDS ORDERED: FLORASTOR250 MG PO (19:54)
[2020-06-16] MEDS ORDERED: LANTUS SUBQ (19:54)
[2020-06-16] MEDS ORDERED: NORCO7.5 PO (19:55)
[2020-06-16 20:51] LABS: ABSOLUTE LYMPHOCYTES 1.9 thou/uL (0.8-5.3); ABSOLUTE MONOCYTES 0.2 thou/uL (0.0-1.2); ABSOLUTE NEUTROPHILS 3.7 thou/uL (1.6-8.1); BASOPHILS 0.3 %; HEMATOCRIT 31.4 % (37.0-47.0); HEMOGLOBIN 10.3 gm/dL (12.0-15.0); LYMPHOCYTES 32.3 %; MCH 27.5 pg (26.0-34.0); MCHC 32.8 g/dL (28.0-37.0); MCV 83.8 fL (80.0-100.0); MPV 8.4 fl. (7.2-11.1); NUCLEATED RBCS 0 /100WBC; PLATELET COUNT* 101 thou/uL (150-400); POLYS 63.4 %; RBC 3.74 mil/uL (4.20-5.00); WBC 5.8 thou/uL (4.0-11.0)
[2020-06-16 20:58] LABS: URINE BILIRUBIN NEGATIVE (Negative); URINE BLOOD NEGATIVE (Negative); URINE COLOR YELLOW; URINE GLUCOSE-RANDOM NEGATIVE (Negative); URINE KETONES NEGATIVE (Negative); URINE LEUKOCYTES-REFLEX NEGATIVE (Negative); URINE NITRITE-REFLEX POSITIVE (Negative); URINE PROTEIN TRACE (Negative); URINE UROBILINOGEN 0.2 E.U./dl (0.2-1.0)
[2020-06-16 20:59] LABS: URINE CLARITY HAZY
[2020-06-16 21:00] LABS: INR 1.1; PROTIME 11.9 Seconds (9.20-11.50)
[2020-06-16 21:02] LABS: CALCIUM 9.2 mg/dL (8.5-10.1); CREATININE 2.2 mg/dL (0.6-1.3); POTASSIUM 4.5 mmol/L (3.5-5.1)
[2020-06-16 21:09] LABS: BACTERIA-REFLEX >30 Many /HPF (None Seen); CASTS None Seen /LPF (None Seen); CRYSTALS None Seen /LPF (None Seen); SQUAMOUS 0-3 Few /LPF (0-3); URINE RBC None Seen /HPF (0-2); URINE WBC-REFLEX None Seen /HPF (0-5)
[2020-06-16 21:13] LABS: ALBUMIN 2.6 g/dL (3.4-5.0); MAGNESIUM 2.2 mg/dL (1.8-2.4); TOTAL BILIRUBIN 0.4 mg/dL (<0.1-1.0); TOTAL PROTEIN 5.7 g/dL (6.4-8.2)
[2020-06-16 23:11] VITALS: BP 165/68
[2020-06-16 23:23] VITALS: BP 188/82
[2020-06-17] VITALS (7 sets, daily range): BP systolic 101–173; BP diastolic 52–83
[2020-06-17 01:23] LABS: HEMATOCRIT 23.7 % (37.0-47.0); MCH 27.4 pg (26.0-34.0); MCHC 33.1 g/dL (28.0-37.0); MCV 82.8 fL (80.0-100.0); MPV 7.5 fl. (7.2-11.1); RBC 2.86 mil/uL (4.20-5.00); RDW-CV 14.7 % (10.5-14.5); WBC 4.4 thou/uL (4.0-11.0)
[2020-06-17 01:28] LABS: HEMOGLOBIN 7.9 gm/dL (12.0-15.0)
[2020-06-17 01:52] LABS: CALCIUM 8.1 mg/dL (8.5-10.1); CREATININE 1.8 mg/dL (0.6-1.3); MAGNESIUM 1.9 mg/dL (1.8-2.4); POTASSIUM 3.6 mmol/L (3.5-5.1); TOTAL BILIRUBIN 0.2 mg/dL (<0.1-1.0); TOTAL PROTEIN 4.6 g/dL (6.4-8.2)
[2020-06-17 11:02] LABS: ALBUMIN 1.6 g/dL (3.4-5.0); CALCIUM 7.8 mg/dL (8.5-10.1); CREATININE 1.5 mg/dL (0.6-1.3); POTASSIUM 3.9 mmol/L (3.5-5.1); TOTAL BILIRUBIN 0.3 mg/dL (<0.1-1.0); TOTAL PROTEIN 4.9 g/dL (6.4-8.2)
[2020-06-17 13:28] LABS: HEMOGLOBIN 8.6 gm/dL (12.0-15.0); MCH 27.3 pg (26.0-34.0); MCHC 32.9 g/dL (28.0-37.0); MPV 7.3 fl. (7.2-11.1); RBC 3.13 mil/uL (4.20-5.00); RDW-CV 15.2 % (10.5-14.5); WBC 3.2 thou/uL (4.0-11.0)
[2020-06-18] VITALS (7 sets, daily range): BP systolic 121–176; BP diastolic 61–74
[2020-06-18 14:33] LABS: ABSOLUTE LYMPHOCYTES 0.8 thou/uL (0.8-5.3); ABSOLUTE MONOCYTES 0.1 thou/uL (0.0-1.2); ABSOLUTE NEUTROPHILS 2.1 thou/uL (1.6-8.1); BASOPHILS 0.1 %; EOSINOPHILS 1.3 %; HEMATOCRIT 22.8 % (37.0-47.0); HEMOGLOBIN 7.6 gm/dL (12.0-15.0); LYMPHOCYTES 25.2 %; MCH 27.3 pg (26.0-34.0); MCHC 33.3 g/dL (28.0-37.0); MCV 81.9 fL (80.0-100.0); MONOCYTES 4.8 %; MPV 7.5 fl. (7.2-11.1); NUCLEATED RBCS 0 /100WBC; POLYS 68.6 %; RBC 2.78 mil/uL (4.20-5.00); RDW-CV 14.5 % (10.5-14.5)
[2020-06-18 14:35] LABS: PLATELET COUNT* 33 thou/uL (150-400)
[2020-06-18 15:00] LABS: ALBUMIN 1.9 g/dL (3.4-5.0); CALCIUM 7.7 mg/dL (8.5-10.1); CREATININE 0.9 mg/dL (0.6-1.3); TOTAL BILIRUBIN 0.3 mg/dL (<0.1-1.0); TOTAL PROTEIN 4.6 g/dL (6.4-8.2)
[2020-06-18 15:02] LABS: POTASSIUM 2.8 mmol/L (3.5-5.1)
[2020-06-19 04:10] VITALS: BP 140/61
[2020-06-19 04:36] LABS: ABSOLUTE EOSINOPHILS 0.2 thou/uL (0.0-0.7); ABSOLUTE LYMPHOCYTES 1.1 thou/uL (0.8-5.3); ABSOLUTE MONOCYTES 0.1 thou/uL (0.0-1.2); ABSOLUTE NEUTROPHILS 2.4 thou/uL (1.6-8.1); BASOPHILS 0.2 %; EOSINOPHILS 4.1 %; HEMOGLOBIN 7.6 gm/dL (12.0-15.0); LYMPHOCYTES 29.1 %; MCH 27.2 pg (26.0-34.0); MCHC 32.9 g/dL (28.0-37.0); MCV 82.7 fL (80.0-100.0); MONOCYTES 3.9 %; MPV 8.8 fl. (7.2-11.1); NUCLEATED RBCS 0 /100WBC; POLYS 62.7 %; RBC 2.78 mil/uL (4.20-5.00); RDW-CV 14.6 % (10.5-14.5); WBC 3.8 thou/uL (4.0-11.0)
[2020-06-19 05:10] LABS: PLATELET COUNT* 36 thou/uL (150-400)
[2020-06-19 05:20] LABS: ALBUMIN 1.9 g/dL (3.4-5.0); CALCIUM 7.7 mg/dL (8.5-10.1); CREATININE 0.7 mg/dL (0.6-1.3); POTASSIUM 3.2 mmol/L (3.5-5.1); TOTAL BILIRUBIN 0.4 mg/dL (<0.1-1.0); TOTAL PROTEIN 4.5 g/dL (6.4-8.2)
[2020-06-19 08:00] VITALS: BP 122/51
--- NOTE | 2020-06-19 10:37 | EKG ---
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 : 1940 Requested By: Alicia Soto Order Number: [id number] MD: Jose Stephenson Measurements Intervals [place] Rate: 99 P: 53 CA: 126 QRS: 20 QRSD: 85 T: 40 QT: 349 QTc: 448 Interpretive Statements Sinus tachycardia Supraventricular bigeminy Borderline low voltage, extremity leads Compared to ECG 07/05/2019 00:25:41 Atrial premature complex(es) now present Sinus rhythm no longer present Electronically Signed On 06-19-2020 10:36:59 CDT by Jose Stephenson [email or web address] <ELECTRONICALLY SIGNED> By: Jose Stephenson MD, FACC 06/19/20 1036 50 50 Jose Stephenson MD, FAC /EPI
[2020-06-19 12:00] VITALS: BP 121/47
[2020-06-19 18:42] VITALS: BP 143/55
[2020-06-19 20:38] VITALS: BP 122/65
[2020-06-20] VITALS (8 sets, daily range): BP systolic 146–170; BP diastolic 55–80
[2020-06-20 04:51] LABS: MCH 27.3 pg (26.0-34.0); MCHC 33.2 g/dL (28.0-37.0); MCV 82.1 fL (80.0-100.0); MPV 8.6 fl. (7.2-11.1); RBC 2.56 mil/uL (4.20-5.00); RDW-CV 14.4 % (10.5-14.5); WBC 4.6 thou/uL (4.0-11.0)
[2020-06-20 05:09] LABS: ALBUMIN 1.9 g/dL (3.4-5.0); CALCIUM 7.5 mg/dL (8.5-10.1); CREATININE 0.6 mg/dL (0.6-1.3); MAGNESIUM 1.3 mg/dL (1.8-2.4); POTASSIUM 3.7 mmol/L (3.5-5.1); TOTAL BILIRUBIN 0.4 mg/dL (<0.1-1.0); TOTAL PROTEIN 4.7 g/dL (6.4-8.2)
[2020-06-20 05:28] LABS: % SATURATION 12 % (20-39); IRON 10 ug/dL (50-175)
[2020-06-21] VITALS (7 sets, daily range): BP systolic 119–189; BP diastolic 60–84
[2020-06-21 05:25] LABS: HEMATOCRIT 20.7 % (37.0-47.0); MCH 27.1 pg (26.0-34.0); MPV 9.1 fl. (7.2-11.1); RBC 2.52 mil/uL (4.20-5.00); RDW-CV 14.3 % (10.5-14.5); WBC 5.3 thou/uL (4.0-11.0)
[2020-06-21 05:37] LABS: HEMOGLOBIN 6.8 gm/dL (12.0-15.0)
[2020-06-21 05:48] LABS: ALBUMIN 1.8 g/dL (3.4-5.0); CALCIUM 7.6 mg/dL (8.5-10.1); CREATININE 0.6 mg/dL (0.6-1.3); MAGNESIUM 1.2 mg/dL (1.8-2.4); POTASSIUM 3.2 mmol/L (3.5-5.1); TOTAL BILIRUBIN 0.3 mg/dL (<0.1-1.0); TOTAL PROTEIN 4.7 g/dL (6.4-8.2)
[2020-06-21 13:02] LABS: HEMOGLOBIN 9.8 gm/dL (12.0-15.0)
[2020-06-22] VITALS (7 sets, daily range): BP systolic 113–168; BP diastolic 65–84
[2020-06-22 04:57] LABS: HEMATOCRIT 25.6 % (37.0-47.0); HEMOGLOBIN 8.5 gm/dL (12.0-15.0); MCH 27.5 pg (26.0-34.0); MCHC 33.3 g/dL (28.0-37.0); MCV 82.5 fL (80.0-100.0); MPV 8.1 fl. (7.2-11.1); RBC 3.1 mil/uL (4.20-5.00); WBC 7.8 thou/uL (4.0-11.0)
[2020-06-22 05:09] LABS: CALCIUM 7.5 mg/dL (8.5-10.1); CREATININE 0.6 mg/dL (0.6-1.3)
[2020-06-22 05:10] LABS: POTASSIUM 4.2 mmol/L (3.5-5.1)
[2020-06-23 03:30] VITALS: BP 149/68
[2020-06-23 11:03] LABS: HEMATOCRIT 26.4 % (37.0-47.0); HEMOGLOBIN 8.6 gm/dL (12.0-15.0); MCH 26.9 pg (26.0-34.0); MCHC 32.6 g/dL (28.0-37.0); MCV 82.5 fL (80.0-100.0); MPV 7.1 fl. (7.2-11.1); NUCLEATED RBCS 0 /100WBC; RDW-CV 15.1 % (10.5-14.5); WBC 6.9 thou/uL (4.0-11.0)
[2020-06-23 11:04] LABS: PLATELET COUNT* 254 thou/uL (150-400)
[2020-06-23 11:24] LABS: ABSOLUTE EOSINOPHILS 0.3 thou/uL (0.0-0.7); ABSOLUTE LYMPHOCYTES 1.1 thou/uL (0.8-5.3); ABSOLUTE MONOCYTES 0.3 thou/uL (0.0-1.2); ABSOLUTE NEUTROPHILS 5.2 thou/uL (1.6-8.1); METAMYELOCYTES 3 %; PLATELET ESTIMATE ADEQUATE
[2020-06-23 12:13] VITALS: BP 167/93
[2020-06-23 16:53] VITALS: BP 157/67
[2020-06-24] VITALS (7 sets, daily range): BP systolic 143–198; BP diastolic 68–91
[2020-06-24 04:38] LABS: HEMATOCRIT 24.7 % (37.0-47.0); HEMOGLOBIN 8.2 gm/dL (12.0-15.0); MCH 27.2 pg (26.0-34.0); MCHC 33.1 g/dL (28.0-37.0); MCV 82.2 fL (80.0-100.0); MPV 7.1 fl. (7.2-11.1); RDW-CV 15.4 % (10.5-14.5); WBC 5.6 thou/uL (4.0-11.0)
[2020-06-24 05:01] LABS: ALBUMIN 1.6 g/dL (3.4-5.0); CALCIUM 7.4 mg/dL (8.5-10.1); CREATININE 0.5 mg/dL (0.6-1.3); MAGNESIUM 1.1 mg/dL (1.8-2.4); TOTAL BILIRUBIN 0.3 mg/dL (<0.1-1.0); TOTAL PROTEIN 4.5 g/dL (6.4-8.2)
[2020-06-24 05:24] LABS: POTASSIUM 2.9 mmol/L (3.5-5.1)
[2020-06-25 04:00] VITALS: BP 137/60
[2020-06-25 08:00] VITALS: BP 149/62
[2020-06-25 12:00] VITALS: BP 151/74
[2020-06-25 16:00] VITALS: BP 164/83
[2020-06-25 20:00] VITALS: BP 181/85
[2020-06-26] VITALS: BP 141/60
[2020-06-26 05:15] LABS: HEMATOCRIT 23.7 % (37.0-47.0); HEMOGLOBIN 7.9 gm/dL (12.0-15.0); MCH 27.8 pg (26.0-34.0); MCHC 33.5 g/dL (28.0-37.0); MPV 6.9 fl. (7.2-11.1); RBC 2.85 mil/uL (4.20-5.00); RDW-CV 15.6 % (10.5-14.5); WBC 4.9 thou/uL (4.0-11.0)
[2020-06-26 05:28] LABS: CALCIUM 7.8 mg/dL (8.5-10.1); CREATININE 0.6 mg/dL (0.6-1.3); POTASSIUM 3.5 mmol/L (3.5-5.1)
[2020-06-26 05:36] VITALS: BP 160/75
[2020-06-26 08:00] VITALS: BP 137/71
[2020-06-26 12:00] VITALS: BP 121/58
--- NOTE | 2020-06-27 12:07 | PATH ---
[address] [address] PATHOLOGY RPT PROCEDURE Name: MAYELA SHUKLA Room: [address] IN M.R.#: [id number] Admission: 06/16/20 Date of : 40 Discharge: 06/26/20 Report #: [id number] Path Case #: [id number] [facility] Accession Number: [id number] . 01 Material submitted: . PART A: duodenum - DUODENAL BIOPSIES PART B: gastrointestinal site - GASTRIC BIOPSIES . 01 Clinical history: . EGD IN OR ARF HYPERNATREMIA UTI DEHYDRATION ELEV TROPONIN . 02 Diagnosis: A. Small bowel "duodenal", endoscopic biopsy: - Duodenal mucosa with Trish's glands hyperplasia. - Negative for active inflammation, dysplasia, and malignancy. . B. Stomach "gastric", endoscopic biopsy: - Gastric antral and oxyntic mucosa with features of reactive gastropathy, arising in a background of mild chronic inflammation. - Negative for active inflammation, intestinal metaplasis, dysplasia, and malignancy. - Negative for Helicobacter pylori. (MLK:pit; 06/26/2020) QTP 06/27/2020 1101 Local . 02 Electronically signed: . Kody Blandon MD, Pathologist NPI- [id number] . 01 Gross description: . A. The specimen is received in formalin, labeled "Mayela Shukla, duodenal biopsies". Received are two segments of pale levine tissue measuring 0.3 cm each in maximum dimensions. The specimen is submitted entirely in cassette A1. . B. The specimen is received in formalin, labeled "Mayela Shukla, gastric biopsies". Received are two segments of pale levine tissue measuring 0.3 and 0.4 cm in maximum dimensions. The specimen is submitted entirely in cassette B1. (CAA; 06/22/2020) QAC/QAC 06/22/2020 1851 Local . 02 Microscopic: . Immunohistochemical stain results (properly controlled) Helicobacter pylori (B1) - Negative for organisms. (MLK:pit; 06/26/2020) . 02 [place] [address] PATHOLOGY RPT PROCEDURE Name: MAYELA SHUKLA Room: [address] DIS IN M.R.#: [id number] Admission: 06/16/20 Date of : 40 Discharge: 06/26/20 Report #: [id number] Path Case #: [id number] Pathologist provided ICD-10: K31.9, K29.50 . 02 CPT . 458758, [id number], [id number] Specimen Comment: A courtesy copy of this report has been sent to [phone] Specimen Comment: [phone] Specimen Comment: Report sent to ,DR GORDON / DR DAIGLE Performed at: 01 [facility] [address] [id number] MD Damien Mclaughlin MD Phone: [phone] Performed at: 02 [facility] [address] [id number] MD Brendan Nath MD Phone: [phone]
== END 2020-06-26 13:53 | DRG 871 ==
LOC: M.ERS 19:36 → M.2W 21:50 → M.TBA-ER 21:50 → M.2W 22:40
PROVIDERS: Emergency Medicine; Family Medicine; Internal Medicine; Nurse Practitioner Adult Health; Surgery; ADMIT Internal Medicine; ATTEND Internal Medicine
PROC: 30233N1 Transfusion of Nonautologous Red Blood Cells into Peripheral Vein, Percutaneous Approach (ICD-10-PCS; 2020-06-21)
PROC: 0DB98ZX Excision of Duodenum, Via Natural or Artificial Opening Endoscopic, Diagnostic (ICD-10-PCS; 2020-06-21)
PROC: 0DB68ZX Excision of Stomach, Via Natural or Artificial Opening Endoscopic, Diagnostic (ICD-10-PCS; 2020-06-21)
PROC: B548ZZA Ultrasonography of Superior Vena Cava, Guidance (ICD-10-PCS; principal; 2020-06-22)
PROC: 02HV33Z Insertion of Infusion Device into Superior Vena Cava, Percutaneous Approach (ICD-10-PCS; principal; 2020-06-22)
DX: A41.9 Sepsis, unspecified organism (principal); N17.0 Acute kidney failure with tubular necrosis; E43 Unspecified severe protein-calorie malnutrition; K29.71 Gastritis, unspecified, with bleeding; D62 Acute posthemorrhagic anemia; E87.0 Hyperosmolality and hypernatremia; N30.00 Acute cystitis without hematuria; K52.9 Noninfective gastroenteritis and colitis, unspecified; E83.42 Hypomagnesemia; E87.6 Hypokalemia; I10 Essential (primary) hypertension; F03.90 Unspecified dementia, unspecified severity, without behavioral disturbance, psychotic disturbance, mood disturbance, and anxiety; M19.90 Unspecified osteoarthritis, unspecified site; E87.8 Other disorders of electrolyte and fluid balance, not elsewhere classified; E11.65 Type 2 diabetes mellitus with hyperglycemia; E78.00 Pure hypercholesterolemia, unspecified; D69.6 Thrombocytopenia, unspecified; K44.9 Diaphragmatic hernia without obstruction or gangrene; D50.9 Iron deficiency anemia, unspecified; K31.89 Other diseases of stomach and duodenum; J44.9 Chronic obstructive pulmonary disease, unspecified; Z20.822 Contact with and (suspected) exposure to COVID-19; Z66 Do not resuscitate; Z86.73 Personal history of transient ischemic attack (TIA), and cerebral infarction without residual deficits; Z88.2 Allergy status to sulfonamides; Z88.0 Allergy status to penicillin; Z79.4 Long term (current) use of insulin; Z79.899 Other long term (current) drug therapy; Z87.891 Personal history of nicotine dependence; Z90.710 Acquired absence of both cervix and uterus